=== PATIENT | male | born 1970 | race Caucasian/White ===

== ENCOUNTER 2021-07-15 11:17 | Observation (INO) | payer BC, SELFPAY ==
--- NOTE | ~2021-07-15 | XR_ITS ---
EXAMINATION: XR abdomen/kub 1V INDICATION: Bilateral flank pain TECHNIQUE: Supine views of the abdomen were obtained on 2 radiographs. COMPARISON: 05/10/[address] from yesterday FINDINGS: There is a 3 mm stone in the left kidney lower pole. The 4 mm stone of the right kidney upp er pole described on yesterday's CT examination is not identified. A moderate volume of colonic stool is present. There is mild osteoarthritis of the hips. Surgical clips are noted in the left pelvis. A chronic L3 compression fracture is noted. IMPRESSION: 1. Left nephrolithiasis. Reviewed, dictated and finalized at location A. IMPRESSION: 1. Left nephrolithiasis.
--- NOTE | ~2021-07-15 | CT_ITS ---
EXAMINATION: CT abdomen pelvis wo con DATE: 07/16/2021 08:41 INDICATION: Urinary frequency/burning, pyelonephritis, flank pain TECHNIQUE: Computed tomography (CT) of the abdomen and pelvis was performed without intravenous contr ast. The dose-length product (DLP) was 1141.84 mGy-cm. Automated exposure control and iterative recon struction technique were employed. COMPARISON: 05/08/2018 FINDINGS: There are patchy groundglass and nodular opacities of the visualized lung bases. Small pleu ral effusions are present. The heart size is normal. The liver, spleen, pancreas, and adrenal glands are normal. The gallbladder is mildly distended. There is a 3 mm nonobstructing stone in the lower po le of the left kidney. A 4 mm nonobstructing stone is present in the upper pole of the right kidney. There are no stones in the ureters or bladder. There is no hydronephrosis or hydroureter. The bladder is moderately distended. There is a 2.5 cm cyst of the left kidney. No pathologically enlarged abdom inal or pelvic lymph nodes are identified. There is no free intraperitoneal gas or evidence of bowel obstruction. The appendix is normal. There are bilateral inguinal hernias containing fat. There is a chronic L3 compression fracture. Changes of anterior fusion procedure are noted at L4-5. IMPRESSION: 1. Bilateral nephrolithiasis and moderate distention of the urinary bladder without obstructing stone identified. 2. Mild distention of the gallbladder which could be due to fasting state. Recommend correlation for right upper quadrant tenderness. Reviewed, dictated and finalized at location A. IMPRESSION: 1. Bilateral nephrolithiasis and moderate distention of the urinary bladder wit hout obstructing stone identified. 2. Mild distention of the gallbladder which could be due to fasting state. Blanye mmend correlation for right upper quadrant tenderness.
--- NOTE | ~2021-07-15 | CT_ITS ---
EXAMINATION: CTA chest PE protocol DATE: 07/17/2021 13:59 INDICATION: Tachycardia TECHNIQUE: Computed tomography angiography (CTA) of the chest was performed with 100 mL Omnipaque-350 intravenous contrast timed to evaluate the pulmonary arteries. Coronal maximum intensity projection 3D-reconstructions were created by the technologist. The dose-length product (DLP) was 849.10 mGy-cm. Automated exposure control and iterative reconstruction technique were employed. COMPARISON: None. FINDINGS: The pulmonary arteries are well-opacified. No pulmonary embolism is identified. There are d iffuse patchy airspace opacities. No pleural effusion or pneumothorax is identified. No pathologicall y enlarged thoracic lymph nodes are identified. The heart size is normal. Healed right-sided rib frac tures are noted. There is moderate thoracic spondylosis. IMPRESSION: 1. No pulmonary embolism. 2. COVID 19 pneumonia Reviewed, dictated and finalized at location A.
--- NOTE | ~2021-07-15 | XR_ITS ---
EXAMINATION: XR chest 2V DATE: 07/16/2021 11:06 INDICATION: Fever TECHNIQUE: PA and lateral views of the chest are obtained. COMPARISON: 10/10/2019 FINDINGS: There are patchy opacities of the mid and lower lung zones. Small pleural effusions are not ed. There is no pneumothorax. The cardiomediastinal silhouette is normal. IMPRESSION: 1. Patchy opacities of the mid and lower lung zones, likely pneumonia. Reviewed, dictated and finalized at location A.
[2021-07-15 11:20] VITALS: BP 124/78; PULSE 119; RESP 18; TEMP 36.7; O2SAT 99
[2021-07-15 12:18] LABS: Add Urine Microscopic? YES; Appearance Urine Clear (Clear); Bilirubin Urine Negative (Negative); Blood Urine Negative (Negative); Color Urine Yellow (Yellow); Glucose Urine UA Negative (Negative); Ketones Urine Negative (Negative); Leukocyte Esterase Ur 2+ LEU/UL (Negative); Nitrate Urine Negative (Negative); Protein Urine 1+ mg/dL (Negative); Specific Grav Ur 1.014 (1.001-1.035); WBC Urine >75 /hpf
[2021-07-15] MEDS: LACTATED RINGERS 1,000 ML 999 ML IV CONT ×2 (14:10→16:45)
--- NOTE | 2021-07-15 14:18 | ED.MALEGU ---
HPI - Male Genitourinary General Chief complaint: Urogenital-Male Stated complaint: sent from urgent care septic Time Seen by Provider: 07/15/21 13:32 Source: patient Mode of arrival: ambulatory Limitations: no limitations History of Present Illness HPI Narrative: 50-year-old male Complains of a 1 day history of dysuria frequent urination back pain and a subjective fever He presented to urgent care or apparently he was noted to be tachycardic and there was concern that he could be septic so he was sent to the ED for further evaluation He does not have any nausea or vomiting or diarrhea, no blood in his urine, no abdominal pain Complaint: dysuria Related Data Home Medications Medication Instructions Recorded Confirmed No Home Medications 07/15/21 07/15/21 Allergies Allergy/AdvReac Type Severity Reaction Status Date / Time No Known Allergies Allergy Unverified 07/15/21 15:27 Review of Systems Review of Systems: All systems reviewed & are unremarkable except as noted in HPI and below Constitutional: Constitutional: Reports no additional constitutional complaints, Denies chills, Reports fatigue, Reports fever(s), Denies headache(s) and Reports weakness ENT: Denies headache(s) Cardiovascular: Cardiovascular: Denies chest pain and Denies dyspnea Respiratory: Respiratory: Denies cough and Denies dyspnea Gastrointestinal: Gastrointestinal: Denies abdominal pain, Denies constipation, Denies diarrhea and Denies vomiting Genitourinary: Genitourinary: Denies hematuria, Reports dysuria and Reports urinary frequency Musculoskeletal: Musculoskeletal: Reports myalgias, Denies deformity, Denies arthralgias, Denies joint swelling and Denies numbness Integumentary/Breasts: Skin/Breast: Denies rash and Denies wounds Neurologic: Denies headache(s), Denies focal weakness and Denies numbness Psychiatric: Psychiatric: Reports no additional psychiatric complaints Endocrine: Endocrine: Reports no additional endocrine complaints Hematologic/Lymphatic: Hematologic/Lymphatic: Reports no additional hematologic/lymphatic complaints Allergic/Immunologic: Allergic/Immunologic: Reports no additional allergic/immunologic complaints [facility]LY [facility] Past Medical History Medical History (Updated 07/15/21 @ 18:57 by Shawn Lopez MD) Arm fracture Kidney stones Surgical History Surgical History (Updated 10/10/19 @ 17:53 by Monica Gregory) History of back surgery Social History Social History (Updated 12/11/19 @ 17:53 by Monica Goins Smoking status: Never smoker Alcohol intake: never Exam Const: General: cooperative, healthy appearing, no acute distress and alert Orientation/consciousness: patient oriented x3 (alert) HENMT: Head: normal to inspection, normocephalic and atraumatic Ears: external ears normal General nose exam: no epistaxis Eyes: Conjunctivae: conjunctivae normal EOM: EOMs intact bilaterally Neck: Neck: normal visual inspection, supple and no JVD Resp: Effort & Inspection: normal respiratory effort and not labored Auscultation: clear to auscultation bilaterally and other (BS =) Cardio: Rate: regular rate and tachycardic Rhythm: regular rhythm Heart sounds: no murmurs GI: GI Palp: Yes Soft to palpation, No Tenderness to palpation present (GI), No Guarding due to palpation present (GI) and No Rebound tenderness present : General: Yes no CVA tenderness Other: Prostate is maybe a little firm but not tender or enlarged Skin: General skin exam: normal color and no rashes or lesions noted Neuro: General: patient oriented x3 (alert) and moves all extremities Speech: normal speech Extrem: General: normal to inspection and no pedal edema Psych: Affect: normal affect Course Course Emergency Course: Exam not consistent with prostatitis so appears to be pyelonephritis He did develop a fever while in the ED Lactic was normal Vital Signs Vital signs: Vital Signs Temperature 36.7
[2021-07-15 15:19] LABS: Anion Gap 8 mmol/L (8-16); Blood Urea Nitrogen 14 mg/dL (9-20); Carbon Dioxide 26 mmol/L (22-30); Chloride 100 mmol/L (98-107); Potassium 4.1 mmol/L (3.4-5.0); Sodium 134 mmol/L (137-145)
[2021-07-15 15:20] LABS: Alanine Aminotransferase 41 U/L (4-50); Aspartate Amino Transferase 29 U/L (17-59); Bilirubin,Total 0.8 mg/dL (0.2-1.3); Calcium 8.4 mg/dL (8.4-10.2); Estimated CRCL calculation 90 ml/min; Estimated Glomerular Filt Rate > 60; Glucose 157 mg/dL (65-110); Hematocrit 42.8 % (42.0-52.0); Hemoglobin 13.7 g/dL (14.0-18.0); Mean Corpuscular Hemoglobin 29.8 pg (26-34); Mean Platelet Volume 9.8 fl (7.4-10.4); Platelet Count Result 180 k/mm3 (150-375); Red Cell Distribution Width 13.6 % (11.5-14.5); Total Protein 6.9 g/dL (6.3-8.2); White Blood Count 15.4 K/mm3 (4.5-10.0)
[2021-07-15 15:21] LABS: Albumin Level 3.6 g/dL (3.5-5.1); Alkaline Phosphatase 66 U/L (38-126)
[2021-07-15 15:23] LABS: Lactic Acid Reflex 1.3 mmol/L (0.7-2.1)
[2021-07-15 16:36] VITALS: BP 138/91; PULSE 121; RESP 16; TEMP 39.3; O2SAT 97
[2021-07-15 16:37] LABS: Band Neutrophils Percent 9 % (0-6); Lymphocytes Absolute Manual 0.46 K/mm3 (1.1-4.5); Monocytes Absolute Manual 0.92 K/mm3 (0.1-0.90); Monocytes Percent Manual 6 % (3-9); Neutrophils Absolute Manual 14.01 K/mm3 (1.3-6.7); Neutrophils Percent Manual 82 % (46-73); Total Cells Counted 100
[2021-07-15 16:38] LABS: Hypochromasia 1+ (NORMAL); Platelet Estimate Adequate (Adequate)
[2021-07-15] MEDS: ACETAMINOPHEN 500 MG TABLET 1000 MG PO (16:55)
[2021-07-15 17:25] VITALS: TEMP 38.1
[2021-07-15 18:41] VITALS: BP 97/52; PULSE 94; RESP 18; TEMP 38.1; O2SAT 96
[2021-07-15 19:24] VITALS: BP 116/83; PULSE 105; RESP 20; O2SAT 93
--- NOTE | 2021-07-15 19:29 | PC.NURSE ---
spoke with keri LEDBETTER, from the [facility] pain [facility] to give report. The room isnt clean and they will call when it is.
--- NOTE | 2021-07-15 20:38 | PC.NURSE ---
This patient, Dk Quinones, was admitted to [facility]. Patient/family oriented to hospital policies and general routines including ID bracelet, bed and alarms, visiting hours, pain management, procedures, bathroom and other care routines, personal items, smoking policy, room service/diet, and visiting hours. Information on how to activate the Rapid Response Team has been discussed. Patient/Family are encouraged to report perceived risks to care and to ask questions if they do not understand what they are told or what they should do.
[2021-07-15 20:44] VITALS: BMI 34.9
[2021-07-15] MEDS: LACTATED RINGERS 1,000 ML 150 ML IV CONT (20:58)
--- NOTE | 2021-07-15 21:19 | PM.IMHP ---
H&P: HPI History of Present Illness Date/Time: 07/15/21 21:19 Chief Complaint: Back pain Narrative: This is a 50-year-old male with a non significant past medical history. Patient presented to the emergency room due to back pain ,fevers, chills ,rigors ,urinary frequency, pain and burning with urination for the last 2 days or so, as well as a blood in the urine, states that he has had kidney stones in the past but nothing recent. Denies any nausea, vomiting or diarrhea, no cough, no sputum production ,no shortness of breath. Preliminary workup was significant for urine with significant wbc's. Review of Systems Review of Systems: Pain and burning with urination, urinary frequency, chills and fevers Constitutional: Constitutional: Reports chills, Denies fatigue, Reports fever(s), Denies lethargy, Denies malaise, Reports poor appetite and Denies weakness Eyes: Eyes: Denies change in vision ENT: Denies dysphagia, Denies nasal congestion, Denies nasal discharge, Denies nasal obstruction and Denies odynophagia Cardiovascular: Cardiovascular: Denies pedal edema, Denies irregular heart rhythm, Denies leg ulcers, Denies radiating jaw, neck or arm pain, Denies palpitations, Denies dyspnea on exertion and Denies orthopnea Respiratory: Respiratory: Denies cough and Denies dyspnea Gastrointestinal: Gastrointestinal: Denies nausea and Denies vomiting Genitourinary: Genitourinary: Reports hematuria and Reports urinary frequency Musculoskeletal: Musculoskeletal: Reports no additional musculoskeletal complaints Integumentary/Breasts: Skin/Breast: Reports system reviewed and no additional complaints, except as docu Neurologic: Reports system reviewed and no additional complaints, except as documented Psychiatric: Psychiatric: Reports no additional psychiatric complaints Endocrine: Endocrine: Reports no additional endocrine complaints Hematologic/Lymphatic: Hematologic/Lymphatic: Reports no additional hematologic/lymphatic complaints Allergic/Immunologic: Allergic/Immunologic: Reports no additional allergic/immunologic complaints [facility] Past Medical History Medical History (Updated 07/15/21 @ 18:57 by Shawn Lopez MD) Arm fracture Kidney stones Surgical History Surgical History (Updated 10/10/19 @ 17:53 by Monica Gregory) History of back surgery Family History Family History (Updated 07/15/21 @ 20:48 by Marleny Corbin RN) Mother Small cell lung cancer Father Congestive heart failure Social History Social History (Updated 10/10/19 @ 17:53 by Monica Gregory) Smoking status: Never smoker Alcohol intake: former Substance use: never Spiritual care concerns: No Meds Home Medications and Allergies Home Medications Medication Instructions Recorded Confirmed Type No Home Medications 07/15/21 07/15/21 History Allergies Allergy/AdvReac Type Severity Reaction Status Date / Time No Known Allergies Allergy Verified 07/15/21 20:43 Vital Signs Vital Signs - 24 hr 07/15/21 11:20 07/15/21 16:36 07/15/21 17:25 Temperature 98.0 F 102.7 F H 100.5 F H Pulse Rate 119 H 121 H Respiratory Rate 18 16 Blood Pressure 124/78 138/91 H Pulse Oximetry 99 97 07/15/21 18:41 07/15/21 19:24 Temperature 100.5 F H Pulse Rate 94 105 H Respiratory Rate 18 20 Blood Pressure 97/52 L 116/83 Pulse Oximetry 96 93 Exam Narrative: Laying in [facility] Const: General: cooperative, comfortable, no acute distress, well developed, alert, awake and ill appearing acutely Nutritional Appearance: average body habitus Orientation/consciousness: patient oriented x3 HENMT: Head: normal to inspection, normocephalic and atraumatic Ears: hearing grossly normal bilaterally General nose exam: Normal external nose present Face and sinus: normal facial exam Mouth: Yes Normal oral and palatal mucosa present Eyes: General: appearance normal, both eyes and all related structures Alignment and Position: alignmen
[2021-07-15] MEDS: ACETAMINOPHEN 325 MG TABLET 650 MG PO (21:44)
[2021-07-15 22:02] VITALS: BP 132/84; PULSE 104; RESP 16; TEMP 36.6; O2SAT 95
[2021-07-15] MEDS: HYDROmorphone HCL INJ (*CRX) 1 MG/ML SYR IV PUSH (22:14)
[2021-07-16] MEDS: HYDROmorphone HCL INJ (*CRX) 1 MG/ML SYR IV PUSH ×5 (01:20→18:23)
[2021-07-16] MEDS: LACTATED RINGERS 1,000 ML 150 ML IV CONT (03:45)
[2021-07-16] MEDS: HYDROmorphone HCL INJ (*CRX) 1 MG/ML SYR 2 MG IV PUSH (04:10)
[2021-07-16 06:00] VITALS: BP 149/91; PULSE 101; RESP 16; TEMP 36.1; O2SAT 94
[2021-07-16 06:08] LABS: Basophils Percent Auto 0.2 % (0.2-1.2); Eosinophils Percent Auto 0.3 % (0-4.4); Hematocrit 38.1 % (42.0-52.0); Hemoglobin 12.1 g/dL (14.0-18.0); Immature Granulocyte Absolute 0.08 K/mm3 (0.00-0.031); Immature Granulocyte Percent A 0.7 % (0-0.5); Lymphocytes Absolute Auto 0.79 K/mm3 (0.9-3.2); Lymphocytes Percent Auto 6.5 % (18.3-44.2); Mean Corpuscular HGB Conc 31.8 g/dl (32-36); Mean Corpuscular Hemoglobin 29.3 pg (26-34); Mean Corpuscular Volume 92.3 fl (80-100); Mean Platelet Volume 9.2 fl (7.4-10.4); Monocytes Percent Auto 8.3 % (2.6-8.5); Neutrophils Absolute Auto 10.2 K/mm3 (1.3-6.7); Platelet Count Result 163 k/mm3 (150-375); Red Blood Count 4.13 M/mm3 (4.6-6.20); Red Cell Distribution Width 13.3 % (11.5-14.5); White Blood Count 12.1 K/mm3 (4.5-10.0)
[2021-07-16 08:00] VITALS: BP 142/95; PULSE 94; RESP 20; TEMP 36.6; O2SAT 94
--- NOTE | 2021-07-16 08:25 | PC.NURSE ---
DOWN VIA WC FOR CT OF ABDOMEN.
--- NOTE | 2021-07-16 08:42 | PC.NURSE ---
RETURNS FROM CT ABDOMEN TO [facility] 2.
--- NOTE | 2021-07-16 09:55 | PC.NURSE ---
CALLED RESULTS OF CT ABDOMEN TO SIMONA GARNETT UPDATED ON PAIN CONTROL. ORDERS RECEIVED.
--- NOTE | 2021-07-16 10:50 | PC.NURSE ---
SIMOAN Powell PA HERE TO SEE PT AT BEDSIDE. DOWN VIA WC FOR CXR.
--- NOTE | 2021-07-16 10:57 | PM.IMPN ---
Progress Note: A&P Assessment and Plan (1) Complicated UTI (urinary tract infection): Code(s): N39.0 - Urinary tract infection, site not specified Status: Acute Assessment and Plan: UA suspicious for UTI -patient was started on ceftriaxone and for now we will continue with that. He has been recently hospitalized which raises the concern for hospital-acquired pneumonia with resistant bacteria. With that being said, his fever curve and leukocytosis has improved with ceftriaxone so we will continue with that -await blood cultures and urine cultures -will obtain bladder scan -CT of the abdomen pelvis showed bilateral nephrolithiasis but no obstructing stone. There is moderate distention of the urinary bladder -may need Curry catheter depending on the above results. If he is not retaining, consider oxybutynin for possible bladder spasm (2) Sepsis: Code(s): A41.9 - Sepsis, unspecified organism Status: Acute Assessment and Plan: Secondary to above -continue antibiotics and await cultures -fever has improved so far -will stop fluids (3) Sinus tachycardia: Code(s): R00.0 - Tachycardia, unspecified Status: Acute Assessment and Plan: Mildly tachycardic, improved -will obtain EKG. Patient has no chest pain. Suspect sinus tachycardia due to above (4) History of COVID-19: Code(s): Z86.16 - Personal history of COVID-19 Status: Acute Assessment and Plan: Patient was hospitalized recently due to COVID and required 2 L of oxygen and was on dexamethasone and remdesivir. He was tested positive on the 29 of June and started having symptoms 2-3 days prior. He is outside of his infectious quarantine so no isolation is needed at this time. CT shows evidence of viral pneumonia, likely resolving from his hospitalization. Will check chest x-ray for completeness sake. No concern for secondary bacterial pneumonia at this time. Cough is improving (5) Hyperglycemia: Code(s): R73.9 - Hyperglycemia, unspecified Status: Acute Assessment and Plan: Nonfasting glucose 157 -will check A1c in the morning Additional Plan CT scan with possible gallbladder distension. Likely due to fasting. Monitor Time Spent With Patient Time with patient: 25 - 35 minutes Subjective Date/time seen: 07/16/21 10:57 Interval history: Pt is a 50-year-old male here for UTI. Patient was seen today and states he is in excruciating abdominal pain. He says it mostly hurts in his bladder, down to his penis into his testicles. He does not feel like his testicles actually have pain or swelling but it just radiates down to that area. He continues to urinate and has pain with that. He states he does feel like his heart is racing a little bit and is a little sweaty. He said he was recently hospitalized for COVID but was never catheterized but did receive steroids. He says he has a history of kidney stones but this pain is worse. He denies chest pain, shortness of breath, residual cough, nausea or vomiting. He said he was tested positive for COVID on 06/29 and had symptoms starting 2-3 days prior to that. He is on unvaccinated. No concerns for STIs Review of Systems Review of Systems: All systems reviewed & are unremarkable except as noted in HPI and below Exam Narrative: General: Well developed well nourished patient in NAD HEENT: normocephalic Neck: supple Neuro: Alert and oriented x4 CV:RRR on exam Resp: Crackles bilaterally. No wheezing or rhonchi. No conversational dyspnea Abd: Soft, non distended. Pain to palpation to the lower abdomen. : Patient is uncircumcised without any erythema surrounding the penis or for skin. Both testicles were palpated which did not elicit any pain. No masses were noted Extremities: No swelling, erythema, or pain to palpation. Objective Data Vital Signs Vital Signs: Vital Signs - 24 hr 07/15/21 11:20
--- NOTE | 2021-07-16 11:00 | ECG_ITS ---
Measurements Intervals [place] Rate: 109 P: 40 RI: 160 QRS: 30 QRSD: 94 T: 60 QT: 316 QTc: 427 Interpretive Statements SINUS TACHYCARDIA EARLY PRECORDIAL R/S TRANSITION NONSPECIFIC ST & T-WAVE ABNORMALITY- DIFFUSE LEADS BASELINE ARTIFACT- I, III, AVR, AVL, V3-V6 ABNORMAL ECG Electronically Signed On 07-16-2021 12:53:40 CDT by Puma Sanchez D.O.
--- NOTE | 2021-07-16 11:55 | PC.NURSE ---
BLADDER SCAN COMPLETED. REVEALS VOLUMES 736ML TO 800ML AFTER SEVERAL SMALL VOIDS IN URINAL AND TOILET. HAS HAD LIMITED RELIEF FROM PAIN MEDS GIVEN SO FAR THIS SHIFT. HAS ABDOMINAL PAIN WHEN LOWER ABDOMEN SCANNED FOR URINE VOLUME. WILL REPORT TO SIMONA GARNETT
--- NOTE | 2021-07-16 13:10 | PC.NURSE ---
Addendum entered by Megan Kingston RN 07/16/21 20:37: ROBERTS INSERTION WAS AT 1350, NOT 1310. KE Original Note: 16FR. ROBERTS INSERTED URETHRALLY WITHOUT DIFFICULTY. TOTAL INITIAL URINE OUTPUT 1200ML IN ROBERTS BAG. REPORTS RELIEF OF ACUTE PAIN AND PRESSURE IN LOWER ABDOMEN AFTER DRAINING BLADDER. REPEAT BLADDER SCAN SHOWS 0ML RESIDUAL URINE.
[2021-07-16 16:00] VITALS: BP 116/76; PULSE 92; RESP 20; TEMP 35.9; O2SAT 94
--- NOTE | 2021-07-16 17:00 | PC.NURSE ---
HAS BEEN MUCH MORE AT EASE AND ANXIETY REDUCED AFTER ROBERTS CATHETER PLACED AND DRAINING URINE. STILL W/ C/O LOWER ABDOMINAL BURNING HOWEVER.
[2021-07-16 20:49] VITALS: BP 135/84; PULSE 67; RESP 16; TEMP 37.4; O2SAT 95
[2021-07-16] MEDS: HYDROcodone/acetaminophen (*CRX) 5-325 MG TABLET 1 TAB PO (21:03)
--- NOTE | 2021-07-17 | ECHO_ITS ---
Patient Info Name: Dk Quinones Age: 50 years : 1970 Gender: Male Ht: 71 in Wt: 250 lbs BSA: 2.42 m2 HR: 110 bpm BP: 146 / 86 mmHg Technical Quality: Good Exam Date: 07/17/2021 11:46 AM Exam Location: [facility] Patient Status: Inpatient Admit Date: 07/15/2021 Staff Ordering Physician: Nicolasa Anton PA-C Human Resources Hr Generalist: Shazia Quintero RDCS Attending Provider: Nicolasa Anton PA-C Referring Physician: Sloane FISHER; Exam Type: CA echo doppler color flow Study Info Indications R00.0 - Tachycardia, unspecified Complete two-dimensional, color flow and Doppler transthoracic echocardiogram is performed. Summary 1. Complete two-dimensional, color flow and Doppler transthoracic echocardiogram is performed. 2. Left ventricular chamber dimension is normal. 3. Left ventricular systolic function is normal, estimated at 55-60%. 4. The left ventricular diastolic function is grade II diastolic dysfunction. 5. E/e' 12 is mildly elevated. 6. Global longitudinal strain is abnormal at -15.5%. 7. No pulmonary hypertension, estimated pulmonary arterial systolic pressure is 15 mmHg. Left Ventricle E/e' 12 is mildly elevated. Global longitudinal strain is abnormal at -15.5%. Left ventricular chamber dimension is normal. Left ventricular systolic function is normal, estimated at 55-60%. The left ventricular diastolic function is grade II diastolic dysfunction. Right Ventricle Right ventricular chamber dimension is normal. Right ventricular systolic function is normal. Left Atria Left atrial chamber dimension is normal. Right Atria Right atrial chamber dimension is normal. Aortic Valve The aortic valve is trileaflet. There is no aortic valve stenosis. There is no aortic valve regurgitation. Pulmonic Valve There is no pulmonic regurgitation. Mitral Valve There is no mitral valve stenosis. There is no mitral valve regurgitation. Tricuspid Valve There is no tricuspid valve regurgitation. No pulmonary hypertension, estimated pulmonary arterial systolic pressure is 15 mmHg. Pericardium/Pleural There is no pericardial effusion. Inferior Vena Cava Normal inferior vena cava with >50% collapse upon inspiration consistent with normal right atrial pressure, 5 mmHg. Aorta The aortic root size at the sinus of Valsalva is normal. Left Ventricular Outflow Tract Name Value Normal LVOT 2D LVOT Diameter 2.0 cm LVOT Doppler LVOT Peak Gradient 5 mmHg LVOT Mean Gradient 3 mmHg LVOT VTI 22 cm LVOT VTI/AV VTI Ratio 1.1 LVOT Stroke Volume 69 ml LVOT CO 7.3 l/min LVOT CI 3.0 l/min/m2 Pulmonic Valve Name Value Normal RVOT Doppler
[2021-07-17 05:38] VITALS: BP 141/89; PULSE 110; RESP 16; TEMP 37.1; O2SAT 94
[2021-07-17 06:13] LABS: Basophils Percent Auto 0.3 % (0.2-1.2); Eosinophils Absolute Auto 0.2 K/mm3 (0-0.3); Eosinophils Percent Auto 2.1 % (0-4.4); Hematocrit 36.3 % (42.0-52.0); Hemoglobin 11.8 g/dL (14.0-18.0); Immature Granulocyte Absolute 0.03 K/mm3 (0.00-0.031); Immature Granulocyte Percent A 0.4 % (0-0.5); Lymphocytes Absolute Auto 0.96 K/mm3 (0.9-3.2); Lymphocytes Percent Auto 12.5 % (18.3-44.2); Mean Corpuscular HGB Conc 32.5 g/dl (32-36); Mean Corpuscular Hemoglobin 29.9 pg (26-34); Mean Corpuscular Volume 92.1 fl (80-100); Mean Platelet Volume 9.6 fl (7.4-10.4); Monocytes Absolute Auto 0.7 K/mm3 (0.1-0.6); Neutrophils Absolute Auto 5.8 K/mm3 (1.3-6.7); Neutrophils Percent Auto 75.7 % (45.5-73.1); Platelet Count Result 141 k/mm3 (150-375); Red Blood Count 3.94 M/mm3 (4.6-6.20); Red Cell Distribution Width 13.2 % (11.5-14.5); White Blood Count 7.7 K/mm3 (4.5-10.0)
[2021-07-17 06:38] LABS: Alanine Aminotransferase 28 U/L (4-50); Albumin Level 3.1 g/dL (3.5-5.1); Alkaline Phosphatase 55 U/L (38-126); Anion Gap 4 mmol/L (8-16); Aspartate Amino Transferase 23 U/L (17-59); Bilirubin,Total 0.9 mg/dL (0.2-1.3); Blood Urea Nitrogen 13 mg/dL (9-20); Calcium 8.1 mg/dL (8.4-10.2); Carbon Dioxide 25 mmol/L (22-30); Chloride 104 mmol/L (98-107); Estimated CRCL calculation 110 ml/min; Estimated Glomerular Filt Rate > 60; Glucose 114 mg/dL (65-110); Potassium 3.7 mmol/L (3.4-5.0); Sodium 133 mmol/L (137-145)
[2021-07-17 07:35] LABS: Hemoglobin A1C 6.1 % (<5.7)
[2021-07-17 08:00] VITALS: PULSE 104; RESP 14; O2SAT 93
[2021-07-17 08:19] VITALS: BP 146/86; PULSE 104; RESP 14; TEMP 37; O2SAT 93
--- NOTE | 2021-07-17 10:04 | PC.NURSE ---
Catheter removed without difficulty at 0945, no c/o.
[2021-07-17 10:29] LABS: D Dimer 0.67 ug/mL (<0.48)
--- NOTE | 2021-07-17 10:49 | PC.NURSE ---
1000- Pt instructed on plan after catheter removed and explained the process of bladder scanning. Pt verbalizes understanding.
--- NOTE | 2021-07-17 13:15 | PM.DS ---
DS: Admitting Diagnosis Discharge Date 07/17/2021 Admitting Diagnosis UTI sepsis DS: Discharge Diagnosis Discharge Diagnosis (1) Complicated UTI (urinary tract infection): Code(s): N39.0 - Urinary tract infection, site not specified Status: Acute Assessment and Plan: Urine culture growing Klebsiella pneumonia which was sensitive to ceftriaxone which he received during his stay. He was then transition to Augmentin at discharge -blood cultures have no growth today and will be monitored until finalized -CT of the abdomen pelvis showed bilateral nephrolithiasis but no obstructing stone. There is moderate distention of the urinary bladder -the patient required a Curry catheter during his stay due to urinary retention. A voiding trial was done and he was able to void at discharge. He had no further pain. However, he did have a slightly high urine retention but not enough to require a catheter at discharge. I did urge him to follow-up with a urologist for further workup. He is to come back to the ER if he starts having abdominal pain again which would likely indicate that he is having further retention. He has agreed to follow up outpatient (2) Sepsis: Code(s): A41.9 - Sepsis, unspecified organism Status: Acute Assessment and Plan: Secondary to above -improved (3) Sinus tachycardia: Code(s): R00.0 - Tachycardia, unspecified Status: Acute Assessment and Plan: Mildly tachycardic -patient states he always runs high end of normal -EKG shows sinus tachycardia. Since the patient just re covered from COVID, and echocardiogram was done which showed grade 3 diastolic dysfunction but normal systolic function with no pulmonary hypertension. CTA was also performed which showed evidence of COVID pneumonia but no PE (4) History of COVID-19: Code(s): Z86.16 - Personal history of COVID-19 Status: Acute Assessment and Plan: Patient was hospitalized recently due to COVID and required 2 L of oxygen and was on dexamethasone and remdesivir. He was tested positive on the 29 of June and started having symptoms 2-[address] shows evidence of viral pneumonia, likely resolving from his hospitalization. No concern for secondary bacterial pneumonia at this time. Cough is improving (5) Hyperglycemia: Code(s): R73.9 - Hyperglycemia, unspecified Status: Acute Assessment and Plan: Patient is prediabetic and I spoke with him about this. He is going to follow up with his primary care physician -A1c 6.1 (6) Urinary retention: Code(s): R33.9 - Retention of urine, unspecified Status: Acute Assessment and Plan: As above -needs to follow-up with a urologist DS: Summary Hospital Course Hospital Course: date of service 07/17/2021 Patient is a 50-year-old male who recently recovered from COVID pneumonia who presented emergency room for frequent urination, fever and abdominal pain. Vitals in the ER were temperature 36.7? C, pulse 118, respiratory rate 18, blood pressure 124/78, pulse ox 99 on room air. Initial white blood cell count 15.4, hemoglobin 13.7, hematocrit 42.8, platelets 180. BMP relatively normal with exception of random glucose 157. UA suspicious for UTI. Abdominal CT showed bilateral nephrolithiasis and moderate distention of the urinary bladder without obstructing stone. There is also mild distention of the gallbladder which could be due to fasting state. This was suspected due to no pain in the right upper quadrant or nausea/vomiting. Patient was admitted to the hospitalist service and started on ceftriaxone. A bladder scan showed greater than 500 cc of urine and a Curry catheter was placed. He improved with this and the day of discharge and a voiding trial. His symptoms were improved and he no longer had frequent urination or abdominal pain but did still have some urinary retention at discharge b
[2021-07-17 14:00] VITALS: BP 146/84; PULSE 108; RESP 16; TEMP 36.6; O2SAT 95
--- NOTE | 2021-07-23 12:27 | PC.NURSE ---
Blood cx is negative.
== END 2021-07-17 16:30 | disposition home or self-care (01) ==
LOC: ANHED 18:57 → ANHCPC 19:05
PROVIDERS: Emergency Medicine; Admitting Provider Internal Medicine; Emergency Provider Emergency Medicine; PCP Physician Assistant; Visit Provider Physician Assistant
DX: N39.0 Urinary tract infection, site not specified (principal); N10 Acute pyelonephritis; R00.0 Tachycardia, unspecified; Z86.16 Personal history of COVID-19; R73.9 Hyperglycemia, unspecified; B96.1 Klebsiella pneumoniae [K. pneumoniae] as the cause of diseases classified elsewhere; A41.9 Sepsis, unspecified organism; R33.9 Retention of urine, unspecified
CPT/HCPCS: 36415; 71046; 71275; 74018; 74176; 80048; 80053; 80076; 81001; 83036; 83605; 85025; 85380; 87040; 87077; 87086; 87088; 87186; 93005; 93306; 96361; 96365; 96366; 96374; 96375; 96376; 99285; A9270; G0378; J0131; J0696; J1170; J7120; Q9967

== ENCOUNTER 2023-10-23 15:51 | Emergency (ER) | payer BC, SELFPAY ==
--- NOTE | ~2023-10-23 | CT_ITS ---
EXAMINATION: CTA brain carotid DATE: 10/23/2023 19:08 [employer] INDICATION: Cranial nerve palsy. Diplopia. TECHNIQUE: Computed tomographic angiography (CTA) of the head was performed without and with 100 mL O mnipaque-350 intravenous contrast. CTA of the neck was performed with intravenous contrast. The dose- length product was 1223.69 mGy-cm. Maximum intensity projection and volume rendered 3D-reconstruction s were created by the technologist on a separate workstation. Automated exposure control and iterativ e reconstruction technique were employed. COMPARISON: CT brain dated 10/23/2023. FINDINGS: HEAD CTA: Vertebral arteries are codominant. No significant stenosis, occlusion or aneurysm. No vascu lar anomalies identified. NECK CTA: Visualized aspects of the aorta and great vessels are unremarkable. No significant atherosc lerotic plaque, stenosis, occlusion or dissection. Vertebral arteries are unremarkable. There are non enlarged cervical lymph nodes, likely of no clinical significance. There is 0% stenosis of the proximal right internal carotid artery relative to normal distal artery l umen diameter (NASCET criteria). There is severe% stenosis of the proximal left internal carotid rosi ry relative to normal distal artery lumen diameter. IMPRESSION: 1: No significant vascular abnormality of the head or neck. Reviewed, dictated and finalized at location A. [employer]
--- NOTE | ~2023-10-23 | CT_ITS ---
EXAMINATION: CT brain wo con DATE: 10/23/2023 17:53 INDICATION: Diplopia. Headache. TECHNIQUE: Computed tomography (CT) of the head was performed without intravenous contrast. The dose- length product was 681.00 mGy-cm. Automated exposure control and iterative reconstruction technique were employed. COMPARISON: None FINDINGS: There is ventriculomegaly. No midline shift. There are scattered mild periventricular and s ubcortical white matter changes, most likely related to small vessel ischemic disease (microangiopath y). No acute intracranial hemorrhage, infarction or mass. No mass effect. Paranasal sinuses and masto ids are pneumatized. No depressed skull fractures. Orbits are symmetric without disconjugate gaze. IMPRESSION: 1. Mild ventriculomegaly. Consider normal pressure hydrocephalus in the appropriate clinical setting. Reviewed, dictated and finalized at location A. [facility] AIDE IMPRESSION: 1. Mild ventriculomegaly. Consider normal pressure hydrocephalus in the appropr iate clinical setting.
[2023-10-23 15:56] VITALS: BP 174/101; PULSE 110; RESP 18; TEMP 36.4; O2SAT 98
[2023-10-23 17:07] VITALS: BP 138/95; PULSE 96; RESP 20; O2SAT 98
--- NOTE | 2023-10-23 17:38 | ED.EYEPROB ---
HPI - Eye Problem General Chief complaint: Eye Problems <Neela Aguilar PA-C - Last Filed: 10/24/23 02:48> Stated complaint: Eyes are crossing, can't see right <Neela Aguilar PA-C - Last Filed: 10/24/23 02:48> Time Seen by Provider: 10/23/23 17:04 <Neela Aguilar PA-C - Last Filed: 10/24/23 02:48> Source: patient <Neela Aguilar PA-C - Last Filed: 10/24/23 02:48> Mode of arrival: ambulatory <Neela Aguilar PA-C - Last Filed: 10/24/23 02:48> Limitations: no limitations <Nelea Aguilar PA-C - Last Filed: 10/24/23 02:48> History of Present Illness HPI Narrative: This is a 53 year old male that presents to the ER for double vision. Reports it has been ongoing since this morning. Reports an associated mild headache. Reports his vision is blurry at a distance. It resolves when he closes one eye. Denies fever, vomiting, or focal numbness or weakness. <Neela Aguilar PA-C - Last Filed: 10/24/23 02:48> Related Data Allergies/adverse reactions: Allergies Allergy/AdvReac Type Severity Reaction Status Date / Time No Known Allergies Allergy Verified 10/23/23 17:08 <Neela Aguilar PA-C - Last Filed: 10/24/23 02:48> Review of Systems Review of Systems: CONSTITUTIONAL: Denies fever EYES: Reports visual changes. Denies redness, or discharge. GASTROINTESTINAL: Denies vomiting NEUROLOGIC: Reports headache. Denies numbness, or weakness. <Neela Aguilar PA-C - Last Filed: 10/24/23 02:48> All systems reviewed & are unremarkable except as noted in HPI and below <Neela Aguilar PA-C - Last Filed: 10/24/23 02:48> [facility] Past Medical History Medical History: Medical History (Updated 10/24/23 @ 02:40 by Neela Aguilar PA-C) Arm fracture Kidney stones <Neela Aguilar PA-C - Last Filed: 10/24/23 02:48> Surgical History Surgical History: Surgical History (Updated 10/10/19 @ 17:53 by Monica Gregory) History of back surgery <Neela Aguilar PA-C - Last Filed: 10/24/23 02:48> Family History Family History: Family History (Updated 07/15/21 @ 20:48 by Marleny Valdovinos RN) Mother Small cell lung cancer Father Congestive heart failure <Neela Aguilar PA-C - Last Filed: 10/24/23 02:48> Social History Social History: Social History (Updated 10/10/19 @ 17:53 by Monica Gregory) Smoking status: Never smoker Alcohol intake: former Substance use: never Spiritual care concerns: No <Neela Aguilar PA-C - Last Filed: 10/24/23 02:48> Exam Narrative: GENERAL: Well-appearing, well-nourished, and in no acute distress. HEAD: Normocephalic, atraumatic. EYES: PERRLA and EOMI. ENT: Nares clear, no rhinorrhea or epistaxis. Mucous membranes moist. Oropharynx without tonsillar hypertrophy exudate or other lesions. Bilateral TMs pearly hudson non-bulging NECK: Supple. No adenopathy or masses. Normal ROM CHEST: Clear to auscultation. No respiratory distress. No wheezes rales or rhonchi HEART: Regular rate and rhythm. No murmur heard. Normal peripheral pulses. EXTREMITIES: Normal range of motion. No edema. Strength equal in bilateral upper and lower extremities (5/5) SKIN: Warm, dry, no rash. NEURO: No focal deficits. Alert and oriented x3. Cranial nerves 2-12 are grossly intact, except the 6th cranial nerve. Normal finger to nose PSYCH: Normal mood and affect <LACIE Lacy Last Filed: 10/24/23 02:48> Course Course Emergency Course: Patient updated on workup and agrees with plan of care <Neela Aguilar PA-C - Last Filed: 10/24/23 02:48> COMMUNITY RELATIONS SPECIALIST/PA Physician Supervision This visit was performed by both a physician and an APC. I performed all aspects of the MDM as documented. <William Fonseca MD - Last Filed: 10/24/23 19:39> Consultations Consultation #1: Dr. Madrigal, neurology at [facility] accepts transfer as direct admit <Neela Aguilar PA-C - Last Filed: 10/24/23 02:48> Date: 10/23/23
[2023-10-23] MEDS: ACETAMINOPHEN 500 MG TABLET 1000 MG PO (18:23)
[2023-10-23 18:32] LABS: Basophils Percent Auto 0.5 % (0.2-1.2); Eosinophils Absolute Auto 0.2 K/mm3 (0-0.3); Eosinophils Percent Auto 2.6 % (0-4.4); Hematocrit 44.3 % (42.0-52.0); Hemoglobin 13.9 g/dL (14.0-18.0); Immature Granulocyte Absolute 0.02 K/mm3 (0.00-0.031); Immature Granulocyte Percent A 0.3 % (0-0.5); Lymphocytes Absolute Auto 1.39 K/mm3 (0.9-3.2); Lymphocytes Percent Auto 24.1 % (18.3-44.2); Mean Corpuscular HGB Conc 31.4 g/dl (32-36); Mean Corpuscular Hemoglobin 28.7 pg (26-34); Mean Corpuscular Volume 91.3 fl (80-100); Mean Platelet Volume 9.7 fl (7.4-10.4); Monocytes Absolute Auto 0.5 K/mm3 (0.1-0.6); Monocytes Percent Auto 8.7 % (2.6-8.5); Neutrophils Absolute Auto 3.7 K/mm3 (1.3-6.7); Neutrophils Percent Auto 63.8 % (45.5-73.1); Platelet Count Result 194 k/mm3 (150-375); Red Blood Count 4.85 M/mm3 (4.6-6.20); Red Cell Distribution Width 13.3 % (11.5-14.5); White Blood Count 5.8 K/mm3 (4.5-10.0)
[2023-10-23 18:35] LABS: Prothrombin Time 13.9 Seconds (11.1-14.7)
[2023-10-23 18:36] LABS: Partial Thromboplastin Time 32.8 SECONDS (22.3-36.8)
[2023-10-23 18:42] VITALS: BP 151/96; PULSE 90; RESP 20; O2SAT 96
[2023-10-23 18:49] LABS: Alanine Aminotransferase 39 U/L (6-50); Alkaline Phosphatase 80 U/L (38-126); Anion Gap 5 mmol/L (8-16); Aspartate Amino Transferase 35 U/L (17-59); Bilirubin,Total 0.6 mg/dL (0.2-1.3); Blood Urea Nitrogen 20 mg/dL (9-20); CRP 0.7 mg/dL (<1.0); Calcium 8.8 mg/dL (8.4-10.2); Carbon Dioxide 27 mmol/L (22-30); Chloride 107 mmol/L (98-107); Estimated CRCL calculation 82 ml/min; Estimated Glomerular Filt Rate > 60; Glucose 101 mg/dL (65-110); Potassium 4.2 mmol/L (3.4-5.0); Sodium 139 mmol/L (137-145)
[2023-10-23 19:05] LABS: Erythrocyte Sedimentation Rate 15 mm/hr (0-20)
[2023-10-23 19:21] VITALS: BP 146/98; PULSE 97; RESP 22; O2SAT 98
[2023-10-23 22:09] VITALS: BP 138/93; PULSE 84; RESP 15; O2SAT 98
== END 2023-10-23 22:57 | disposition short-term general hospital (02) ==
PROVIDERS: Emergency Provider Physician Assistant; PCP Physician Assistant
DX: H53.2 Diplopia (principal); Z87.442 Personal history of urinary calculi; G93.89 Other specified disorders of brain
CPT/HCPCS: 36415; 70450; 70496; 70498; 80053; 84443; 85025; 85610; 85652; 85730; 86140; 99285; A9270; Q9967

== ENCOUNTER 2025-01-25 15:59 | Emergency (ER) | payer BC, SELFPAY ==
--- NOTE | ~2025-01-25 | CT_ITS ---
CT lumbar spine wo con Ordering provider: Nohemy Magana APRN History: 54 years Male with . back pain (different from previous pain) . Comparison: None. Technique: CT lumbar spine without contrast. Automated exposure control and iterative reconstruction technique were employed. The dose-length product was 1323.19 mGy-cm. FINDINGS: VERTEBRAE: Chronic loss of volume of L3 is noted. Normal height and alignment. No subluxation or visi ble acute fracture. Postoperative changes at the level of L4-L5. DISC SPACES: Degenerative disc disease at the level of L2-L3 otherwise, Well maintained. Cyst spacers seen at the level of L4-L5. T12-L1: No stenosis. L1-L2: No stenosis. L2-L3: No stenosis. Diffuse disc bulge. The L3-L4: No stenosis. Diffuse disc bulge with narrowing of the foramina. L4-L5: No stenosis. L5-S1: No stenosis. PARASPINOUS SOFT TISSUES: Tiny stone in the right kidney upper pole. Bilateral sacroiliacs. Mild athe romatous disease of the abdominal aorta. IMPRESSION: No acute osseous abnormality. Postoperative changes in the lower lumbar area. Multilevel degenerative disc bulge. Reviewed, dictated and finalized at location A.
--- NOTE | ~2025-01-25 | CT_ITS ---
EXAMINATION: CT abdomen pelvis wo con DATE: 01/25/2025 16:57 INDICATION: Left flank pain TECHNIQUE: Computed tomography (CT) of the abdomen and pelvis was performed without intravenous contr ast. The dose-length product was 502.21 mGy-cm. Automated exposure control and iterative reconstructi on technique were employed. COMPARISON: None. FINDINGS: The liver, spleen, pancreas, adrenal glands are unremarkable. There are nonobstructing bila teral renal stones. There is a 2.7 cm left renal cyst. Bilateral fat-containing inguinal hernias. Non obstructive bowel gas pattern. Colonic diverticulosis without evidence for diverticulitis. Fatty infi ltration of the liver. No hydronephrosis. No ureteral stones. Gallbladder is contracted. No free air or free fluid. No abnormal pelvic masses or fluid collections. Status post anterior and posterior fus ion at L4 S1. There is a chronic burst fracture of L3. There is moderate-severe lumbar spondylosis. IMPRESSION: 1. Nonobstructing bilateral nephrolithiasis. Reviewed, dictated and finalized at location A.
--- OUTSIDE RECORDS SUMMARY | 2025-01-25 16:02 | XMS_ITS | Referral Summary ---
Author Organization [facility] Address [address] [place] [phone] Care Team Providers Care Cream Beater Name Role Phone Rome Jacobson MD Primary Care Provider [phone] Filipe Briggs MD Unavailable Encounters Date Type Department Care Team Description 01/18/2025 Orders Only [facility] Pre Anesthesia Testing [address] [place] [phone] Farzad Anthony MD 01/17/2025 Telephone [facility] Pre Anesthesia Testing [address] [place] [phone] Tracey Fischer RN 01/16/2025 2:15 PM CDT - 01/16/2025 11:59 PM CDT Hospital Encounter [facility] - Imaging [address] [place] [phone] Fusion of spine of lumbar region; 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 Orthopaedic Surgery [address] [place] [address] Advanced Medicine 6th [place] [address] [place] [address] Forrest Regan MD injection 12/05/[address] [facility] Orthopaedic Surgery [address] [place] [address] 6th [place] [address] [place] [address] Forrest Regan MD injection follow up 11/28/2024 1:32 PM CLINICAL DATA ASSISTANT - 11/28/2024 11:59 PM CLINICAL DATA ASSISTANT Hospital Encounter [facility] Pain Center at the [facility] [place] [address] [facility] Advanced [facility] [address] [place] [address] Jojo Oviedo MD Radiculopathy of lumbar region (Primary Dx); Fusion of spine of lumbar region; Degenerative lumbar spinal stenosis; Lumbar radiculopathy Discharge Disposition: Discharge to home or self care 11/26/[address] [facility] at the [facility] [address] [place] [address] [address] [place] [address] Jojo Oviedo MD PMC Preprocedure 11/16/[address] [facility] Pain Center at the [facility] [address] [facility] [address] [place] [address] Jojo Oviedo MD Lumbar radiculopathy (Primary Dx) 11/15/[address] [facility] Pain Center at the [facility] [address] [facility] [address] [place] [address] Jojo Oviedo MD Scheduling Appointments from Last 3 Months Allergies No known active allergies Medications acetaminophen 500 mg capsuleIndicati ons:Pain,Pain Take 2 capsules (1,000 mg total) by mouth every 6 (six) hours 120 capsule 4 Active Entresto 24-26 mg tablet Take 1 tablet by mouth 2 (two) times a day Active spironolactone (ALDACTONE) 25 mg tablet Take 1 tablet (25 mg total) by mouth every morning Active carvediloL (COREG) 6.25 mg tablet Take 1 tablet (6.25 mg total) by mouth 2 (two) times a day with meals Active ascorbic acid (VITAMIN C ORAL) Take by mouth every morning 01/17/20 25 Discontinu ed(Error) carvediloL (COREG) 3.125 mg tablet Take 1 tablet (3.125 mg total) by mouth 4 01/17/20 Discontinu ed(Error) Active Problems Problem Noted Date Diagnosed Date Spinal stenosis, lumbar herb on, with neurogenic claudication 01/09/2025 Lumbar radiculopathy 01/09/2025 Cardiomyopathy 01/07/2025 AURELIO (obstructive sleep apnea) 01/07/2025 Snoring 01/07/2025 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 06/12/2024 Acne vulgaris 02/07/2024 Other rosacea 02/07/2024 Xerosis cutis 02/07/2024 Diplopia 10/24/2023 Assessment & Plan (01/06/2024 4:10 PM CLINICAL DATA ASSISTANT): -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 (+)borderline HTN -small ET flick today; asymptomatic -pt was having horizontal diplopia x 1-2 weeks; also resolved -ocular health otherwise unremarkable today OU -ok to continue care at outside [facility] for glasses/CTL fittings -RTC here prn Pseudarthrosis following spinal fusion 3 Pseudoarthrosis of lumbar spine 07/20/2023 Spondylosis of lumbar region without myelopathy or radiculopathy 07/20/2023 Chronic low back pain 01/12/2023 Folliculitis 01/12/2023 Hyperlipidemia 01/12/2023 Impaired glucose tolerance 01/12/2023 Intermittent dysphagia 01/12/2023 Pyelonephritis 12/17/2022 Sinus tachycardia 12/11/2021 Assessment & Plan (12/11/2021 6:43 PM CLINICAL DATA ASSISTANT): Patient reports history of baseline tachycardia. Suspect worsening tachycardia and hypotension were related to hypovolemia. Both improved with IVF. On telemetry, his HR are between 100-110. He has no other symptoms at this time. CT PE was negative. Hgb is stable, no c/f bleeding. Agree with infectious w/u as ordered by orthopedics--blood cultures pending, UA negative, CT without pneumonia. No c/f surgical site infection per orthopedic team. -Encourage PO hydration. Continue telemetry monitoring. If tachycardia worsens, would give another 1L bolus of IVF. Hypotension 12/11/2021 Assessment & Plan (12/11/2021 6:43 PM CLINICAL DATA ASSISTANT): Resolved with IVF, likely dehydration. Acute sciatica 12/05/2021 Degeneration of lumbar intervertebral disc 12/05 History of thrombocytopenia 12/02/2021 At risk for obstructive sleep apnea 12/02/2021 Herniation of intervertebral disc between L5 and S1 11/30/2021 Overview (11/30/2021): Added automatically from request for surgery [id number] Neuroforaminal stenosis of lumbosacral spine Overview (11/13/2021): Added automatically from request for surgery [id number] Cerebral ventriculomegaly 07/14/2021 Acute respiratory failure with hypoxia 1 Obesity 07/14/2021 NICOLE (acute kidney injury) 07/14/2021 Acute hyponatremia 07/14/2021 Assessment & Plan (12/11/2021 6:44 PM CLINICAL DATA ASSISTANT): Likely related to hypovolemia. Expect will improve after IVF that were given today. -Repeat BMP in AM Elevated liver enzymes 07/14/2021 Thrombocytopenia due to COVID-19 virus 1 Viral sepsis 07/14/2021 Hepatic steatosis 07/14/2021 Orthostatic dizziness 07/14/2021 Carotid stenosis, asymptomatic, bilateral 2020 Pneumonia due to COVID-19 virus 07/03/2021 COVID-19 07/03/2021 Vitamin D deficiency 03/04/2020 Spinal stenosis of lumbar re gion with neurogenic claudication 02/20/2020 Overview (02/20/2020): Added automatically from request for surgery [id number] Assessment & Plan (12/11/2021 6:40 PM CLINICAL DATA ASSISTANT): S/p L5-S1 decompression, L5-S1 TLIF, L4-S1 PSF by Dr. Drake on 12/09. Defer management to orthopedic primary team. Lumbar disc herniation with radiculopathy 2019 Overview (02/20/2020): Added automatically from request for surgery [id number] Near syncope Delayed emergence from general anesthesia Immunizations Immunization Administration Dates Next Due Influenza, Unspecified 10/31/2014 Tdap 06/02/2022 Social History Tobacco Use Types Packs/Day Years Used Date Smoking Tobacco: Never Smokeless Tobacco: Never Tobacco Cessation:Counseling Given: Not Answered Alcohol Use Standard Drinks/Week Comments Not Currently 0 (1 standard drink = 0.6 oz pur e alcohol) Social Connection and Isolat ion Panel [NHANES] Answer Date Recorded In a typical week, how many times do you talk on the phone with family, friends, or neighbors? More than three times a week 11/16/2023 How often do you get togethe r with friends or relatives? More than three times a week 11/16/2023 How often do you attend chur ch or mormonism services? More than 4 times per year 11/16/2023 Do you belong to any clubs o r organizations such as episcopalian groups, unions, fraternal or athletic groups, or school groups? No 11/16/2023 How often do you attend meet ings of the clubs or organizations you belong to? Never 11/16/2023 Are you , , di vorced, , never , or living with a partner? Never 11/16/2023 AUDIT-C Answer Date Recorded Q1: How often do you have a drink containing alcohol? Never 01/16/2025 Q2: How many drinks containi ng alcohol do you have on a typical day when you are drinking? Patient does not drink Q3: How often do you have si x or more drinks on one occasion? Never 01/16/2025 Overall Financial Resource Strain (CARDIA) Answe r Date Recorded How hard is it for you to pa y for the very basics like food, housing, medical care, and heating? Not hard at all 11/16/2023 PHQ-2 Answer Date Recorded PHQ-2 Total Score 0 11/16/2023 Hunger Vital Sign Answer Date Recorded Within the past 12 months, y ou worried that your food would run out before you got the money to buy more. Never true 01/09/20 24 Within the past 12 months, t he food you bought just didn't last and you didn't have money to get more. Never true 01/09/2024 PRAPARE - Transportation Answer Date Re corded In the past 12 months, has l ack of transportation kept you from medical appointments or from getting medications? No 10/31 In the past 12 months, has l ack of transportation kept you from meetings, work, or from getting things needed for daily living? No 11/16/2023 Housing Stability Vital Sign Answer Artur e Recorded In the last 12 months, was t here a time when you were not able to pay the mortgage or rent on time? No 11/16/2023 In the last 12 months, how many places have you lived? 1 11/16/2023 In the last 12 months, was t here a time when you did not have a steady place to sleep or slept in a skilled nursing (including now)? No 11/16/2023 Personal Safety Answer Date Recorded Have you ever been in or are you currently in a harmful physical or emotional relationship or is someone making you feel afraid or unsafe? Denies 11/16/2023 Sex and Gender Information Value Date Recorded Sex Assigned at Not on file Legal Sex Male 7:39 PM CLINICAL DATA ASSISTANT Gender Identity Not on file Sexual Orientation Not on file Last Filed Vital Signs Vital Sign Reading Time Taken Comments Blood Pressure 129/60 01/16/2025 2:36 PM CDT Pulse 84 01/16/2025 2:36 PM CDT Temperature 36.5 C (97.7 F) 11/28/2024 1:36 PM CLINICAL DATA ASSISTANT Respiratory Rate 16 11/28/2024 3:21 PM CLINICAL DATA ASSISTANT Oxygen Saturation 97% 01/16/2025 2:36 PM CDT Inhaled Oxygen Concentration - - Weight 115.7 kg (255 lb) 01/16/2025 2:36 PM CDT Height 180.3 cm (5' 11 ) 01/16/2025 2:36 PM CDT Body Mass Index 35.57 01/16/2025 2:36 PM CDT Plan of Treatment Upcoming Encounters Date Type Department Care Team (Latest Contact Info) Description 02/06/2025 11:45 AM CDT Hospital Encounter [facility] Operating Room [address] [place] [phone] Forrest Regan MD [address] [facility] 6A/6B[address]12A [place] [address] 02/06/2025 11:45 AM CDT Anesthesia Event [facility] Operating Room [address] [place] [phone] Princess Purvis NP [facility] [address] [place] [phone] 02/06/2025 11:45 AM CDT - 02/06/2025 6:45 PM CDT Surgery [facility] Operating Room [address] [place] [phone] Forrest Regan MD [address] [facility] [address] [place] [address] CELLSAVER! L4-S1 Hardware Removal; L2-4 Posterior Spinal Decompressive Laminectomy/Foraminot caio; L2-S1/Ilium Posterior Spinal Fusion Scheduled Procedures Name Priority Associated Diagnoses Date/Ti me FUSION LUMBAR - POSTERIOR - 4+ LEVELS Spinal stenosis, lumbar region, with neurogenic claudication Lumbar radiculopathy 02/06/2025 11:45 AM CDT Goals Goal Patient Goal Type Associated Problems Recent Progress Patient-Stated? Author CCM Chronic Pain Care Plan Chronic Care Management Worsening( 1:45 PM CLINICAL DATA ASSISTANT) Marjorie Blunt, RN Note: Problem: Chronic Pain Goals: 1. Minimize further functional decline 2. Maximize quality of life 3. Control pain Strategies: - Activity/exercise program recommendation - Conservative stepwise pain medicine strategy with multi-disciplinary approach - Recommend healthy lifestyle strategies and compensatory methods as needed Medical Devices Implanted Type Area Tiltrotor Crew Chief Device Identifier Shelf Expiration Date Model / Serial / Lot [employer] S-Icd A219-07/19/2024 Implanted: 024 (Quantity not on file) ICD Chest Wall [employer] C.R.M. A219 / [id number] / [employer] Rv Lead 3501-07/19/2024 Implanted: 024 by David Maki MD (Quantity not on file) Lead Chest Wall [employer] C.R.M. 3501 / [id number] / Integra Lifesciences Shelley [id number] Duragen Plus 2x2in Patch Resorbable Suturable Cranial Dura Graft - [id number] Implanted:Qty: 1 on 03/05/2020 by Yamilex Drake MD at [facility] Integra Lif[employer]iences Shelley [id number] 09/29/2022 [id number] / / [id number] [facility] 1067.4645 Creo Amp 6.5mm 45mm Cannulated Modular Spine Screw Bone - [id number] Implanted:Qty: 1 on 12/09/2021 by Yamilex Drake MD at [facility] N/A: Spine Lumbar [employer] 1067.4645 / / Creo Screw 6.5x35 Implanted:Qty: 1 on 12/09/2021 by Yamilex Drake MD at [facility] N/A: Spine Lumbar GLOBUS 1067.4635 / / Medtronic Sofamor Danek [id number] Infuse 14mm 23mm Absorbable Sponge Sterile Water Syringe Needle - [id number] Implanted:Qty: 1 on 12/09/2021 by Yamilex Drake MD at [facility] N/A: Spine Lumbar Medtronic Inc 07/01/2023 [id number] / / [id number] Ac[employer] Inc [id number] - [id number] - [id number] Implanted:Qty: 1 on 12/09/2021 by Yamilex Drake MD at [facility] N/A: Spine Lumbar [employer] Inc 03/18/2026-[id number] / [id number] / Sea Spine Inc Integra Accell Evo3 Putty Graft 2.5cc Bone Demineralized Bone - [id number] - [id number] Implanted:Qty: 1 on 12/09/2021 by Yamilex Drake MD at [facility] N/A: Spine Lumbar Sea Spine Inc 07/28/2022 / [id number] / [id number] Globus Implanted:Qty: 1 on 12/09/2021 by Yamilex Drake MD at [facility] N/A: Spine Lumbar GLOBUS 10/05/2031 [id number] / / [id number] [employer] 1134.001 Creo Spinal Cap Locking Nonsterile Mis - [id number] Implanted:Qty: 6 on 12/09/2021 by Yamilex Drake MD at [facility] N/A: Spine Lumbar [employer] 1134.0010 / / [employer] 7146.011 Creo Amp Polyaxial Thread Tulip Spine Transfacet Screw Bone Cocr - [id number] Implanted:Qty: 6 on 12/09/2021 by Yamilex Drake MD at [facility] N/A: Spine Lumbar [employer] 7146.0110 / / [employer] 1067.4660 Creo Amp 6.5mm 60mm Modular Cannulated Spine Screw Bone - [id number] Implanted:Qty: 2 on 12/09/2021 by Yamilex Drake MD at [facility] N/A: Spine Lumbar [employer] 1067.4660 / / [employer] 1067.4655 Creo Amp 6.5mm 55mm Cannulated Modular Spine Screw Bone - [id number] Implanted:Qty: 3 on 12/09/2021 by Yamilex Drake MD at [facility] N/A: Spine Lumbar [employer] 1067.4655 / / Lifenet Vivigen Allograft Graft 10 Cc Bone Cortical Cancellous Demineral Bl-1500-003 - [id number] - [id number] Implanted:Qty: 1 on 11/15/2023 by Forrest Regan MD at [facility] N/A: Spine Lumbar Lif[employer]et [id number] 01/07/2024 -1500-003 / [id number] / Musculoskeletal Transplant Od10+ Mm L30 Mm Allograft Frozen Graft Bone Femoral Shaft 255855 - [id number] - [id number] Implanted:Qty: 1 on 11/15/2023 by Forrest Regan MD at [facility] N/A: Spine Lumbar Musculoskeletal Transplant [id number] 11/18/2027 [id number] / [id number] / Medtronic Inc Screw Spinal Anterior Cervical Solid Pyramid 6.5x35mm Titanium [id number] - [id number] Implanted:Qty: 2 on 11/15/2023 by Forrest Regan MD at [facility] N/A: Spine Lumbar Medtronic Inc [id number] / / Medtronic Inc 17mm 17mm Washer Spinal Titanium Bone Graft [id number] - [id number] Implanted:Qty: 2 on 11/15/2023 by Forrest Regan MD at [facility] N/A: Spine Lumbar Medtronic Inc [id number] / / Medtronic Inc Solera Cd Horizon 7.5mm 60mm Multiaxial Spine Screw Bone Cocr [id number] - [id number] Implanted:Qty: 5 on 11/15/2023 by Forrest Regan MD at [facility] N/A: Spine Lumbar Medtronic Inc [id number] / / Medtronic Inc Solera Cd Horizon 7.5mm 55mm Multiaxial Spine Screw Bone Cocr [id number] - [id number] Implanted:Qty: 1 on 11/15/2023 by Forrest Regan MD at [facility] N/A: Spine Lumbar Medtronic Inc [id number] / / Medtronic Inc Cd Horizon Break Off Spinal Screw Set Titanium Nonsterile 5.5 Mm [id number] - [id number] Implanted:Qty: 6 on 11/15/2023 by Forrest Regan MD at [facility] N/A: Spine Lumbar Medtronic Inc [id number] / / Medtronic Inc 5.5mm 60mm Curve David Spinal Nonsterile [id number] - [id number] Implanted:Qty: 1 on 11/15/2023 by Forrest Regan MD at [facility] N/A: Spine Lumbar Medtronic Inc [id number] / / Medtronic Inc 5.5mm 55mm Curve David Spinal Nonsterile [id number] - [id number] Implanted:Qty: 1 on 11/15/2023 by Forrest Regan MD at [facility] N/A: Spine Lumbar Medtronic Inc [id number] / / Procedures Procedure Name Priority Date/Time Associated Diagnosis Comments CT LUMBAR SPINE WO CONTRAST Schedule Routine, Read Routine (OP Routine) 01/16/2025 3:57 PM CDT Fusion of spine of lumbar region 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, unspecified fracture morphology, subsequent encounter Spinal stenosis of lumbar region, unspecified whether neurogenic claudication present Lumbar radiculopathy DIFFERENTIAL AUTO Routine 01/16/2025 3:3 0 PM CDT Spinal stenosis, lumbar region, with neurogenic claudication Lumbar radiculopathy CBC WITH AUTO DIFFERENTIAL Routine 01/16/2025 3:30 PM CDT Spinal stenosis, lumbar region, with neurogenic claudication Lumbar radiculopathy HEMOGLOBIN A1C Routine 01/16/2025 3:30 PM CDT Spinal stenosis, lumbar region, with neurogenic claudication Lumbar radiculopathy ERYTHROCYTE SEDIMENTATION RATE Routine 01/16/2025 3:30 PM CDT Spinal stenosis, lumbar region, with neurogenic claudication Lumbar radiculopathy EGFR Routine 01/16/2025 3:29 PM CDT Spinal stenosis, lumbar region, with neurogenic claudication Lumbar radiculopathy COMPREHENSIVE METABOLIC PANEL Routine 01/16/2025 3:29 PM CDT Spinal stenosis, lumbar region, with neurogenic claudication Lumbar radiculopathy ALBUMIN Routine 01/16/2025 3:29 PM CDT Spinal stenosis, lumbar region, with neurogenic claudication Lumbar radiculopathy CRP (ACUTE PHASE) Routine 01/16/2025 3:2 9 PM CDT Spinal stenosis, lumbar region, with neurogenic claudication Lumbar radiculopathy VITAMIN D 25 HYDROXY Routine 01/16/2025 3:29 PM CDT Spinal stenosis, lumbar region, with neurogenic claudication Lumbar radiculopathy TYPE AND SCREEN Routine 01/16/2025 3:29 PM CDT Preop testing NICOTINE METABOLITE SCREEN, URINE Routine 01/16/2025 2:46 PM CDT URINALYSIS AND REFLEX TO MICROSCOPIC AND CULTURE Routine 01/16/2025 2:46 PM CDT Spinal stenosis, lumbar region, with neurogenic claudication Lumbar radiculopathy XR LUMBAR SPINE AP LAT FLEX EX Schedule Routine, Read Routine (OP Routine) 01/07/2025 2:39 PM CDT Fusion of spine of lumbar region PAIN MGMT IMAGING LUMBAR/SACRAL SELECTIVE NERVE ROOT INJ (TFE) RIGHT Schedule Routine, Read Routine (OP Routine) 11/28/2024 3:18 PM CLINICAL DATA ASSISTANT Lumbar radiculopathy TRANSTHORACIC ECHO (TTE) COMPLETE W DOPPLER/CF Routine 11/26/2024 11:05 AM CLINICAL DATA ASSISTANT CARDIOLOGY DOCUMENT SCAN Routine 11/13/2024 3:09 PM CLINICAL DATA ASSISTANT from Last 3 Months Results * CT Lumbar Spine WO Contrast (01/16/2025 3:57 PM CDT) Anatomical Region Laterality Modality Spine N/A Computed Tomogra phy 01/16/2025 4:13 PM CDT Impressions 01/16/2025 4:46 PM CDT Posterior and anterior lumbar interbody fusion with multilevel degenerative changes as detailed above. Dictated by: Queenie Uriarte D.O. The radiology attending physician has personally reviewed this study, and had reviewed and/or edited this written report and agrees with it. Electronically signed by: Lindsay Shea MD Narrative 01/16/2025 4:46 PM CDT EXAMINATION: CT of the lumbar spine without contrast HISTORY: Low back pain, symptoms persist with > 6 wks treatment Lumbar radiculopathy, symptoms persist with > 6 wks treatment evaluation of prior fusion, pre-op imaging TECHNIQUE: CT of the lumbar spine was performed according to the standard protocol without intravenous contrast. COMPARISON: Lumbar spine radiographs 01/07/2025 and MRI lumbar spine 10/05/2024 FINDINGS: Anterior and posterior fusion from L4 to S1. Intervertebral disc spacers at L4-L5 and L5-S1. There is straightening of the lumbar spine. Chronic wedge compression fracture of L3. Chronic fracture of L2-L3 osteophyte. Multilevel intervertebral disc degeneration without significant height loss There is no soft tissue abnormality. Partially visualized diverticulosis. Vascular calcification versus nephrolithiasis in the right kidney. Fatty atrophy of the posterior paraspinal musculature. L1-L2: The disc is normal in configuration. There is moderate bilateral facet arthropathy. There is no neuroforaminal stenosis. There is no spinal canal stenosis. L2-L3: Mild diffuse disc bulge There is moderate bilateral facet arthropathy. There is no neuroforaminal stenosis. There is no spinal canal stenosis. L3-L4: Moderate diffuse disc bulge There is mild bilateral facet arthropathy. There is mild neuroforaminal stenosis. There is no spinal canal stenosis. L4-L5: Fused level. There is moderate bilateral facet arthropathy. There is mild bilateral neuroforaminal stenosis. There is mild spinal canal stenosis. L5-S1: Fused level. Right partial facetectomy. Moderate bilateral facet arthropathy. Moderate right and mild left neural foraminal stenosis. No spinal canal stenosis. Procedure Note Lindsay Shea MD PhD - 01/16/2025 EXAMINATION: CT of the lumbar spine without contrast HISTORY: Low back pain, symptoms persist with > 6 wks treatment Lumbar radiculopathy, symptoms persist with > 6 wks treatment evaluation of prior fusion, pre-op imaging TECHNIQUE: CT of the lumbar spine was performed according to the standard protocol without intravenous contrast. COMPARISON: Lumbar spine radiographs 01/07/2025 and MRI lumbar spine 10/05/2024 FINDINGS: Anterior and posterior fusion from L4 to S1. Intervertebral disc spacers at L4-L5 and L5-S1. There is straightening of the lumbar spine. Chronic wedge compression fracture of L3. Chronic fracture of L2-L3 osteophyte. Multilevel intervertebral disc degeneration without significant height loss There is no soft tissue abnormality. Partially visualized diverticulosis. Vascular calcification versus nephrolithiasis in the right kidney. Fatty atrophy of the posterior paraspinal musculature. L1-L2: The disc is normal in configuration. There is moderate bilateral facet arthropathy. There is no neuroforaminal stenosis. There is no spinal canal stenosis. L2-L3: Mild diffuse disc bulge There is moderate bilateral facet arthropathy. There is no neuroforaminal stenosis. There is no spinal canal stenosis. L3-L4: Moderate diffuse disc bulge There is mild bilateral facet arthropathy. There is mild neuroforaminal stenosis. There is no spinal canal stenosis. L4-L5: Fused level. There is moderate bilateral facet arthropathy. There is mild bilateral neuroforaminal stenosis. There is mild spinal canal stenosis. L5-S1: Fused level. Right partial facetectomy. Moderate bilateral facet arthropathy. Moderate right and mild left neural foraminal stenosis. No spinal canal stenosis. IMPRESSION: Posterior and anterior lumbar interbody fusion with multilevel degenerative changes as detailed above. Dictated by: Queenie Alnazal, D.O. The radiology attending physician has personally reviewed this study, and had reviewed and/or edited this written report and agrees with it. Electronically signed by: Lindsay Shea MD us Forrest Regan MD IMG CT PROCEDURES Final Re sult * Differential, auto (01/16/2025 3:30 PM CDT) Neutrophil abs 4.2 1.5 - 6.5 K/cumm Imm gran abs 0.0 0.0 - 0.1 K/cumm [facility] Lymphocyte abs 1.5 0.8 - 3.3 K/cumm [facility] Monocyte abs 0.5 0.2 - 0.8 K/cumm [facility] Eosinophil abs 0.2 0.0 - 0.5 K/cumm [facility] Basophil abs 0.0 0.0 - 0.1 K/cumm [facility] Neutrophil pct 65.1 % [facility] Comment: Interpretive Data Percent cell count reference ranges are not reported, since discordance with absolute values may lead to misinterpretation of CBC data. Current Interpretive Data was last revised on 2018. Imm gran pct 0.5 % [facility] Comment: Interpretive Data Percent cell count reference ranges are not reported, since discordance with absolute values may lead to misinterpretation of CBC data. Current Interpretive Data was last revised on 2018. Lymphocyte pct 23.4 % [facility] Comment: Interpretive Data Percent cell count reference ranges are not reported, since discordance with absolute values may lead to misinterpretation of CBC data. Current Interpretive Data was last revised on 2018. Monocyte pct 8.2 % [facility] Comment: Interpretive Data Percent cell count reference ranges are not reported, since discordance with absolute values may lead to misinterpretation of CBC data. Current Interpretive Data was last revised on 2018. Eosinophil pct 2.3 % [facility] Comment: Interpretive Data Percent cell count reference ranges are not reported, since discordance with absolute values may lead to misinterpretation of CBC data. Current Interpretive Data was last revised on 2018. Basophil pct 0.5 % [facility] Comment: Interpretive Data Percent cell count reference ranges are not reported, since discordance with absolute values may lead to misinterpretation of CBC data. Current Interpretive Data was last revised on 2018. Blood 01/16/2025 3:30 PM CDT 01/16/2025 3:30 PM CDT Forrest Regan MD LAB BLOOD ORDERABLES Final Result Performing Organization Address City/[facility]/ZIP Co de Phone Number [facility] [address] [employer] [place], [place] [id number] * (ABNORMAL) CBC with auto differential (01/16/2025 3:30 PM CDT) [facility] WBC 6.5 3.8 - 9.9 K/cumm Hgb 14.2 13.0 - 17.5 g/dL [facility] Hct 45.2 38.9 - 50.3 % [facility] Plt 223 150 - 400 K/cumm [facility] MPV 9.8 9.1 - 12.3 fL [facility] RBC 4.95 4.30 - 5.80 M/cumm [facility] MCV 91.3 81.3 - 96.4 fL [facility] MCH 28.7 27.1 - 33.3 pg [facility] MCHC 31.4(L) 32.3 - 35.7 g/dL [facility] RDW CV 13.3 11.1 - 14.9 % [facility] RDW SD 44.4 35.7 - 48.1 fL [facility] NRBC abs 0.00 0.00 - 0.01 K/cumm [facility] Blood 01/16/2025 3:30 PM CDT 01/16/2025 3:30 PM CDT Forrest Regan MD LAB BLOOD ORDERABLES Final Result Performing Organization Address City/[facility]/ZIP Co de Phone Number [facility] [address] Department of [employer] [place], [place] [id number] * Erythrocyte sedimentation rate (01/16/2025 3:30 PM CDT) [facility] Erythrocyte sedimentation rate 8 1 - 20 mm/hr Blood 01/16/2025 3:30 PM CDT 01/16/2025 3:30 PM CDT Forrest Regan MD LAB BLOOD ORDERABLES Final Result Performing Organization Address [facility] de Phone Number [facility] [address] [facility] [place] [place] [address] * (ABNORMAL) Hemoglobin A1c (01/16/2025 3:30 PM CDT) [facility] Hgb A1C 5.7(H) 4.0 - 5.6 % Estimated Average Glucose 117 mg/dL [facility] Comment: The ADA recommends reporting an estimated Average Glucose (eAG) with all Hemoglobin A1c results using the equation derived from a study of 507 normal and diabetic adults. Minority populations were underrepresented and children were not included. (Diabetes Care 31:5479-6692, 2008). The eAG is not equivalent to a fasting glucose. Blood 01/16/2025 3:30 PM CDT 01/16/2025 3:30 PM CDT Forrest Regan MD LAB BLOOD ORDERABLES Final Result Performing Organization Address [facility] de Phone Number [facility] [address] [facility] [place] [place] [address] * eGFR (01/16/2025 3:29 PM CDT) [facility] eGFR 87 >=60 mL/min/1. 73 m2 Comment: Interpretive Data Reference Interval Normal >/= 90 mL/min/1.73m2 Mildly decreased* 60 - 89 mL/min/1.73m2 Mildly to moderately decreased 45 - 59 mL/min/1.73m2 Moderately to severely decreased 30 - 44 mL/min/1.73m2 Severely decreased 15 - 29 mL/min/1.73m2 Kidney Failure < 15 mL/min/1.73m2 *Relative to young adult level Estimated glomerular filtration rate is determined by the 2020 CKD-EPI equation recommended by the National Kidney Foundation (A Unifying Approach to GFR Estimation: Recommendations of the NKF-ASK Task Force on Reassessing the Inclusion of Race in Diagnosing Kidney Disease, JASN 2020). The CKD-EPI equation should not be used for patients with unstable renal function and has not been validated in children and those over 70. Current interpretive data was last reviewed 2021. Blood 01/16/2025 3:29 PM CDT 01/16/2025 3:29 PM CDT Forrest Regan MD LAB BLOOD ORDERABLES Final Result [facility] [address] Department [employer] [place], [place] [id number] * (ABNORMAL) Vitamin D 25 hydroxy (01/16/2025 3:29 PM CDT) Vitamin D 25-OH 20(L) 30 - 80 ng/mL Blood 01/16/2025 3:29 PM CDT 01/16/2025 3:29 PM CDT Forrest Regan MD LAB BLOOD ORDERABLES Final Result [facility] [address] [place] [place] [address] * Type and screen (01/16/2025 3:29 PM CDT) ABO Rh O Negative Lorenza, indirect Negative [facility] Blood 01/16/2025 3:29 PM CDT 01/16/2025 3:34 PM CDT Narrative [facility] - 01/16/2025 4:18 PM CDT Is this test being ordered in advance for a procedure?->Yes Expected date of procedure:->02/06/25 Has the patient been transfused in the past 3 months?->No Princess Purvis NP LAB BLOOD BANK TEST ORD ERABLES Final Result Performing Organization Address City/[facility] Co de Phone Number [facility] [address] [place] [place] [address] * CRP (acute phase) (01/16/2025 3:29 PM CDT) [facility] CRP 3.4 <=10.0 mg/L Blood 01/16/2025 3:29 PM CDT 01/16/2025 3:29 PM CDT Forrest Regan MD LAB BLOOD ORDERABLES Final Result Performing Organization Address [facility] Co de Phone Number [facility] [address] [place] [place] [address] * Albumin (01/16/2025 3:29 PM CDT) [facility] Albumin 4.0 3.5 - 5.0 g/dL Blood 01/16/2025 3:29 PM CDT 01/16/2025 3:29 PM CDT Forrest Regan MD LAB BLOOD ORDERABLES Final Result Performing Organization Address [facility] Co de Phone Number [facility] [address] [place] [address] * Comprehensive metabolic panel (01/16/2025 3:29 PM CDT) [facility] Sodium 135 135 - 145 mmol/L Potassium, pl 4.1 3.3 - 4.9 mmol/L [facility] Chloride 99 97 - 110 mmol/L [facility] CO2 24 22 - 32 mmol/L [facility] Anion gap 12 2 - 15 mmol/L [facility] BUN 17 6 - 25 mg/dL [facility] Creatinine 1.02 0.80 - 1.30 mg/dL [facility] Glucose 86 70 - 199 mg/dL [facility] Comment: Interpretive Data Fasting glucose >/= 126 mg/dl is diagnostic for diabetes. Fasting is defined as no caloric intake for at least 8 hours. Fasting glucose between 100 mg/dl to 125 mg/dl is diagnostic of prediabetes. In a patient with classic symptoms of hyperglycemia or hyperglycemic crisis, a random glucose >/= 200 mg/dl is diagnostic for diabetes. In the absence of unequivocal hyperglycemia, results should be confirmed by repeat testing. The classification and Diagnosis of Diabetes Diabetes Care 2021; 46: S19-S40. Current interpretive data was last revised 2022. Calcium 9.0 8.5 - 10.3 mg/dL [facility] Bilirubin, total 0.8 0.1 - 1.2 mg/dL [facility] Protein, pl 7.5 6.5 - 8.5 g/dL [facility] Albumin 4.0 3.5 - 5.0 g/dL [facility] Alk phos 60 40 - 130 Units/L [facility] ALT 30 7 - 55 Units/L [facility] AST 26 10 - 50 Units/L [facility] Blood 01/16/2025 3:29 PM CDT 01/16/2025 3:29 PM CDT us Forrest Regan MD LAB BLOOD ORDERABLES Final Result [facility] [address] [place] [address] * Urinalysis reflex to microscopic and culture Urine, clean voided (01/16/2025 2:46 PM CDT) Color, ur Yellow Yellow Clarity, ur Clear Clear [facility] Specific gravity, ur 1.024 1.003 - 1.030 [facility] pH, urine 6.5 [facility] Comment: Interpretive Data U rine pH is affected by diet, medications, systemic acid-base disturbances, and renal tubular function. pH may affect urinary stone formation. For example, urine pH below 6.0 may help reduce the tendency for calcium phosphate stones and pH greater than 6.0 may reduce the tendency for uric acid stone formation. Source: [facility] [employer] Current Interpretive Data was last revised on 2017 Protein, ur ql Negative Negative [facility] Glucose, ur ql Negative Negative [facility] Ketones, ur Negative Negative [facility] Bilirubin, ur Negative Negative [facility] Blood, ur Negative Negative [facility] Urobilinogen, ur <2.0 <2.0 mg/dL [facility] Nitrite, ur Negative Negative [facility] Leukocyte esterase, ur Negative Negative [facility] UA reflex comment Reflex conditions for microscopic UA and culture not met. [facility] Urine, clean voided 01/16/2025 2:46 PM CDT 01/16/2025 7:09 PM CDT Forrest Regan MD LAB MICROBIOLOGY - GENERAL ORDERABLES Final Result Performing Organization Address City/[facility] Co de Phone Number [facility] [address] [place] [address] * Nicotine metabolite screen, urine (01/16/2025 2:46 PM CDT) Nicotine, ur <5.0 <5.0 ng/mL [place] [facility] Cotinine, ur <5.0 <5.0 ng/mL [facility] Anabasine ur <2.0 <2.0 ng/mL [facility] Comment: ADDITIONAL INFORMATION This test was developed and its performance characteristics determined by [facility] in a manner consistent with CLIA requirements. This test has not been cleared or approved by the U.S. Food and Drug Administration. Test Performed by: [facility] - [address] [address] [employer]: Sybil Escobar Ph.D.; CLIA# [id number] Nornicotine, ur <2.0 <2.0 ng/mL [facility] Urine 01/16/2025 2:46 PM CDT 01/16/2025 9:57 PM CDT Forrest Regan MD LAB URINE ORDERABLES Final Result Performing Organization Address City/[facility] Co de Phone Number [facility] [address] [place] [address] [place] [facility] * XR Spine Lumbar Ap Lat Flex Ext min 4 Views (01/07/2025 2:39 PM CDT) Anatomical Region Laterality Modality L-spine N/A Computed Radiogr aphy 01/07/2025 4:10 PM CDT Impressions 01/07/2025 4:10 PM CDT 1. Unchanged combined posterior and anterior fusion from L4 to S1. 2. Unchanged chronic L3 vertebral body compression fracture. Electronically signed by: Arnie See D.O. Narrative 01/07/2025 4:10 PM CDT EXAMINATION: XR SPINE LUMBAR AP LAT FLEX EXT MIN 4 VIEWS HISTORY: pain COMPARISON: 05/07/2024 FINDINGS: Unchanged posterior decompression and instrumented fusion from L4 to S1 with combined anterior fusion at these levels. The hardware is intact and the lumbar spine alignment is unchanged. No abnormal motion on flexion or extension. Unchanged chronic L3 vertebral body compression fracture. No new compression fractures. Mild degenerative disc disease at the unfused segments. Partially visualized electronic device with a lead in the left upper abdomen. Procedure Note Arnie See, DO - 01/07/2025 EXAMINATION: XR SPINE LUMBAR AP LAT FLEX EXT MIN 4 VIEWS HISTORY: pain COMPARISON: 05/07/2024 FINDINGS: Unchanged posterior decompression and instrumented fusion from L4 to S1 with combined anterior fusion at these levels. The hardware is intact and the lumbar spine alignment is unchanged. No abnormal motion on flexion or extension. Unchanged chronic L3 vertebral body compression fracture. No new compression fractures. Mild degenerative disc disease at the unfused segments. Partially visualized electronic device with a lead in the left upper abdomen. IMPRESSION: 1. Unchanged combined posterior and anterior fusion from L4 to S1. 2. Unchanged chronic L3 vertebral body compression fracture. Electronically signed by: Arnie See D.O. us Forrest Regan MD IMG XR PROCEDURES Final Re sult * Imaging Lumbar/Sacral Selective Nerve Root INJ (TFE) Right ([id number]) (11/28/2024 3:18 PM CLINICAL DATA ASSISTANT) Narrative [facility] - 11/28/2024 3:18 PM CLINICAL DATA ASSISTANT The images from this study are not interpreted by Radiology. Please refer to the physician's procedure / OR operative note. us Jojo Oviedo MD IMG PAIN MGMT PROCEDURES F inal Result [facility] * Transthoracic Echo (TTE) Complete W Doppler/CF (11/26/2024 11:05 AM CLINICAL DATA ASSISTANT) Anatomical Region Laterality Modality Ultrasound us Farzad Anthony MD CV ECHO PROCEDURES Final R esult * Cardiology Document Scan (11/13/2024 3:09 PM CLINICAL DATA ASSISTANT) Anatomical Region Laterality Modality Other Farzad Anthony MD CV CARDIAC SERVICES PROCED URES Final Result from Last 3 Months Insurance [employer] [facility] [employer] [facility] [employer] [facility] Advance Directives For more information, please contact: [phone] * Full Code (Latest Code Status on File) Date Activated Date Inactivated Comments 11/15/2023 9:54 PM 11/18/2023 9:58 PM * Full Code Date Activated Date Inactivated Comments 11/15/2023 9:38 PM 11/15/2023 9:54 PM * Full Code Date Activated Date Inactivated Comments 10/24/2023 12:49 AM 10/25/2023 7:19 PM * Full Code Date Activated Date Inactivated Comments 12/09/2021 6:52 PM 12/12/2021 4:56 PM * Full Code Date Activated Date Inactivated Comments 07/03/2021 1:44 PM 07/10/2021 1:20 AM Care Teams [employer] Relationship Specialty Start Date End Date Rome Jacobson MD [address] [address] PCP - General Family Medicine 01/07/25 Filipe Briggs MD [address] [place] [address] [address] [facility] [address] Referring Physician Cardiovascular Disease 01/17/25
--- OUTSIDE RECORDS SUMMARY | 2025-01-25 16:02 | XMS_ITS | Data Portability ---
Author Organization [facility], Main Office Address [address] [place] [address] Assessment No assessment recorded. Plan of Treatment Reminders Order Date Submit Date Provider Last Modified By Organization Details Last Modified Time Details Appointments None recorded. Lab HbA1c (hemoglobin A1c), blood 2022 023 [email or web address] [facility], [address], [address], [place], [address], 4 08:47:44 CMP, serum or plasma 2022 023 [email or web address] [facility], [address], [address], [place], [address], 4 08:47:44 lipid panel, serum 2022 023 [email or web address] [facility], [address], [address], [place], [address], 4 08:47:43 Referral EGD referral 2022 023 [email or web address] Laith Gaviria MD, [address], [address], [place], [address], 3 11:04:31 Procedures lexiscan cardiolite stress test (PROC) - Approved [id number] 01/18/2023- 03/21/20232022 023 [facility], [address] [place] [address] [address], [place], [address], 3 17:35:03 colonoscopy screening (PROC) 2022 023 AMPARO Gaviria MD, [address] [facility], [address], [place], [address], 3 13:42:42 Surgeries None recorded. Imaging None recorded. Medication Orders doxycycline hyclate 100 mg capsule 2022 023 [email or web address] [id number], [address] [facility], [place], [address], 3 14:22:15 Patient TargetsNo targets recorded. Patient Instructions Encounter Date Encounter Id Patient Instructions Last Modified By Organization Details Last Modified Time 01/12/2023 [id number] INFLUENZA VACCIN E TD/TDAP PNEUMONIA VACCINE SHINGLES PSA COLORECTAL SCREENING DEPRESSION SCREENING BMI NUTRITION PHYSICAL ACTIVITY ALCOHOL USE TOBACCO USE LUNG CANCER SCREENING SEXUALLY ACTIVE HEPATITIS C SCREENING GLUCOSE SCREENING LIPID SCREENING [email or web address] Not available 01/12/2023 16:35:54 Reason for Referral EGD Referral for Intermitten t dysphagia Referring Physician: Gudelia Sousa, Internal Medicine, Encounter Date: 01/12/2023 Results Created Date Observation Date Name Description Value Unit Range Abnormal Flag Note LastModifiedBy Organization Detail LastModifiedTime 10/09/20 21 10/09/2021 AMBIG ABBRE V LP DEFAU LT ambig abbrev LP default commen t A hand- writt en panel /prof ile was recei darin from your offic e. In accor dance with the [facility] Ambjordin uous Test Code Polic y dated April 2003, we have compl eted your order by using the close st curre ntly or forme rly recog nized AMA panel . We have yasmin ureña Lipid Panel , Test Code #30[address]. If this is not the testi ng you wishe d to recei ve on this speci men, pleas e conta ct the [facility] Clien t Inqui ry/Te chnic al Servi vanessa Depar tment to [place] fy the test order . We appre ciate your busin ess. Not Available [facility] ([facility]) [address] [facility], [place], [address], 10/14/2021 16:11:14 10/09/20 21 10/09/2021 ASHELY VARGASRE V CMP14 DEFAU LT ashely vargasrev CMP14 default commen t A hand- writt en panel /prof edward was recei darin from your offic e. In accor dance with the [facility] Ashely uous Test Code Polic y dated April 2003, we have compl eted your order by using the close st curre ntly or forme rly recog nized AMA panel . We have assig niranjan Compr ehens dwayne Metab olic Panel (14), Test Code #[address]. If this is not the testi ng you wishe d to recei ve on this speci men, pleas e conta ct the [facility] Clien t Inqui ry/Te chnic al Servi vanessa Depar tment to [place] fy the test order . We appre ciate your busin ess. Not Available [facility] ([facility]) [address] [facility] [place], [place], [address], 10/14/2021 16:11:13 10/09/20 21 10/11/2021 PROST ATE-S PECIF IC AG prostate specific Ag 1.5 NG/mL 0.0-4. 0 Tristan ECLIA metho dolog y. Accor ding to the Ameri can [employer]o g[employer] iatio n, Serum PSA shoul d decre ase and remai n at undet ectab le level s after radic al prost atect caio. The AUA defin es bioch emica l recur rence as an initi al PSA value 0.2 ng/mL or great er follo wed by a subse quent confi rmato ry PSA value 0.2 ng/mL or great er. Value s obtai niranjan with diffe rent assay metho ds or kits canno t be used inter reis eably . Resul ts canno t be inter prete d as absol chuloonawick evide nce of the prese nce or absen ce of gloria goodwin disea se. Not Available [facility] ([facility]) [address] [place], [address], 10/14/2021 16:11:13 10/09/20 21 10/11/2021 TSH TSH 1.910 uIU/m L 0.450- 4.500 Not Available [facility] ([facility]) [address] [place], [address], 10/14/2021 16:11:12 10/09/20 21 10/11/2021 THYRO XINE (T4) FREE, DIREC T T4,free(dire ct) 0.88 NG/dL 0.82-1 .77 Not Available [facility] ([facility]) [address] [place], [address], 10/14/2021 16:11:12 10/09/20 21 10/10/2021 HEMOG LOBIN A1C hemoglobin A1C 5.5 % 4.8-5. 6 Predi abete s: 5.7 - 6.4 Diabe omar: >6.4 Glyce javier contr ol for adult s with diabe oamr: <7.0 Not Available [facility] ([facility]) [address] [place], [address], 10/14/2021 16:11:11 10/09/20 21 10/11/2021 LIPID PANEL cholesterol, total 202 mg/dL 100-19 9 above high normal Not Available [facility] ([facility]) [address] [place], [address], 10/14/2021 16:11:11 10/09/20 21 10/11/2021 LIPID PANEL triglyceride s 198 mg/dL 0-149 above high normal Not Available [facility] ([facility]) [address] [place], [address], 10/14/2021 16:11:11 10/09/20 21 10/11/2021 LIPID PANEL HDL cholesterol 33 mg/dL >39 below low normal Not Available [facility] ([facility]) [address] [facility] [place], [place], [address], 10/14/2021 16:11:11 10/09/20 21 10/11/2021 LIPID PANEL VLDL cholesterol leobardo 36 mg/dL 5-40 Not Available [facility]) [address] [facility] [place], [address], 10/14/2021 16:11:11 10/09/20 21 10/11/2021 LIPID PANEL LDL chol calc ([facility]) 133 mg/dL 0-99 above high normal Not Available [facility] ([facility]) [address] [facility] [place], [place], [address], 10/14/2021 16:11:11 10/09/20 21 10/11/2021 LIPID PANEL comment: nonprofit fundraiser Not Available [facility] ([facility]) [address] [place], [address], 10/14/2021 16:11:11 10/09/20 21 10/10/2021 UA/M W/RFL X CULTU RE, ROUTI NE urinalysis reflex commen t This speci men has refle xed to a Urine Cultu re. Not Available [facility] ([facility]) [address] [place], [address], 10/14/2021 16:11:10 10/09/20 21 10/10/2021 UA/M W/RFL X CULTU RE, ROUTI NE specific gravity 1.019 1.005- 1.030 Not Available [facility] ([facility]) [address] [place], [address], 10/14/2021 16:11:10 10/09/20 21 10/10/2021 UA/M W/RFL X CULTU RE, ROUTI NE pH 5.5 5.0-7. 5 Not Available [facility] ([facility]) [address] [place], [address], 10/14/2021 16:11:10 10/09/20 21 10/10/2021 UA/M W/RFL X CULTU RE, ROUTI NE urine-color yellow yellow Not Available [facility]) [address] [facility] [place], [place], [address], 10/14/2021 16:11:10 10/09/20 21 10/10/2021 UA/M W/RFL X CULTU RE, ROUTI NE appearance clear clear Not Available [facility] ([facility]) [address] [facility] [place], [place], [address], 10/14/2021 16:11:10 10/09/20 21 10/10/2021 UA/M W/RFL X CULTU RE, ROUTI NE WBC esterase 2+ negati ve abnormal Not Available [facility] ([facility]) [address] [place], [address], 10/14/2021 16:11:10 10/09/20 21 10/10/2021 UA/M W/RFL X CULTU RE, ROUTI NE protein negati ve negati ve/tra ce Not Available [facility] ([facility]) [address] [facility] [place], [place], [address], 10/14/2021 16:11:10 10/09/20 21 10/10/2021 UA/M W/RFL X CULTU RE, ROUTI NE glucose negati ve negati ve Not Available [facility] ([facility]) [address] [place], [address], 10/14/2021 16:11:10 10/09/20 21 10/10/2021 UA/M W/RFL X CULTU RE, ROUTI NE ketones negati ve negati ve Not Available [facility] ([facility]) [address] [place], [address], 10/14/2021 16:11:10 10/09/20 21 10/10/2021 UA/M W/RFL X CULTU RE, ROUTI NE occult blood negati ve negati ve Not Available [facility] ([facility]) [address] [facility] [place], [place], [address], 10/14/2021 16:11:10 10/09/20 21 10/10/2021 UA/M W/RFL X CULTU RE, ROUTI NE bilirubin negati ve negati ve Not Available [facility] ([facility]) [address] [facility] [place], [place], [address], 10/14/2021 16:11:10 10/09/20 21 10/10/2021 UA/M W/RFL X CULTU RE, ROUTI NE urobilinogen ,semi-qn 0.2 mg/dL 0.2-1. 0 Not Available [facility] ([facility]) [address] [place], [address], 10/14/2021 16:11:10 10/09/20 21 10/10/2021 UA/M W/RFL X CULTU RE, ROUTI NE nitrite, urine positi ve negati ve abnormal Not Available [facility] ([facility]) [address] [place], [address], 10/14/2021 16:11:10 10/09/20 21 10/10/2021 UA/M W/RFL X CULTU RE, ROUTI NE microscopic examination see below: Micro scopi c was indic ated and was perfo rmed. Not Available [facility] ([facility]) [address] [place], [address], 10/14/2021 16:11:10 10/09/20 21 10/10/2021 UA/M W/RFL X CULTU RE, ROUTI NE WBC >30 /hpf 0 - 5 abnormal Not Available [facility] ([facility]) [address] [place], [address], 10/14/2021 16:11:10 10/09/20 21 10/10/2021 UA/M W/RFL X CULTU RE, ROUTI NE RBC none seen /hpf 0 - 2 Not Available [facility] ([facility]) [address] [facility] [place] [facility], [place], [address], 10/14/2021 16:11:10 10/09/20 21 10/10/2021 UA/M W/RFL X CULTU RE, ROUTI NE epithelial cells (non renal) 0-10 /hpf 0 - 10 Not Available [facility] ([facility]) [address] [facility] [place], [place], [address], 10/14/2021 16:11:10 10/09/20 21 10/10/2021 UA/M W/RFL X CULTU RE, ROUTI NE epithelial cells (renal) nonprofit fundraiser Not Available [facility] ([facility]) [address] [facility] [place], [place], [address], 10/14/2021 16:11:10 10/09/20 21 10/10/2021 UA/M W/RFL X CULTU RE, ROUTI NE casts none seen /lpf none seen Not Available [facility] ([facility]) [address] [facility] [place], [place], [address], 10/14/2021 16:11:10 10/09/20 21 10/10/2021 UA/M W/RFL X CULTU RE, ROUTI NE cast type nonprofit fundraiser Not Available [facility] ([facility]) [address] [facility] [place], [place], [address], 10/14/2021 16:11:10 10/09/20 21 10/10/2021 UA/M W/RFL X CULTU RE, ROUTI NE crystals nonprofit fundraiser Not Available [facility] ([facility]) [address] [facility] [address] [place], [place], [address], 10/14/2021 16:11:10 10/09/20 21 10/10/2021 UA/M W/RFL X CULTU RE, ROUTI NE crystal type nonprofit fundraiser Not Available [facility]) [address] [facility] [address] [place], [place], [address], 10/14/2021 16:11:10 10/09/20 21 10/10/2021 UA/M W/RFL X CULTWILDER CHANG mucus threads nonprofit fundraiser Not Available [facility] ([facility]) [address] [facility] [place], [place], [address], 10/14/2021 16:11:10 10/09/20 21 10/10/2021 UA/M W/RFL X CULTU REWILDER bacteria many none seen/f ew abnormal Not Available [facility] ([facility]) [address] [facility] [place], [place], [address], 10/14/2021 16:11:10 10/09/20 21 10/10/2021 UA/M W/RFL X CULTSharlene REWILDER yeast nonprofit fundraiser Not Available [facility] ([facility]) [address] [facility] [place], [place], [address], 10/14/2021 16:11:10 10/09/20 21 10/10/2021 UA/M W/RFL X CULTSharlene REWILDER trichomonas nonprofit fundraiser Not Available [facility]) [address] [facility] [place], [place], [address], 10/14/2021 16:11:10 10/09/20 21 10/10/2021 UA/M W/RFL X CULTWILDER CHANG comment nonprofit fundraiser Not Available [facility] ([facility]) [address] [facility] [place], [place], [address], 10/14/2021 16:11:10 10/09/20 21 10/10/2021 UA/M W/RFL X CULTSharlene REWILDER microscopic examination nonprofit fundraiser Not Available [facility] [address] [facility] [place], [place], [address], 10/14/2021 16:11:10 12/10/20 21 10/14/2021 UA/M W/RFL X CULTU RE, ROUTI NE urine culture, routine final report abnormal Not Available [facility] ([facility]) [address] [facility] [place], [place], [address], 10/14/2021 16:11:10 10/09/20 21 10/14/2021 UA/M W/RFL X CULTU RE, ROUTI NE result 1 klebsi chris pneumo niae abnormal Cefaz teodoro <=4 ug/mL Cefaz teodoro with an JAVIER <=16 predi cts susce ptibi lity to the oral agent s cefac kirk, cefdi mari, cefpo doxim e, cefpr ozil, cefur oxime , cepha lexin , and lorac arbef when used for thera py of uncom plica oliverio urina ry tract infec tions due to E. coli, Klebs iella pneum oniae , and Prote us mirab ilis. Great er than 100,0 00 colon y formi ng units per mL Not Available [facility] ([facility]) [address] [facility] [address] [facility], [place], [address], 10/14/2021 16:11:10 10/09/20 21 10/14/2021 UA/M W/RFL X CULTU RE, ROUTI NE antimicrobia l susceptibili ty commen t S = Susce ptibl e; I = Inter media te; R = Resis tant P = Posit dwayne; N = Negat dwayne MICS are expre ssed in micro grams per mL Antib iotic RSLT# 1 RSLT# 2 RSLT# 3 RSLT# 4 Amoxi cilli n/Cla vulan ic Acid S Ampic illin R Cefep ivonne S Ceftr iaxon e S Cefur oxime S Cipro floxa christina S Ertap enem S Genta micin S Imipe nem S Levof loxac in S Merop enem S Nitro furan toin I Piper acill in/Ta zobac stevenson S Tetra cycli ne S Tobra mycin S Trime thopr im/Vogt lfa S Not Available [facility] ([facility]) [address] [place], [address], 10/14/2021 16:11:10 10/09/20 21 10/11/2021 COMP. METAB OLIC PANEL (14) glucose 105 mg/dL 65-99 above high normal Not Available [facility] ([facility]) [address] [place], [address], 10/14/2021 16:11:10 10/09/20 21 10/11/2021 COMP. METAB OLIC PANEL (14) BUN 10 mg/dL 6-24 Not Available [facility] ([facility]) [address] [place], [address], 10/14/2021 16:11:10 10/09/20 21 10/11/2021 COMP. METAB OLIC PANEL (14) creatinine 1.09 mg/dL 0.76-1 .27 Not Available [facility] ([facility]) [address] [place], [address], 10/14/2021 16:11:10 10/09/20 21 10/11/2021 COMP. METAB OLIC PANEL (14) eGFR if nonafricn AM 78 mL/mi n/1.7 3 >59 Not Available [facility] ([facility]) [address] [place], [address], 10/14/2021 16:11:10 10/09/20 21 10/11/2021 COMP. METAB OLIC PANEL (14) eGFR if africn AM 90 mL/mi n/1.7 3 >59 In accor dance with recom menda tions from the NKF-A SN Task force , Pia is in the proce ss of updat ing its eGFR calcu latio n to the 2020 CKD-E PI creat inine equat ion that estim ates kidne y funct ion witho ut a race varia ble. Not Available [facility] ([facility]) [address] [place], [address], 10/14/2021 16:11:10 10/09/20 21 10/11/2021 COMP. METAB OLIC PANEL (14) BUN/creatini ne ratio 9 9-20 Not Available [facility] ([facility]) [address] [facility], [place], [address], 10/14/2021 16:11:10 10/09/20 21 10/11/2021 COMP. METAB OLIC PANEL (14) sodium 140 mmol/ L 134-14 4 Not Available [facility] ([facility]) [address] [facility] [place], [place], [address], 10/14/2021 16:11:10 10/09/20 21 10/11/2021 COMP. METAB OLIC PANEL (14) potassium 4.6 mmol/ L 3.5-5. 2 Not Available [facility] ([facility]) [address] [facility] [address] [facility], [place], [address], 10/14/2021 16:11:10 10/09/20 21 10/11/2021 COMP. METAB OLIC PANEL (14) chloride 102 mmol/ L 96-106 Not Available [facility] ([facility]) [address] [facility], [place], [address], 10/14/2021 16:11:10 10/09/20 21 10/11/2021 COMP. METAB OLIC PANEL (14) carbon dioxide, total 25 mmol/ L 20-29 Not Available [facility] ([facility]) [address] [facility] [place], [place], [address], 10/14/2021 16:11:10 10/09/20 21 10/11/2021 COMP. METAB OLIC PANEL (14) calcium 9.8 mg/dL 8.7-10 .2 Not Available [facility] ([facility]) [address] [place], [address], 10/14/2021 16:11:10 10/09/20 21 10/11/2021 COMP. METAB OLIC PANEL (14) protein, total 7.4 g/dL 6.0-8. 5 Not Available [facility] ([facility]) [address] [facility], [place], [address], 10/14/2021 16:11:10 10/09/20 21 10/11/2021 COMP. METAB OLIC PANEL (14) albumin 4.3 g/dL 3.8-4. 9 Not Available [facility] ([facility]) [address] [facility], [place], [address], 10/14/2021 16:11:10 10/09/20 21 10/11/2021 COMP. METAB OLIC PANEL (14) globulin, total 3.1 g/dL 1.5-4. 5 Not Available [facility] ([facility]) [address] [facility], [place], [address], 10/14/2021 16:11:10 10/09/20 21 10/11/2021 COMP. METAB OLIC PANEL (14) A/G ratio 1.4 1.2-2. 2 Not Available [facility] ([facility]) [address] [facility], [place], [address], 10/14/2021 16:11:10 10/09/20 21 10/11/2021 COMP. METAB OLIC PANEL (14) bilirubin, total 0.4 mg/dL 0.0-1. 2 Not Available [facility] ([facility]) [address] [facility], [place], [address], 10/14/2021 16:11:10 10/09/20 21 10/11/2021 COMP. METAB OLIC PANEL (14) alkaline phosphatase 69 IU/L 44-121 Ple ase note refer ence inter jim reis e Not Available [facility] ([facility]) [address] [facility], [place], [address], 10/14/2021 16:11:10 10/09/20 21 10/11/2021 COMP. METAB OLIC PANEL (14) AST (SGOT) 18 IU/L 0-40 Not Available [facility] ([facility]) [address] [facility] [address] [facility], [place], [address], 10/14/2021 16:11:10 10/09/20 21 10/11/2021 COMP. METAB OLIC PANEL (14) ALT (SGPT) 28 IU/L 0-44 Not Available [facility] ([facility]) [address] [facility], [place], [address], 10/14/2021 16:11:10 03/24/20 22 03/25/2022 CULTU RE, URINE , ROUTI NE culture, urine, routine CULTU RE, URINE , ROUTI NE Micro Numbe r: [id number] Test Statu s: Final Speci men Sourc e: Urine , clean catch Speci men Quali ty: Adequ ate Resul t: No Growt h Not Available [address], [address], 03/25/2022 22:38:45 03/24/20 22 03/25/2022 URINA LYSIS , COMPL ETE color yellow yellow normal Not Available [address], [address], 03/25/2022 22:38:44 03/24/20 22 03/25/2022 URINA LYSIS , COMPL ETE appearance clear clear normal Not Available [facility] [address], [address], 03/25/2022 22:38:44 03/24/20 22 03/25/2022 URINA LYSIS , COMPL ETE specific gravity 1.014 1.001- 1.035 normal Not Available [facility] [address], [address], 03/25/2022 22:38:44 03/24/20 22 03/25/2022 URINA LYSIS , COMPL ETE pH 8.0 5.0-8. 0 normal Not Available [address], [address], 03/25/2022 22:38:44 03/24/20 22 03/25/2022 URINA LYSIS , COMPL ETE glucose negati ve negati ve normal Not Available [facility] [address], [address], 03/25/2022 22:38:44 03/24/20 22 03/25/2022 URINA LYSIS , COMPL ETE bilirubin negati ve negati ve normal Not Available [facility] [address], [address], 03/25/2022 22:38:44 03/24/20 22 03/25/2022 URINA LYSIS , COMPL ETE ketones negati ve negati ve normal Not Available [facility] [address], [address], 03/25/2022 22:38:44 03/24/20 22 03/25/2022 URINA LYSIS , COMPL ETE occult blood negati ve negati ve normal Not Available [address], [address], 03/25/2022 22:38:44 03/24/20 22 03/25/2022 URINA LYSIS , COMPL ETE protein negati ve negati ve normal Not Available [facility] [address], [address], 03/25/2022 22:38:44 03/24/20 22 03/25/2022 URINA LYSIS , COMPL ETE nitrite negati ve negati ve normal Not Available [address], [address], 03/25/2022 22:38:44 03/24/20 22 03/25/2022 URINA LYSIS , COMPL ETE leukocyte esterase negati ve negati ve normal Not Available [facility] [address] [place], [address], 03/25/2022 22:38:44 03/24/20 22 03/25/2022 URINA LYSIS , COMPL ETE WBC none seen /hpf < or = 5 normal Not Available [address], [address], 03/25/2022 22:38:44 03/24/20 22 03/25/2022 URINA LYSIS , COMPL ETE RBC none seen /hpf < or = 2 normal Not Available [address], [address], 03/25/2022 22:38:44 03/24/20 22 03/25/2022 URINA LYSIS , COMPL ETE squamous epithelial cells none seen /hpf < or = 5 normal Not Available [address], [address], 03/25/2022 22:38:44 03/24/20 22 03/25/2022 URINA LYSIS , COMPL ETE bacteria none seen /hpf none seen normal Not Available [address], [address], 03/25/2022 22:38:44 03/24/20 22 03/25/2022 URINA LYSIS , COMPL ETE hyaline cast none seen /lpf none seen normal Not Available [address], [address], 03/25/2022 22:38:44 04/08/20 22 04/09/2022 CBC (INCL UDES DIFF/ PLT) white blood cell count 5.1 thous and/u L 3.8-10 .8 normal Not Available [address], [address], 04/09/2022 07:22:46 04/08/20 22 04/09/2022 CBC (INCL UDES DIFF/ PLT) red blood cell count 5.36 kalpesh on/uL 4.20-5 .80 normal Not Available [address], [address], 04/09/2022 07:22:46 04/08/20 22 04/09/2022 CBC (INCL UDES DIFF/ PLT) hemoglobin 14.9 g/dL 13.2-1 7.1 normal Not Available [address], [address], 04/09/2022 07:22:46 04/08/20 22 04/09/2022 CBC (INCL UDES DIFF/ PLT) hematocrit 45.5 % 38.5-5 0.0 normal Not Available [address], [address], 04/09/2022 07:22:46 04/08/20 22 04/09/2022 CBC (INCL UDES DIFF/ PLT) MCV 84.9 fL 80.0-1 00.0 normal Not Available [address], [address], 04/09/2022 07:22:46 04/08/20 22 04/09/2022 CBC (INCL UDES DIFF/ PLT) MCH 27.8 pg 27.0-3 3.0 normal Not Available [address], [address], 04/09/2022 07:22:46 04/08/20 22 04/09/2022 CBC (INCL UDES DIFF/ PLT) MCHC 32.7 g/dL 32.0-3 6.0 normal Not Available [address], [address], 04/09/2022 07:22:46 04/08/20 22 04/09/2022 CBC (INCL UDES DIFF/ PLT) RDW 13.5 % 11.0-1 5.0 normal Not Available [address], [address], 04/09/2022 07:22:46 04/08/20 22 04/09/2022 CBC (INCL UDES DIFF/ PLT) platelet count 209 thous and/u L 140-40 0 normal Not Available [address], [address], 04/09/2022 07:22:46 04/08/20 22 04/09/2022 CBC (INCL UDES DIFF/ PLT) MPV 10.4 fL 7.5-12 .5 normal Not Available [address], [address], 04/09/2022 07:22:46 04/08/20 22 04/09/2022 CBC (INCL UDES DIFF/ PLT) absolute neutrophils 3249 cells /uL 1500-7 800 normal Not Available [address], [address], 04/09/2022 07:22:46 04/08/20 22 04/09/2022 CBC (INCL UDES DIFF/ PLT) absolute lymphocytes 1224 cells /uL 850-39 00 normal Not Available [address], [address], 04/09/2022 07:22:46 04/08/20 22 04/09/2022 CBC (INCL UDES DIFF/ PLT) absolute monocytes 479 cells /uL 200-95 0 normal Not Available [address], [address], 04/09/2022 07:22:46 04/08/20 22 04/09/2022 CBC (INCL UDES DIFF/ PLT) absolute eosinophils 128 cells /uL 15-500 normal Not Available [address], [address], 04/09/2022 07:22:46 04/08/20 22 04/09/2022 CBC (INCL UDES DIFF/ PLT) absolute basophils 20 cells /uL 0-200 normal Not Available [facility] [place] [id number] Administratio n, [place], [address], 04/09/2022 07:22:46 04/08/20 22 04/09/2022 CBC (INCL UDES DIFF/ PLT) neutrophils 63.7 % normal Not Available [address], [address], 04/09/2022 07:22:46 04/08/20 22 04/09/2022 CBC (INCL UDES DIFF/ PLT) lymphocytes 24.0 % normal Not Available [facility] [address], [address], 04/09/2022 07:22:46 04/08/20 22 04/09/2022 CBC (INCL UDES DIFF/ PLT) monocytes 9.4 % normal Not Available [address], [address], 04/09/2022 07:22:46 04/08/20 22 04/09/2022 CBC (INCL UDES DIFF/ PLT) eosinophils 2.5 % normal Not Available [address], [address], 04/09/2022 07:22:46 04/08/20 22 04/09/2022 CBC (INCL UDES DIFF/ PLT) basophils 0.4 % normal Not Available [address], [address], 04/09/2022 07:22:46 04/08/20 22 04/09/2022 LIPAS E lipase 32 U/L 7-60 normal Not Available [address], [address], 04/09/2022 07:22:45 04/08/20 22 04/09/2022 AMYLA SE amylase 34 U/L 21-101 normal Not Available [address], [address], 04/09/2022 07:22:45 04/08/20 22 04/09/2022 COMPR EHENS DWAYNE METAB OLIC PANEL glucose 105 mg/dL 65-99 high Fasti ng refer ence inter jim For someo ne witho ut known diabe omar, a gluco se value betwe en 100 and 125 mg/dL is consi stent with predi abete s and shoul d be confi rmed with a follo w-up test. Not Available [facility] [address] [address] [place], [address], 04/09/2022 07:22:44 04/08/20 22 04/09/2022 COMPR EHENS DWAYNE METAB OLIC PANEL urea nitrogen (BUN) 14 mg/dL 7-25 normal Not Available [facility] [address] [address] [place], [address], 04/09/2022 07:22:44 04/08/20 22 04/09/2022 COMPR EHENS DWAYNE METAB OLIC PANEL creatinine 1.02 mg/dL 0.70-1 .33 normal For patie nts >49 years of age, the refer ence limit for Creat inine is appro ximat ghanshyam 13% highe r for peopl e ident ified as Afric an-Am hussein n. Not Available [facility] [address] [address] [place], [address], 04/09/2022 07:22:44 04/08/20 22 04/09/2022 COMPR EHENS DWAYNE METAB OLIC PANEL eGFR non-afr. hungarian 85 mL/mi n/1.7 3m2 > or = 60 normal Not Available [facility] [address] [address] [place], [address], 04/09/2022 07:22:44 04/08/20 22 04/09/2022 COMPR EHENS DWAYNE METAB OLIC PANEL eGFR 98 mL/mi n/1.7 3m2 > or = 60 normal Not Available [facility] [address] [address] [place], [address], 04/09/2022 07:22:44 04/08/20 22 04/09/2022 COMPR EHENS DWAYNE METAB OLIC PANEL BUN/creatini ne ratio not applic able (calc ) 6-22 Not Available [address], [address], 04/09/2022 07:22:44 04/08/20 22 04/09/2022 COMPR EHENS DWAYNE METAB OLIC PANEL sodium 138 mmol/ L 135-14 6 normal Not Available [address], [address], 04/09/2022 07:22:44 04/08/20 22 04/09/2022 COMPR EHENS DWAYNE METAB OLIC PANEL potassium 4.4 mmol/ L 3.5-5. 3 normal Not Available [address], [address], 04/09/2022 07:22:44 04/08/20 22 04/09/2022 COMPR EHENS DWAYNE METAB OLIC PANEL chloride 102 mmol/ L 98-110 normal Not Available [address], [address], 04/09/2022 07:22:44 04/08/20 22 04/09/2022 COMPR EHENS DWAYNE METAB OLIC PANEL carbon dioxide 28 mmol/ L 20-32 normal Not Available [address], [address], 04/09/2022 07:22:44 04/08/20 22 04/09/2022 COMPR EHENS DWAYNE METAB OLIC PANEL calcium 9.4 mg/dL 8.6-10 .3 normal Not Available [address], [address], 04/09/2022 07:22:44 04/08/20 22 04/09/2022 COMPR EHENS DWAYNE METAB OLIC PANEL protein, total 7.7 g/dL 6.1-8. 1 normal Not Available [address], [address], 04/09/2022 07:22:44 04/08/20 22 04/09/2022 COMPR EHENS DWAYNE METAB OLIC PANEL albumin 4.5 g/dL 3.6-5. 1 normal Not Available [address], [address], 04/09/2022 07:22:44 04/08/20 22 04/09/2022 COMPR EHENS DWAYNE METAB OLIC PANEL globulin 3.2 g/dL_ (calc ) 1.9-3. 7 normal Not Available [address], [address], 04/09/2022 07:22:44 04/08/20 22 04/09/2022 COMPR EHENS DWAYNE METAB OLIC PANEL albumin/glob ulin ratio 1.4 (calc ) 1.0-2. 5 normal Not Available [address], [address], 04/09/2022 07:22:44 04/08/20 22 04/09/2022 COMPR EHENS DWAYNE METAB OLIC PANEL bilirubin, total 0.8 mg/dL 0.2-1. 2 normal Not Available [address], [address], 04/09/2022 07:22:44 04/08/20 22 04/09/2022 COMPR EHENS DWAYNE METAB OLIC PANEL alkaline phosphatase 71 U/L 35-144 normal Not Available [facility] [address], [address], 04/09/2022 07:22:44 04/08/20 22 04/09/2022 COMPR EHENS DWAYNE METAB OLIC PANEL AST 27 U/L 10-35 normal Not Available [address], [address], 04/09/2022 07:22:44 04/08/20 22 04/09/2022 COMPR EHENS DWAYNE METAB OLIC PANEL ALT 36 U/L 9-46 normal Not Available [facility] [address] [address] , [place], [address], 04/09/2022 07:22:44 08/04/20 21 07/16/2021 XR, abdom en No observ ation record ed. MIGRATION. [facility] (Imaging) [address], [place], [address], 12/29/2022 07:40:17 08/04/20 21 07/17/2021 US, echoc ardio gram, trans thora cic, compl ete, w/ color flow No observ ation record ed. MIGRATION. [facility] (Imaging) [address] [facility] [address] [facility] [address], [place], [address], 12/29/2022 07:40:17 04/16/20 22 04/16/2022 US, abdom en No observ ation record ed. MIGRATION. [facility] (Imaging) [address], [place], [address], 12/29/2022 07:40:17 01/27/20 23 01/26/2023 lata can cardi olite stres s test (PROC ) No observ ation record ed. [email or web address] [facility] [address] [facility] [address] [facility] [address], [place], [address], 01/28/2023 11:54:37 04/05/20 23 04/01/2023 colon oscop y scree shandra (PROC ) No observ ation record ed. [email or web address] Laith Gaviria MD [address], [place], [address], 07/19/2023 18:03:13 11/17/19 24 10/23/2023 CT, brain , w/o contr ast No observ ation record ed. [place] [address], [place], [address], 11/17/2023 15:13:23 Result Notes None recorded. Problems Name Problem SNOMED Code Status Onset Date Resolution Date Notes Provider Name and Address Organization Details Recorded Time Abdominal bloating 979455178 Active 2021 Not Available [facility] 3 07:31:45 Abnormal urinalysi s 523610362 Active 2021 Not Available [facility] 3 07:31:45 Degenerat ion of lumbar intervert ebral disc 78480615 Active Not Available [facility] 3 07:31:45 Periphera l neuropath ic pain 897114306 Active 2021 Not Available [facility] 3 07:31:45 Left lower quadrant pain 038142450 Active 2021 Not Available [facility] 3 07:31:45 Acute sciatica 919830099 Active Not Available [facility] 3 07:31:45 Pyeloneph ritis 65000480 Active 2022 Not Available [facility] 3 07:31:45 COVID-19 807722125 Completed 202007/31/2021 Not Available [facility] 3 07:31:45 Pneumonia caused by SARS-CoV- 2 15816068954 [id number] Completed 202007/31/2021 Not Available [facility] 3 07:31:45 Hyperlipi demia 51354879 Active 2022 ISABEL De Oliveira [address], [place], [address] , [facility] 3 17:13:35 Intermitt ent dysphagia 64024568 Active 2022 ISABEL De Oliveira [address], [address], [place], [address] , [facility] 3 17:13:52 Folliculi tis 21827336 Active 2022 ISABEL De Oliveira [address], [address], [place], [address] , [facility] 3 17:14:03 Impaired glucose tolerance 8882895 Active 2022 ISABEL De Oliveira [address] [facility] [address], [place], [address] , [facility] 3 17:14:07 Chronic low back pain 026330189 Active 2022 ISABEL De Oliveira [address] [facility] [facility] [address], [place], [address] , [facility] 3 17:15:46 Notes:covid + 06/29/21 Problem Notes None recorded. Procedures Surgical History Date Name Laterality Status Provider Name and Address Organization Details Recorded Time Back Surgery completed Gely Orat MA [facility] 01/12/2023 16:40:21 Back Surgery completed Not Available [facility] 12/29/2022 07:27:09 Imaging Results Imaging Date Name Status LastModified by Celestino bravo Details LastModified Time 07/16/2021 XR, abdomen completed [id number] [facility] (Imaging) [address] [place] [address], [address], 12/29/2022 07:40:17 07/17/2021 US, echocardiogram, transthoracic, complete, w/ color flow completed [id number] [facility] (Imaging) [address] [place] [address], [address], 12/29/2022 07:40:17 04/16/2022 US, abdomen completed [id number] [facility] (Imaging) [address] [place] [place], [address], 12/29/2022 07:40:17 01/26/2023 lexiscan cardiolite stress test (PROC) completed [email or web address] [facility] [address], [place], [address], 01/28/2023 11:54:37 04/01/2023 colonoscopy screening (PROC) completed [email or web address] Laith Gaviria MD [address], [place], [address], 07/19/2023 18:03:13 10/23/2023 CT, brain, w/o contrast completed [address] [facility] [address], [place], [address], 11/17/2023 15:13:23 Procedure Notes None recorded. Medical Equipment None Reported. Allergies No known drug allergies Medications Name Sig Start Date Stop Date Status Note LastModified by Organization Details LastModified Time methocarbam ol 500 mg tablet TAKE ONE TABLET BY MOUTH THREE TIMES DAILY NEEDED FOR BACK PAIN 07/24 completed Not Available Not Available Not Available doxycycline hyclate 100 mg capsule TAKE 1 CAPSULE BY MOUTH TWICE A DAY WITH MEALS 01/31 completed Not Available Not Available Not Available valacyclovi r 1 gram tablet TAKE 2 TABLETS BY MOUTH EVERY 12 HOURS FOR 1 DAY THIS DOSE IF FOR OUTBREAK, ENOUGH FOR 3 OUTBREAKS active Not Available Not Available No t Available hydrocodone 5 mg-acetamin ophen 325 mg tablet TAKE 1 TABLET BY MOUTH 4-6 HOURS NEEDED FOR PAIN 01/12 completed Not Available Not Available Not Available famotidine 40 mg tablet TAKE 1 TABLET EVERY DAY BY ORAL ROUTE IN THE MORNING. 01/12 completed Not Available Not Available Not Available dexamethaso ne 6 mg tablet TAKE 1 TABLET (6 MG TOTAL) BY MOUTH DAILY WITH BREAKFAST FOR 3 DAYS 07/24 completed Not Available Not Available Not Available penicillin V potassium 500 mg tablet TAKE 1 TABLET BY MOUTH 4 TIMES A DAY UNTIL GONE 01/11 completed Not Available Not Available Not Available metronidazo le 500 mg tablet 01/11 completed Not Available Not Available Not Available amlodipine 5 mg tablet TAKE 1 TABLET BY MOUTH ONCE DAILY 04/07 completed Not Available Not Available Not Available ciprofloxac in 500 mg tablet Take 1 tablet every 12 hours by oral route. 01/11 completed Not Available Not Available Not Available sulfamethox azole 800 mg-trimetho prim 160 mg tablet TAKE 1 TABLET BY MOUTH EVERY 12 HOURS active Not Available Not Available No t Available peg-electro lyte solution 420 gram oral solution active Not Available Not Available Not Available tramadol 50 mg tablet 07/24 completed Not Available Not Available Not Available acetaminoph en 500 mg tablet TAKE 2 TABLETS BY MOUTH EVERY 6 HOURS FOR 14 DAYS 04/07 completed Not Available Not Available Not Available acyclovir 800 mg tablet active Not Available Not Available Not Available tamsulosin 0.4 mg capsule 07/11 completed Not Available Not Available Not Available baclofen 10 mg tablet TAKE 1 TABLET (10 MG TOTAL) BY MOUTH EVERY 8 (EIGHT) HOURS NEEDED FOR MUSCLE SPASMS 01/12 completed Not Available Not Available Not Available gabapentin 300 mg capsule TAKE 1 CAPSULE BY MOUTH THREE TIMES A DAY 04/07 completed Not Available Not Available Not Available diclofenac sodium 75 mg tablet,nisa yed release TAKE ONE TABLET BY MOUTH TWICE DAILY WITH MEALS NEEDED FOR BACK PAIN active Not Available Not Available No t Available mupirocin 2 % topical ointment PLACE SMALL AMOUNT OF OINTMENT IN EACH NOSTRIL WITH A Q-TIP TWICE DAILY FOR 5 DAYS PRIOR TO SURGERY 04/07 completed Not Available Not Available Not Available ergocalcife rol (vitamin D2) 1,250 mcg (50,000 unit) capsule Take 1 capsule every week by oral route. active Not Available Not Available No t Available Tylenol-Cod eine #3 300 mg-30 mg tablet Take 1 tablet every 8 hours by oral route as needed. 07/24 completed Not Available Not Available Not Available methylpredn isolone 4 mg tablets in a dose pack take by oral route at the start of each day 07/11 completed Not Available Not Available Not Available albuterol sulfate HFA 90 mcg/actuati on aerosol inhaler INHALE 2 PUFFS EVERY 4 HOURS NEEDED FOR WHEEZE OR FOR SHORTNESS OF BREATH 04/07 completed Not Available Not Available Not Available ondansetron 4 mg disintegrat ing tablet 07/11 completed Not Available Not Available Not Available amoxicillin 500 mg-potassiu m clavulanate 125 mg tablet TAKE 1 TABLET BY MOUTH EVERY 12 HOURS FOR 7 DAYS 07/24 completed Not Available Not Available Not Available oxycodone 5 mg tablet TAKE 1 TABLET BY MOUTH EVERY 4 HOURS NEEDED FOR MODERATE TO SEVERE BREAKTHRO UGH PAIN 04/07 completed Not Available Not Available Not Available magnesium 2021 active Not Available Not Available Not Avai lable zinc 2021 active Not Available Not Available Not Avai lable Flector 1.3 % transdermal 12 hour patch Apply 1 patch twice a day by transderm al route as directed. 07/24 completed Not Available Not Available Not Available Senexon-S 8.6 mg-50 mg tablet TAKE 1 TABLET BY MOUTH 2 TIMES A DAY NEEDED FOR CONSTIPAT ION 04/07 completed Not Available Not Available Not Available Vicodin 5 mg-300 mg tablet Take 1 tablet every 6 hours by oral route. 2015 active Not Available Not Available Not Avai lable Multi Vitamin 2022 active Not Available Not Available Not Avai lable Vitals Date Recorded Body mass index (BMI) Body height Oxygen saturation Oxygen saturation in Arterial blood by Pulse oximetry Heart rate Body temperature Body weight Systolic blood pressure Diastolic blood pressure Provider Name and Address Organization Details Last Updated DateTime 1 33.2 kg/m2 180.34 cm 96 % 96 % 122 /min 97.1 [degF] 380171. 27 g 120 mm[Hg] 80 mm[Hg] Not Available [facility] 3 07:28:55 Date Recorded Body mass index (BMI) Body height Oxygen saturation Oxygen saturation in Arterial blood by Pulse oximetry Heart rate Respiratory rate Body temperature Body weight Systolic blood pressure Diastolic blood pressure Provider Name and Address Organization Details Last Updated DateTime 2 35.7 kg/m2 180.34 cm 96 % 96 % 106 /min 16 /min 98 [degF] 044837. 65 g 110 mm[Hg] 68 mm[Hg] Not Available [facility] 3 07:28:55 Date Recorded Body height Body mass index (BMI) Body weight Body temperature Heart rate Oxygen saturation Oxygen saturation in Arterial blood by Pulse oximetry Systolic blood pressure Diastolic blood pressure Provider Name and Address Organization Details Last Updated DateTime 3 180.34 cm 36.1 kg/m2 611876. 42 g 98.2 [degF] 93 /min 97 % 97 % 118 mm[Hg] 84 mm[Hg] Gely Orta MA [facility] [employer] [facility] 16:42:45 Social History Question Answer Notes LastModified by Organizat ion Details LastModified Time Tobacco Smoking Status Never Smoker NIRMAL Roberts, [facility] [employer] [facility] 01/12/2023 16:24:45 Do You Have An Advance Directive? No [id number] Information not available 12/29/2022 What Is Your Level Of Alcohol Consumption? None [id number] Information not available 12/29/2022 Do You Wear A Helmet When Biking? No [email or web address] Information not available 01/12/2023 Is Blood Transfusion Acceptable In An Emergency? No [email or web address] Information not available 01/12/2023 What Is Your Level Of Caffeine Consumption? Moderate Monster- Daily [id number] Information not available 12/29/2022 In The 14 Days Before Symptom Onset, Have You Had Close Contact With A Laboratory-confir med COVID-19 While That Case Was Ill? No [email or web address] Information not available 01/12/2023 In The 14 Days Before Symptom Onset, Have You Had Close Contact With A Person Who Is Under Investigation For COVID-19 While That Person Was Ill? No [email or web address] Information not available 01/12/2023 Are You Currently Employed? Yes [email or web address] Information not available 01/12/2023 What Type Of Diet Are You Following? REGULAR [id number] Information not available 12/29/2022 What Is The Highest Grade Or Level Of School You Have Completed Or The Highest Degree You Have Received? 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 No [email or web address] Information not available 01/12/2023 Have There Been Any Changes To Your Family Or Social Situation? No [email or web address] Information no t available 01/12/2023 Are There Any Guns Present In Your Home? Yes [email or web address] Information not available 01/12/2023 Do You Use Insect Repellent Routinely? Yes [email or web address] Information not available 01/12/2023 Do You Have A Medical Power Of Medical Technologist? No [email or web address] Information not available 01/12/2023 Do You Have Moisture Problems In Your Home? No [email or web address] Information not available 01/12/2023 What Is Your Relationship Status? [id number] Information not available 12/29/2022 Do You Use Your Seat Belt Or Car Seat Routinely? Yes [email or web address] Information not available 01/12/2023 Do You Have Smoke And Carbon Monoxide Detectors In Your Home? Yes [email or web address] Information not available 01/12/2023 Do You Participate In Social Hydrobolt? No [email or web address] Information not available 01/12/2023 Do You Feel Stressed (tense, Restless, Nervous, Or Anxious, Or Unable To Sleep At Night)? [id number] [email or web address] Information not available 01/12/2023 Do You Use Any Illicit Or Recreational Drugs? No [email or web address] Information not available 01/12/2023 Do You Use Sunscreen Routinely? Yes [email or web address] Information not available 01/12/2023 Has Tobacco Cessation Counseling Been Provided? No [email or web address] Information not available 01/12/2023 Have You Recently Traveled Abroad? No [email or web address] Information not available 01/12/2023 Are You Currently In School? No [email or web address] Information not available 01/12/2023 Do You Have Any Dietary Restrictions? No [email or web address] Information not available 01/12/2023 Do You Or Have You Ever Used Any Other Forms Of Tobacco Or Nicotine? No [email or web address] Information not available 01/12/2023 Sex: Unknown Functional Status Question Answer Note LastModified by Organizat ion Details LastModified Time What is your exercise level? None [id number] Information not available 12/29/2022 Mental Status None recorded. Family History Relationship Description Onset Age of this Age Resolved Age Notes LastModified by Organization Details LastModified Time Mother Malignant tumor of lung [id number] Not available 12/29/2022 07:27:12 Father Chronic obstructive pulmonary disease [id number] Not available 12/29/2022 07:27:12 Medical History Condition Response EYE PROBLEMS N URINARY/BLADDER/KIDNEY PROBLEMS Y KIDNEY STONES Y BACK / NECK PROBLEMS Y Immunizations Vaccine Type Date Status Note Provider Juwan schuler and Address Organization Details Recorded Time influenza, unspecified formulation 5 completed Not Available [facility] 12/29/2022 07:39:54 Tdap 2 completed Not Available [facility] 12/29/2022 07:39:54 Past Encounters Encounter ID Performer Location Encounter Start Date Encounter Closed Date Diagnosis/Indication Diagnosis SNOMED-CT Code Diagnosis ICD10 Code Diagnosis Note [id number] [facility] [address] [place] [address] 07/24/2021 00:00:00 07/26/2021 21:21:44 [id number] [facility] [address] [place] [address] 04/07/2022 00:00:00 04/29/2022 18:12:33 [id number] ISABEL De Oliveira [facility] [address] [place] [address] 01/12/2023 16:24:04 01/12/2023 17:19:24 Adult health examination 361846593 Z00.01 well exam completed Hyperlipidemia 83187386 E78.5 pt has declined statin therapy and continues to pick on diet management . recommenda tions given that medication is indicated. he will repeat labs in may. Impaired g lucose tolerance 7998485 R73.03 5.8% A1c following. Watch carbs and sugars. limited on his exercise due to chronic back issues. Family his tory of premature coronary heart disease 959781219 Z82.49 refer for screening lexiscan testing with fam hx of premature CAD. He is UNABLE to complete treadmill stress testing due to his low back fusion hx and current continued pain. Intermitte nt dysphagia 40936901 R13.19 refer for EGD with reported intermitte nt dysphagia Screening for malignant neoplasm of colon 393083330 Z12.11 refer for colonoscop y Folliculitis 88875093 L7 3.9 start course of doxy 100mg bid x 10 days History of lumbar fusion 4827359127 9106 Z98.1 Chronic low back pain 27 3187833 M54.50 seeing his neurosurge ry specialist for management . Long-term drug therapy 533846216 Z79.899 CMP repeat due in may. Health Concerns Section Related Observation LastModified by Organization Detai ls LastModified Time None Recorded Concern Status LastModified by Organization Details LastModified Time None Recorded Advance Directives Directive N: Payers Encounter Date Sequence Insurance Name Policy Number Policy Lynch Covered Member ID Lynch Member ID Guarantor Name 01/12/2023 1 [place] [id number] Dk Quinones [id number] Dk Quinones Notes Date Note Type Note Provider Name and Address Organization Details Recorded Time 07/24/2021 text/html Generic HPI TemplateReported bypatient.Notes:First hospital admission was for Covid and pneumonia at [facility]. He was in for 5 days in this admission. Pt is here today for a ER follow up, was sent to the ER from Urgent care for septic.Was seen for back pain, dysuria, frequent urination, and fever. ER ran labs. Was dx with pyelonephritis. Was given Amoxicillin that he finished today. Since d/c pt is- a lot better. still has quit a bit of back pain, has an appt with ortho on tuesday Not Available [facility] 07/26/2021 21:21:44 04/07/2022 text/html Foot Problem - DetailedReported bypatient.Location:bi lateral Quality:burning; constant; worsening Severity:no pain Timing:gradual Alleviating Factors:sitting; lying down; rest Aggravating Factors:standing; walking Associated Symptoms:no weakness; no swelling; no redness; no warmth; no ecchymosis; no catching/locking; no popping/clicking; no buckling; no grinding; no instability; no drainage; no fever; no chills; no weight loss; no change in bowel/bladder habits;numbness;tingl ing;radiation down leg Work Related:no Working:regular dutyNotes:Pt is also experiencing bloating when he eats, he doesn't know if these two things are related. Not Available [facility] 04/29/2022 18:12:33 01/12/2023 text/html having some acne but here just for routine check up ISABEL De Oliveira [address] [facility] [address], [place], [address], [facility] 01/16/2023 13:11:39
--- OUTSIDE RECORDS SUMMARY | 2025-01-25 16:02 | XMS_ITS | Clinical Summary ---
Author Organization [facility] [place] Address [address] [place] [address] Care Team Providers Care Batch Attendant Name Role Phone Buster Pearson MD Primary Care Provider [phone] Source Comments [facility] [place],non-owned Affiliates and Associated Physician Practices is amultiple site organization consisting of ambulatory clinics and hospital sitesin [place], [place] and [place]. This disclosure is being madepursuant to the Care Everywhere program and may not contain all information available regarding this patient. Last updated 18.[facility] [place] Allergies No known active allergies Medications * Be aware that medications may not be up to date on this document. Alwaysverify current medications with the patient. Medication Sig Dispensed Refills Start Date End Date Status Ivermectin (Soolantra) 1 %Indications:Other rosacea 1 Each by Apply externally route once daily 45 g 11 02/07/2024 Active metroNIDAZOLE (Metrogel) 0.75 % gel Apply to areas prone to redness, breakouts bid. 30 DS 45 g 11 06/12/2024 Active clindamycin (Cleocin) 1 % lotionIndications:Ac ne vulgaris Apply to affected area on chest daily. 30 day supply. 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 06/12/2024 Other rosacea 02/07/2024 Xerosis cutis 02/07/2024 Acne vulgaris 02/07/2024 Folliculitis 01/12/2023 02/07/2024 Peripheral neuropathic pain 04/07/2022 04/0 07/2024 Degeneration of lumbar intervertebral disc 12/0502/07/2024 Pneumonia due to COVID-19 virus 07/31/2021 02/07/2024 Cerebral ventriculomegaly 07/14/20212023 Hepatic steatosis 07/14/2021 02/07/2024 Viral sepsis 07/14/2021 02/07/2024 COVID-19 07/03/2021 02/07/2024 Vitamin D deficiency 03/04/2020 02/07/2024 Resolved Problems Problem Noted Date Diagnosed Date Resolved Date [place]'s disease 02/07/2024 02/07/2024 Social History Tobacco Use Types Packs/Day Years Used Date Smoking Tobacco: Never Smokeless Tobacco: Never Tobacco Cessation:Counseling Given: Not Answered Sex and Gender Information Value Date Recorded Sex Assigned at Not on file Gender Identity Not on file Sexual Orientation Not on file Plan of Treatment Upcoming Encounters Date Type Department Care Team (Late st Contact Info) Description 06/14/2025 3:00 PM CDT Office Visit [facility] - Dermatology [address] [place] [address], [facility] [place] [address] Max Yuan MD [address] [place] [address] [place] [address] Health Maintenance Due Date Last Done Comments COLOGUARD (AGES 45-75) - COL ON CA SCREENING 1970 COLON MONITORING 1970 COLONOSCOPY - COLON CA SCREENING 1970 CT COLONOGRAPHY - COLON CA SCREENING 1970 Colorectal Cancer Screening 1970 FIT - COLON CA SCREENING 1970 FLEX SIG - COLON CA SCREENING 1970 LIPID TESTING 1970 HIV SCREENING 1985 HEPATITIS C SCREENING 09/22/1988 DTAP/TDAP/TD VACCINES (1 - Tdap) 1989 HEPATITIS B VACCINE (1 of 3 - 19+ 3-dose series) 1989 PNEUMOCOCCAL VACCINE 50+ (1 of 1 - PCV) 2020 ZOSTER VACCINE (1 of 2) 2020 COVID-19 VACCINE (1 - 2023-2 5 season) 2024 INFLUENZA VACCINE (#1) 2024 10/31/2014 DEPRESSION SCREENING 10/31/2024 HIB VACCINE Aged Out No longer eligi ble based on patient's age to complete this topic HPV VACCINE Aged Out No longer eligi ble based on patient's age to complete this topic MENINGOCOCCAL (Group B) VACC INE SHARED DECISION-MAKING Aged Out No longer eligibl e based on patient's age to complete this topic MENINGOCOCCAL GROUPS A/C/Y/W VACCINE Aged Out No longer eligible b ased on patient's age to complete this topic Care Teams Batch Attendant Relationship Specialty Start Date End Date Buster Pearson MD [address] [place] [address] PCP - General 03/07/23
--- OUTSIDE RECORDS SUMMARY | 2025-01-25 16:02 | XMS_ITS | CONTINUITY OF CARE DOCUMENT ---
Author Name kamla cason Address Unknown Organization [facility] Address [address] [place] [address] Phone [phone] Care Team Providers Care Lifestyle Block Farmer Name Role Phone Epi TORRES, Unavailable [phone] MARK LOPEZ Unavailable [phone] INSURANCE PROVIDERS Payer name Policy type / Coverage type [employer] party ID [facility] [id number]
--- OUTSIDE RECORDS SUMMARY | 2025-01-25 16:02 | XMS_ITS | Clinical Summary ---
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 [...] fracture. Electronically signed by: Arnie See D.O. Forrest Regan MD IMG XR PROCEDURES Final Re sult * Imaging Lumbar/Sacral Selective Nerve Root INJ (TFE) Right (56564) (11/28/2024 3:18 PM HYDRAULIC PRESS SERVICER) Narrative [facility] - 11/28/2024 3:18 PM HYDRAULIC PRESS SERVICER The images from this study are not interpreted by Radiology. Please refer to the physician's procedure / OR operative note. Jojo Oviedo MD G PAIN MGMT PROCEDURES F inal Result [facility] * Transthoracic Echo (TTE) Complete W Doppler/CF (11/26/2024 11:05 AM HYDRAULIC PRESS SERVICER) Anatomical Region Laterality Modality Ultrasound us Farzad Anthony MD CV ECHO PROCEDURES Final R esult * Cardiology Document Scan (11/13/2024 3:09 PM HYDRAULIC PRESS SERVICER) Anatomical Region Laterality Modality Other us Farzad Anthony MD CV CARDIAC SERVICES PROCED URES Final Result from Last 3 Months Insurance [employer] [place] [facility] Advance Directives For more information, please contact: [phone] * Full Code (Latest Code Status on [...] 1:44 PM 07/10/2021 1:20 AM Care Teams [facility] Emergency Services Manager Relationship Specialty Start Date End Date Rome Jacobson MD [address] [address] PCP - General Family Medicine 01/07/25 Filipe Briggs MD [address] [place] [address] [place] [address] Referring Physician Cardiovascular Disease 01/17/25
--- OUTSIDE RECORDS SUMMARY | 2025-01-25 16:02 | XMS_ITS | Continuity of Care Document ---
Author Organization [facility] Address [address] [place] [address] [place] [address] Phone Care Team Providers Care Surgical Scrub Technologist Name Role Phone Gordon Young MD Unavailable Unavailable Advance Directives Directive Yes / No Effective Date File Name No Information Encounters Encounter Description Practice Location Reason(s) For Visit Diagnoses Date Provider Providers Copied on Encounter [facility], [address], [place], [place], [id number], [place] tel:[phone] [address] [facility] No Information [address] Leyva. [address] [facility], [address], [place], [place], [id number], [place]. tel:[phone] Family History Family Member Type Diagnosis Age At Onset No Information Payers Payer name Insurance type Covered constitution party ID Authoriza tion(s) No Information Social History Type Description Quantity Date Captured Comments Sex Male Smoking Status No Information Chief Complaint And Reason For Visit No Information Reason For Referral Reason For Referral No Information History Of Present Illness Encounter Date Complaint History Of Prese nt Illness No Information Functional Status Date Functional Assessmen t No Information Instructions Date Instruction Additional Infor mation No Information Assessments Type Assessment Date No Information Patient Care Teams Name Effective Dates (start - stop) Status Members No Information
--- OUTSIDE RECORDS SUMMARY | 2025-01-25 16:02 | XMS_ITS | Data Portability ---
Author Organization [facility] Address [address] [facility] [place] [address] Care Team Providers Care Oil Well Fishing Tool Technician Name Role Phone MARK BULLOCK Primary Care Provider Unavailab le Assessment No assessment recorded. Plan of Treatment Reminders Order Date Submit Date Provider Last Modified By Organization Details Last Modified Time Details Appointments None recorded. Lab lipid panel, serum [facility], [address], [address], [place], [address], 4 03:37:30 CBC w/ auto diff [facility], [address], [address], [place], [address], 4 03:37:36 CMP, serum or plasma [facility], [address], [address], [place], [address], 4 03:37:31 TSH + free T4, serum [facility], [address], [address], [place], [address], 4 03:37:28 vitamin B12 + folate, serum or blood [facility], [address], [address], [place], [address], 4 03:37:32 PSA, total, serum or plasma [facility], [address], [address], [place], [address], 03:37:37 testoster one, free + total, serum [facility], [address], [address], [place], [address], 03:37:27 HbA1c (hemoglob in A1c), blood [facility], [address], [address], [place], [address], 03:37:34 insulin, serum [facility], [address], [address], [place], [address], 03:37:35 Referral None recorded. Procedures None recorded. Surgeries None recorded. Imaging None recorded. Medication Orders None recorded. Patient TargetsNo targets recorded. Patient Instructions Encounter Date Encounter Id Patient Instructions Last Modified By Organization Details Last Modified Time 07/31/2024 [id number] A healthy lifestyle: care instructions [email or web address] Not available 07/31/2024 17:03:06 Reason for Referral None Reported. Results Created Date Observation Date Name Description Value Unit Range Abnormal Flag Note LastModifiedBy Organization Detail LastModifiedTime 08/03/2008/04/2024 TESTO STERO NE,FR EE AND TOTAL testosterone 462 NG/dL 264-91 6 Adult male refer ence inter jim is based on a popul ation of healt hy nonob beatrice males (BMI <30) betwe en 19 and 39 years old. Adolfo macedo et.al . JCEM 2017, 102;1 161-1 173. PMID: 48655 103. Not Available [facility] ([facility]) [address], [place], [address], 08/09/2024 03:37:27 08/03/2008/09/2024 TESTO STERO NE,FR EE AND TOTAL free testosterone (direct) 10.0 pg/mL 7.2-24 .0 Not Available [facility] ([facility]) [address] [place], [address], 08/09/2024 03:37:27 08/03/20 24 08/04/2024 TSH+F REE T4 TSH 1.700 uIU/m L 0.450- 4.500 Not Available [facility] ([facility]) [address] [place], [address], 08/09/2024 03:37:28 08/03/2008/04/2024 TSH+F REE T4 T4,free(dire ct) 0.90 NG/dL 0.82-1 .77 Not Available [facility] ([facility]) [address] [place], [address], 08/09/2024 03:37:28 08/03/20 24 08/04/2024 LIPID PANEL WITH LDL/H DL RATIO cholesterol, total 215 mg/dL 100-19 9 above high normal Not Available [facility] ([facility]) [address] [place], [address], 08/09/2024 03:37:30 08/03/20 24 08/04/2024 LIPID PANEL WITH LDL/H DL RATIO triglyceride s 183 mg/dL 0-149 above high normal Not Available [facility] ([facility]) [address] [place], [address], 08/09/2024 03:37:30 08/03/20 24 08/04/2024 LIPID PANEL WITH LDL/H DL RATIO HDL cholesterol 33 mg/dL >39 below low normal Not Available [facility] ([facility]) [address] [place], [address], 08/09/2024 03:37:30 08/03/20 24 08/04/2024 LIPID PANEL WITH LDL/H DL RATIO VLDL cholesterol leobardo 33 mg/dL 5-40 Not Available [facility] ([facility]) [address] [facility], [place], [address], 08/09/2024 03:37:30 08/03/20 24 08/04/2024 LIPID PANEL WITH LDL/H DL RATIO LDL chol calc ([facility]) 149 mg/dL 0-99 above high normal Not Available [facility] ([facility]) [address] [facility], [place], [address], 08/09/2024 03:37:30 08/03/20 24 08/04/2024 LIPID PANEL WITH LDL/H DL RATIO LDL/HDL ratio 4.5 ratio 0.0-3. 6 above high normal LDL/H DL Ratio Men Women 1/2 Avg.R isk 1.0 1.5 Avg.R isk 3.6 3.2 2X Avg.R isk 6.2 5.0 3X Avg.R isk 8.0 6.1 Not Available [facility] ([facility]) [address] [place], [address], 08/09/2024 03:37:30 08/03/20 24 08/04/2024 COMP. METAB OLIC PANEL (14) glucose 106 mg/dL 70-99 above high normal Not Available [facility] ([facility]) [address] [place], [address], 08/09/2024 03:37:31 08/03/20 24 08/04/2024 COMP. METAB OLIC PANEL (14) BUN 13 mg/dL 6-24 Not Available [facility] ([facility]) [address] [place], [address], 08/09/2024 03:37:31 08/03/20 24 08/04/2024 COMP. METAB OLIC PANEL (14) creatinine 1.05 mg/dL 0.76-1 .27 Not Available [facility] ([facility]) [address] [place], [address], 08/09/2024 03:37:31 08/03/20 24 08/04/2024 COMP. METAB OLIC PANEL (14) eGFR 85 mL/mi n/1.7 3 >59 Not Available [facility] ([facility]) [address] [facility], [place], [address], 08/09/2024 03:37:31 08/03/20 24 08/04/2024 COMP. METAB OLIC PANEL (14) BUN/creatini ne ratio 12 9-20 Not Available [facility] ([facility]) [address] [facility], [place], [address], 08/09/2024 03:37:31 08/03/20 24 08/04/2024 COMP. METAB OLIC PANEL (14) sodium 138 mmol/ L 134-14 4 Not Available [facility] ([facility]) [address] [facility], [place], [address], 08/09/2024 03:37:31 08/03/20 24 08/04/2024 COMP. METAB OLIC PANEL (14) potassium 4.7 mmol/ L 3.5-5. 2 Not Available [facility] ([facility]) [address] [facility], [place], [address], 08/09/2024 03:37:31 08/03/20 24 08/04/2024 COMP. METAB OLIC PANEL (14) chloride 102 mmol/ L 96-106 Not Available [facility] ([facility]) [address] [facility], [place], [address], 08/09/2024 03:37:31 08/03/20 24 08/04/2024 COMP. METAB OLIC PANEL (14) carbon dioxide, total 26 mmol/ L 20-29 Not Available [facility] ([facility]) [address] [facility], [place], [address], 08/09/2024 03:37:31 08/03/20 24 08/04/2024 COMP. METAB OLIC PANEL (14) calcium 9.2 mg/dL 8.7-10 .2 Not Available [facility] ([facility]) [address] [place], [address], 08/09/2024 03:37:31 08/03/20 24 08/04/2024 COMP. METAB OLIC PANEL (14) protein, total 7.0 g/dL 6.0-8. 5 Not Available [facility] ([facility]) [address] [facility], [place], [address], 08/09/2024 03:37:31 08/03/20 24 08/04/2024 COMP. METAB OLIC PANEL (14) albumin 4.3 g/dL 3.8-4. 9 Not Available [facility] ([facility]) [address], [place], [address], 08/09/2024 03:37:31 08/03/20 24 08/04/2024 COMP. METAB OLIC PANEL (14) globulin, total 2.7 g/dL 1.5-4. 5 Not Available [facility] ([facility]) [address] [facility] [place], [address], 08/09/2024 03:37:31 08/03/20 24 08/04/2024 COMP. METAB OLIC PANEL (14) bilirubin, total 0.7 mg/dL 0.0-1. 2 Not Available [facility] ([facility]) [address] [facility] [place], [address], 08/09/2024 03:37:31 08/03/20 24 08/04/2024 COMP. METAB OLIC PANEL (14) alkaline phosphatase 72 IU/L 44-121 Not Available [facility] ([facility]) [address] [facility], [place], [address], 08/09/2024 03:37:31 08/03/20 24 08/04/2024 COMP. METAB OLIC PANEL (14) AST (SGOT) 25 IU/L 0-40 Not Available [facility] ([facility]) [address] [place], [address], 08/09/2024 03:37:31 08/03/2008/04/2024 COMP. METAB OLIC PANEL (14) ALT (SGPT) 26 IU/L 0-44 Not Available [facility] ([facility]) [address] [place], [address], 08/09/2024 03:37:31 08/03/20 24 08/04/2024 VITAM IN B12 AND FOLAT E vitamin B12 465 pg/mL 232-12 45 Not Available [facility] ([facility]) [address] [facility] [place], [address], 08/09/2024 03:37:32 08/03/2008/04/2024 VITAM IN B12 AND FOLAT E folate (folic acid), serum 5.0 NG/mL >3.0 A serum folat e lashonda ntrat ion of less than 3.1 ng/mL is consi dered to repre sent clini leobardo defic iency . Not Available [facility] ([facility]) [address] [facility] [place], [address], 08/09/2024 03:37:32 08/03/20 24 08/04/2024 HEMOG LOBIN A1C hemoglobin A1C 5.9 % 4.8-5. 6 above high normal Predi abete s: 5.7 - 6.4 Diabe omar: >6.4 Glyce hardy contr ol for adult s with diabe omar: <7.0 Not Available [facility] ([facility]) [address] [facility] [place], [address], 08/09/2024 03:37:34 08/03/20 24 08/04/2024 INSUL IN insulin 23.5 uIU/m L 2.6-24 .9 Not Available [facility] ([facility]) [address] [facility] [place], [address], 08/09/2024 03:37:35 08/03/20 24 08/04/2024 CBC WITH DIFFE RENTI AL/PL ATELE T WBC 5.1 x10e3 /uL 3.4-10 .8 Not Available [facility] ([facility]) [address] [facility], [place], [address], 08/09/2024 03:37:36 08/03/2008/04/2024 CBC WITH DIFFE RENTI AL/PL ATELE T RBC 4.76 x10e6 /uL 4.14-5 .80 Not Available [facility] ([facility]) [address] [facility], [place], [address], 08/09/2024 03:37:36 08/03/2008/04/2024 CBC WITH DIFFE RENTI AL/PL ATELE T hemoglobin 14.0 g/dL 13.0-1 7.7 Not Available [facility] ([facility]) [address] [facility], [place], [address], 08/09/2024 03:37:36 08/03/20 24 08/04/2024 CBC WITH DIFFE RENTI AL/PL ATELE T hematocrit 43.3 % 37.5-5 1.0 Not Available [facility] ([facility]) [address] [facility], [place], [address], 08/09/2024 03:37:36 08/03/20 24 08/04/2024 CBC WITH DIFFE RENTI AL/PL ATELE T MCV 91 fL 79-97 Not Available [facility] ([facility]) [address] [place], [address], 08/09/2024 03:37:36 08/03/20 24 08/04/2024 CBC WITH DIFFE RENTI AL/PL ATELE T MCH 29.4 pg 26.6-3 3.0 Not Available [facility] ([facility]) [address] [facility], [place], [address], 08/09/2024 03:37:36 08/03/20 24 08/04/2024 CBC WITH DIFFE RENTI AL/PL ATELE T MCHC 32.3 g/dL 31.5-3 5.7 Not Available [facility] ([facility]) [address] [facility], [place], [address], 08/09/2024 03:37:36 08/03/2008/04/2024 CBC WITH DIFFE RENTI AL/PL ATELE T RDW 12.6 % 11.6-1 5.4 Not Available [facility] ([facility]) [address] [facility], [place], [address], 08/09/2024 03:37:36 08/03/2008/04/2024 CBC WITH DIFFE RENTI AL/PL ATELE T platelets 221 x10e3 /uL 150-45 0 Not Available [facility] ([facility]) [address] [facility], [place], [address], 08/09/2024 03:37:36 08/03/20 24 08/04/2024 CBC WITH DIFFE RENTI AL/PL ATELE T neutrophils 70 % notest ab. Not Available [facility] ([facility]) [address] [facility], [place], [address], 08/09/2024 03:37:36 08/03/20 24 08/04/2024 CBC WITH DIFFE RENTI AL/PL ATELE T lymphs 21 % notest ab. Not Available [facility] ([facility]) [address] [facility], [place], [address], 08/09/2024 03:37:36 08/03/20 24 08/04/2024 CBC WITH DIFFE RENTI AL/PL ATELE T monocytes 6 % notest ab. Not Available [facility] ([facility]) [address] [facility], [place], [address], 08/09/2024 03:37:36 08/03/20 24 08/04/2024 CBC WITH DIFFE RENTI AL/PL ATELE T eos 3 % notest ab. Not Available [facility] ([facility]) [address] [facility], [place], [address], 08/09/2024 03:37:36 08/03/20 24 08/04/2024 CBC WITH DIFFE RENTI AL/PL ATELE T basos 0 % notest ab. Not Available [facility] ([facility]) [address] [facility], [place], [address], 08/09/2024 03:37:36 08/03/2008/04/2024 CBC WITH DIFFE RENTI AL/PL ATELE T neutrophils (absolute) 3.5 x10e3 /uL 1.4-7. 0 Not Available [facility] ([facility]) [address] [facility], [place], [address], 08/09/2024 03:37:36 08/03/20 24 08/04/2024 CBC WITH DIFFE RENTI AL/PL ATELE T lymphs (absolute) 1.1 x10e3 /uL 0.7-3. 1 Not Available [facility] ([facility]) [address] [facility], [place], [address], 08/09/2024 03:37:36 08/03/20 24 08/04/2024 CBC WITH DIFFE RENTI AL/PL ATELE T monocytes(ab solute) 0.3 x10e3 /uL 0.1-0. 9 Not Available [facility] ([facility]) [address] [facility], [place], [address], 08/09/2024 03:37:36 08/03/20 24 08/04/2024 CBC WITH DIFFE RENTI AL/PL ATELE T eos (absolute) 0.2 x10e3 /uL 0.0-0. 4 Not Available [facility] ([facility]) [address] [place], [address], 08/09/2024 03:37:36 08/03/20 24 08/04/2024 CBC WITH DIFFE RENTI AL/PL ATELE T baso (absolute) 0.0 x10e3 /uL 0.0-0. 2 Not Available [facility] ([facility]) [address] [facility], [place], [address], 08/09/2024 03:37:36 08/03/20 24 08/04/2024 CBC WITH DIFFE RENTI AL/PL ATELE T immature granulocytes 0 % notest ab. Not Available [facility] ([facility]) [address] [facility], [place], [address], 08/09/2024 03:37:36 08/03/20 24 08/04/2024 CBC WITH DIFFE RENTI AL/PL ATELE T immature grans (abs) 0.0 x10e3 /uL 0.0-0. 1 Not Available [facility] ([facility]) [address] [facility], [place], [address], 08/09/2024 03:37:36 08/03/2008/04/2024 PROST ATE-S PECIF IC AG prostate specific Ag 0.4 NG/mL 0.0-4. 0 Tristan ECLIA metho dolog [...] t be inter prete d as absol ct evide nce of the prese nce or absen ce of gloria goodwin disea se. Not Available [facility] ([facility]) [address] [facility], [place], [address], 08/09/2024 03:37:37 Result Notes None recorded. Problems Name Problem SNOMED Code Status Onset Date Resolution Date Notes Provider Name and Address Organization Details Recorded Time Body mass index 30+ - obesity 012136132 Active 2023 Adalberto Saini MA null, [place] [facility] 4 16:25:36 Cardiac defibrillator in situ 889080172 Active 2023 ISABEL De Oliveira Attn: Sobeida alexander,[address], [place], [address], [facility] - [facility] 4 16:47:29 Obesity 656514576 Active 2023 ISABEL De Oliveira Attn: Sobeida alexander,[address] [place], [address], [facility] - [facility] 4 16:47:30 Family history of Cardiomyopathy 634542952 Active 2023 ISABEL De Oliveira Attn: Sobeida g,[address], [place], [address], [facility] - [facility] 4 16:50:43 Benign essential hypertension 9620946 Active 2023 ISABEL De Oliveira Attn: Sobeida g,[address] [place], [address], [facility] - [facility] 4 17:03:34 Long-term drug therapy Active 2023 ISABEL De Oliveira Attn: Sobeida alexander,[address] [place], [address], [facility] - [facility] 4 09:14:26 Problem Notes None recorded. Procedures Surgical History Date Name Laterality Status Provider Name and Address Organization Details Recorded Time Back Surgery completed Adalberto Saini MA [facility] 07/31/2024 16:25:24 Defibrillator completed Adalberto Saini MA [facility] 07/31/2024 16:25:27 Imaging Results None recorded. Procedure Notes None recorded. Medical Equipment None Reported. Allergies No known drug allergies Medications Name Sig Start Date Stop Date Status Note LastModified by Organization Details LastModified Time hydrocodone 5 mg-acetamin ophen 325 mg tablet TAKE 1 TABLET BY MOUTH EVERY 4 HOURS FOR 3 DAYS NEEDED FOR PAIN 07/31 completed Not Available Not Available Not Available spironolact one 25 mg tablet active Not Available Not Available Not Available carvedilol 3.125 mg tablet TAKE 1 TABLET BY MOUTH EVERY 12 HOURS -TAKE WITH A SNACK/DELONTE D active Not Available Not Available No t Available metronidazo le 0.75 % topical gel APPLY TO AREAS PRONE TO REDNESS, BREAKOUTS TWICE A DAY active Not Available Not Available No t Available clindamycin 1 % lotion APPLY TO AFFECTED AREA ON CHEST ONCE DAILY 07/31 completed Not Available Not Available Not Available Entresto 24 mg-26 mg tablet TAKE 1 TABLET BY MOUTH TWICE A DAY active Not Available Not Available No t Available Vitals Date Recorded Respiratory rate Body weight Body mass index (BMI) Body height Oxygen saturation Oxygen saturation in Arterial blood by Pulse oximetry Heart rate Systolic blood pressure Diastolic blood pressure Provider Name and Address Organization Details Last Updated DateTime 4 18 /min 889846. 62 g 35.5 kg/m2 180.34 cm 96 % 96 % 98 /min 130 mm[Hg] 78 mm[Hg] Adalberto Saini MA [facility] 16:27:32 Social History Question Answer Notes LastModified by Organizat ion Details LastModified Time Tobacco Smoking Status Never Smoker Adalberto Saini MA null, [facility] 07/31/2024 16:24:58 Do You Have An Advance Directive? No Information n ot available 07/31/2024 What Is Your Level Of Alcohol Consumption? None Information not available 07/31/2024 Are You Blind Or Do You Have Difficulty Seeing? Yes Information n ot available 07/31/2024 What Is Your Level Of Caffeine Consumption? Moderate Information not available 07/31/2024 In The 14 Days Before Symptom Onset, Have You Had Close Contact With A Laboratory-confirm ed COVID-19 While That Case Was Ill? No Information n ot available 07/31/2024 In The 14 Days Before Symptom Onset, Have You Had Close Contact With A Person Who Is Under Investigation For COVID-19 While That Person Was Ill? No Information not available 07/31/2024 Have You Been To An Area Known To Be High Risk For COVID-19? No Information not available 07/31/2024 Are You Deaf Or Do You Have Serious Difficulty Hearing? No Information not available 07/31/2024 What Type Of Diet Are You Following? REGULAR Information n ot available 07/31/2024 Are There Any Guns Present In Your Home? No Information not available 07/31/2024 What Was The Date Of Your Most Recent Tobacco Screening? 07/31/2024 Information not available 07/31/2024 Do You Use Your Seat Belt Or Car Seat Routinely? Yes Information not available 07/31/2024 Do You Have Smoke And Carbon Monoxide Detectors In Your Home? Yes Information not available 07/31/2024 Do You Feel Stressed (tense, Restless, Nervous, Or Anxious, Or Unable To Sleep At Night)? [id number] Information not available 07/31/2024 Do You Use Any Illicit Or Recreational Drugs? No Information not available 07/31/2024 Do You Use Sunscreen Routinely? No Information not available 07/31/2024 Has Tobacco Cessation Counseling Been Provided? No Information not available 07/31/2024 Do You Or Have You Ever Used Any Other Forms Of Tobacco Or Nicotine? No Information not available 07/31/2024 Sex: Male Functional Status Question Answer Note LastModified by Organization D etails LastModified Time Are you able to care for yourself? Yes Information n ot available 07/31/2024 What is your exercise level? None Information not available 07/31/2024 Mental Status None recorded. Family History Relationship Description Onset Age of this Age Resolved Age Notes LastModified by Organization Details LastModified Time Father Heart disease [email or web address] Not available 2023 16:31:29 Father Hypertensive disorder [email or web address] Not available 2023 16:31:37 Sister Heart disease [email or web address] Not available 2023 16:31:29 Sister Hypertensive disorder [email or web address] Not available 2023 16:31:37 Brother Heart disease [email or web address] Not available 2023 16:31:29 Brother Hypertensive disorder [email or web address] Not available 2023 16:31:37 Medical History Condition Response Coronary Artery Disease N Other N Atrial Fibrillation N High Blood Pressure N Thyroid Problems N Kidney or Bladder Problems N Depression N COPD N Blood Clots N GI Problems N Have you had a mammogram in the last yea r? N Skin Problems N Anemia N Heart Attack ([place]) N Diabetes N Anxiety Disorder N Muscle, Joint, or Bone Problems N Seizures/Epilepsy N Have you had a colonoscopy in the last 1 0 years? N Acid Reflux (GERD) N Cancer N Stroke N Allergies N Asthma N Have you had a PSA blood test in the las t year? N High Cholesterol N Hepatitis N Liver Disease N Headaches N Osteoporosis N Heart Failure N Past Encounters Encounter ID Performer Location Encounter Start Date Encounter Closed Date Diagnosis/Indication Diagnosis SNOMED-CT Code Diagnosis ICD10 Code Diagnosis Note [id number] ISABEL De Oliveira [facility] [place] [address] [place] [address] 07/31/2024 15:30:45 08/09/2024 11:54:11 Body mass index 30+ - obesity 350941080 Z68.35 BMI is 35.5. Screening insulin level fasting ordered Obesity 815912834 E66.9 discussed healthy diet, exercise, controllin g carbohydra omar and added sugars in the diet Cardiac de fibrillator in situ 317881339 Z95.810 Patient recently has cardiac defibrilla tor in place with incision site clean dry and intact Family his tory of Cardiomyopathy 620229581 Z82.49 Family history is strong for cardiomyop athy with a few cases of sudden and a younger sister that went into cardiac arrest and patient testing positive for gene at risk Benign ess ential hypertension 2260392 I10 Patient's blood pressure is well-maint ained on regimen by Cardiology Screening for malignant neoplasm of prostate 854706222 Z12.5 Annual PSA is due Cholesterol screening 27 5628375 Z13.220 Fasting lipid panel due Diabetes m ellitus screening 970678444 Z13.1 Diabetes screening due Long-term drug therapy 369916768 Z79.891 Routine CBC, CMP, TSH T4 and vitamins ordered Endocrine/ metabolic screening 568180446 Z13.228 Screening testostero ne ordered Adult heal th examination 245155672 Z00.01 Wellness exam completed Health Concerns Section Related Observation LastModified by Organization Detai ls LastModified Time None Recorded Concern Status LastModified by Organization Details LastModified Time None Recorded Advance Directives Directive N: Payers Encounter Date Sequence Insurance Name Policy Number Policy Lynch Covered Member ID Lynch Member ID Guarantor Name 07/31/2024 1 [place] [id number] Dk Quinones [id number] Dk Quinones Notes Date Note Type Note Provider Name and Address Organization Details Recorded Time 4 text/html HypertensionReported bypatient.Notes:Patient is currently taking Entresto 24 mg/26 mg twice daily and carvedilol 3.125 mg twice daily that is managed by Cardiology. They have also added spironolactone 25 mg daily. Defibrillator placed just over a week ago . 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 strong fam hx of such. ISABEL De Oliveira Attn: Accounting,[address] [place], [address], [facility] 08/20/2024 09:15:02
[2025-01-25 16:04] VITALS: BP 133/89; PULSE 93; RESP 18; TEMP 36.6; O2SAT 100
--- NOTE | 2025-01-25 16:04 | ED_ITS ---
HPI - Back Pain/Injury General Chief Complaint: Back Pain/Injury <Nicolasa Ingram PA-C - Last Filed: 01/25/25 18:49> Stated Complaint: lower back/left flank <LACIE Herrera Last Filed: 01/25/25 18:49> Time Seen by Provider: 01/25/25 16:04 <LACIE Herrera Last Filed: 01/25/25 18:49> Focused HPI: Patient is a 54 y/o male who presents to the ED with c/o L lower back pain. Patient reports he began having pain in his left lower back/flank region today. Is scheduled to have back surgery 02/06, but typically chronic pain is more on R side. Hx of previous kidney stones, states current pain does feel similar. Patient has not taken anything for pain today. Reports nausea. Denies abdominal pain, vomiting, fevers, hematuria, dysuria. Denies any recent heavy lifting or strenuous activity. GENERAL: Well-appearing, obese with BMI of 35.4, and in no acute distress. HEAD: Normocephalic, atraumatic. CHEST: Clear to auscultation. ?No respiratory distress. HEART: Regular rate and rhythm.? NEURO: ?Alert and oriented x3. Patient screened in triage and initial orders placed.? ?Additional care and disposition to be based upon?diagnostic testing and treatment. <Nicolasa Ingram PA-C - Last Filed: 01/25/25 18:49> Source: patient <LACIE Herrera Last Filed: 01/25/25 18:49> Mode of arrival: ambulatory <LACIE Herrera Last Filed: 01/25/25 18:49> Limitations: no limitations <LACIE Herrera Last Filed: 01/25/25 18:49> History of Present Illness HPI Narrative: I agree with the assessment and documentation of Nicolasa Ingram PA-C. <Nohemy Magana APRN - Last Filed: 01/25/25 20:05> Related Data Home Medications: Home Medications ?Medication ?Instructions ?Recorded ?Confirmed ?Last Taken ?Type carvedilol 6.25 mg tablet 6.25 mg PO Q12H 12/06/24 12/06/24 Unknown History sacubitril 24 mg-valsartan 26 mg 1 tablet PO BID 12/06/24 12/06/24 Unknown History tablet (Entresto) <Nicolasa Ingram PA-C - Last Filed: 01/25/25 18:49> Allergies/Adverse Reactions: Allergies Allergy/AdvReac Type Severity Reaction Status Date / Time No Known Allergies Allergy Verified 01/25/25 16:00 <Nicolasa Ingram PA-C - Last Filed: 01/25/25 18:49> Review of Systems 2 Review of Systems: All systems reviewed & are unremarkable except as noted in HPI and below <Nohemy Magana APRN - Last Filed: 01/25/25 20:05> [facility] Past Medical History Medical History: Medical History Essential hypertension 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 Chronic low back pain with right-sided sciatica BMI 36.0-36.9,adult Obesity (BMI 30-39.9) Obstructive sleep apnea Encounter for wellness examination in adult Encounter for prostate cancer screening Cardiac defibrillator in place (~2023) Arm fracture Kidney stones <LACIE Herrera Last Filed: 01/25/25 18:49> Surgical History Surgical History: Surgical History History of back surgery <Nicolasa Ingram PA-C - Last Filed: 01/25/25 18:49> Family History Family History: Family History Mother Small cell lung cancer Father Congestive heart failure Alcoholism Heart disease Hypertension <Nicolasa Ingram PA-C - Last Filed: 01/25/25 18:49> Social History Social History: Social History Smoking status: Never smoker Alcohol intake: former Substance use: never Substance use type: does not use Spiritual care concerns: No <LACIE Herrera Last Filed: 01/25/25 18:49> Exam 2 Narrative: GENERAL: Well appearing, well-nourished, non-toxic, in no acute distress. HEAD: Normocephalic, atraumatic. NECK: Supple. No adenopathy, no masses. RESPIRATORY: Airway patent, respirations nonlabored. Clear to auscultation bilaterally, no rales, rhonchi, wheezing. CARDIOVASCULAR: Regular rate and rhythm without murmurs, rubs, or gallops. Peripheral pulses 2+ and equal bilaterally. ABDOMINAL: Soft, nontender, nondistended, no hepatosplenomegaly. Normoactive BS. MUSCULOSKELETAL: Moves all extremities. Strength/ROM intact without gross deformities. SKIN: Warm, dry, normal color. No rashes. NEURO: A&O X3. Speech clear. Cranial nerves II-XII intact. No ataxic movements. PSYCHIATRIC: Appropriate mood and affect. Normal interaction. <Nohemy Magana APRN - Last Filed: 01/25/25 20:05> Course Vital Signs Vital signs: Vital Signs Temperature 36.6 C 01/25/25 16:04 Pulse Rate 93 01/25/25 16:04 Respiratory Rate 18 01/25/25 16:04 Blood Pressure 133/89 01/25/25 16:04 Pulse Oximetry 100 01/25/25 16:04 Oxygen Delivery Room Air 01/25/25 16:04 Temperature 36.6 C 01/25/25 16:04 Pulse Rate 93 01/25/25 16:04 Respiratory Rate 18 01/25/25 16:04 Blood Pressure 133/89 01/25/25 16:04 Pulse Oximetry 100 01/25/25 16:04 Oxygen Delivery Room Air 01/25/25 16:04 <Nicolasa Ingram PA-C - Last Filed: 01/25/25 18:49> Vital Signs Temperature 36.6 C 01/25/25 16:04 Pulse Rate 93 01/25/25 16:04 Respiratory Rate 18 01/25/25 16:04 Blood Pressure 133/89 01/25/25 16:04 Pulse Oximetry 100 01/25/25 16:04 Oxygen Delivery Room Air 01/25/25 16:04 Temperature 36.6 C 01/25/25 16:04 Pulse Rate 93 01/25/25 16:04 Respiratory Rate 18 01/25/25 16:04 Blood Pressure 133/89 01/25/25 16:04 Pulse Oximetry 100 01/25/25 16:04 Oxygen Delivery Room Air 01/25/25 16:04 <Nohemy Magana APRN - Last Filed: 01/25/25 20:05> MDM - Back Pain/Injury MDM Narrative Medical decision making narrative: MSE by ALEKSANDRA in triage. <Nicolasa Ingram PA-C - Last Filed: 01/25/25 18:49> MSE by ALEKSANDRA in triage. Patient is a 54 y/o male who presents to the ED with c/o L lower back pain. Patient reports he began having pain in his left lower back/flank region today. Is scheduled to have back surgery 02/06, but typically chronic pain is more on R side. Hx of previous kidney stones, states current pain does feel similar. Patient has not taken anything for pain today. Reports nausea. Denies abdominal pain, vomiting, fevers, hematuria, dysuria. Denies any recent heavy lifting or strenuous activity. Labs Ordered: CBC, BMP, UA Imaging Ordered: CT lumbar spine, CT abdomen pelvis Medications Ordered: Toradol 60 mg IM, prednisone 40 mg p.o. Results: Patient's CT scan indicates No acute osseous abnormality. Postoperative changes in the lower lumbar area. Multilevel degenerative disc bulge. Nonobstructing bilateral nephrolithiasis. Diagnosis: Acute on chronic back pain Consults: Orthopedics (patient is already established outpatient) Patient Education/Shared MDM: Results shared with patient. He endorses improvement following medication administration. Patient strongly advised to maintain hydration status upon discharge and follow-up with his orthopedic surgeon as soon as possible. He will be discharged home with a prescription for Toradol and Prednisone. Strict return precautions provided. Patient verbalized understanding is in agreement with plan. Vital signs stable at time of discharge. All questions answered. <Nohemy Magana APRN - Last Filed: 01/25/25 20:05> Differential Diagnosis Differential diagnosis: Likely lumbar radiculopathy, strain of lumbar region, pyelonephritis, thoracic back pain and other (kidney stone) <Nohemy Magana APRN - Last Filed: 01/25/25 20:05> Lab Data Attestation: I reviewed the patient's lab results. <Nohemy Magana APRN - Last Filed: 01/25/25 20:05> Result diagrams: 01/25/25 17:44 01/25/25 17:44 <Nicolasa Ingram PA-C - Last Filed: 01/25/25 18:49> Labs: Lab Results 01/25/25 01/25/25 Range/Units 17:44 18:12 WBC 5.0 (4.5-10.0) K/mm3 RBC 4.62 (4.6-6.20) M/mm3 Hgb 13.9 L (14.0-18.0) g/dL Hct 41.5 L (42.0-52.0) % MCV 89.8 (80-100) fl MCH 30.1 (26-34) pg MCHC 33.5 (32-36) g/dl RDW 13.4 (11.5-14.5) % Plt Count 175 (150-375) k/mm3 MPV 9.7 (7.4-10.4) fl Immature Gran % (Auto) 0.2 (0-0.5) % Neut % (Auto) 56.5 (45.5-73.1) % Lymph % (Auto) 27.8 (18.3-44.2) % Peach % (Auto) 10.5 H (2.6-8.5) % Eos % (Auto) 4.4 (0-4.4) % Baso % (Auto) 0.6 (0.2-1.2) % Lymph # (Auto) 1.38 (0.9-3.2) K/mm3 Peach # (Auto) 0.5 (0.1-0.6) K/mm3 Eos # (Auto) 0.2 (0-0.3) K/mm3 Baso # (Auto) 0.0 (0.0-0.1) K/mm3 Abs Immat Gran (auto) 0.01 (0.00-0.031) K/mm3 Absolute Neuts (auto) 2.8 (1.3-6.7) K/mm3 Absolute Nucleated RBC 0.000 (0.0-0.012) K/mm3 Nucleated RBC % 0.0 (0.0-0.2) % Sodium 137 (137-145) mmol/L Potassium 4.1 (3.4-5.0) mmol/L Chloride 102 (98-107) mmol/L Carbon Dioxide 25 (22-30) mmol/L Anion Gap 10 (4-12) mmol/L BUN 16 (9-20) mg/dL Creatinine 0.89 (0.7-1.3) mg/dL Estim Creat Clear Calc 107 ml/min Estimated GFR > 60 (59 - ) Glucose 109 (65-110) mg/dL Calcium 9.1 (8.4-10.2) mg/dL Urine Color Yellow (Yellow) Urine Appearance Clear (Clear) Urine pH 5.5 (5.0-9.0) Ur Specific Delton 1.022 (1.001-1.035) Urine Protein Negative (Negative) mg/dL Urine Glucose (UA) Negative (Negative) mg/dL Urine Ketones Negative (Negative) mg/dL Ur Blood (Man) Negative (Negative) Urine Nitrate Negative (Negative) Urine Bilirubin Negative (Negative) Urine Urobilinogen 1.0 (<2.0) mg/dL Leukocyte Esterase Rfl Negative (Negative) AIMEE/UL <Nicolasa Ingram PA-C - Last Filed: 01/25/25 18:49> Lab Results 01/25/25 01/25/25 Range/Units 17:44 18:12 WBC 5.0 (4.5-10.0) K/mm3 RBC 4.62 (4.6-6.20) M/mm3 Hgb 13.9 L (14.0-18.0) g/dL Hct 41.5 L (42.0-52.0) % MCV 89.8 (80-100) fl MCH 30.1 (26-34) pg MCHC 33.5 (32-36) g/dl RDW 13.4 (11.5-14.5) % Plt Count 175 (150-375) k/mm3 MPV 9.7 (7.4-10.4) fl Immature Gran % (Auto) 0.2 (0-0.5) % Neut % (Auto) 56.5 (45.5-73.1) % Lymph % (Auto) 27.8 (18.3-44.2) % Peach % (Auto) 10.5 H (2.6-8.5) % Eos % (Auto) 4.4 (0-4.4) % Baso % (Auto) 0.6 (0.2-1.2) % Lymph # (Auto) 1.38 (0.9-3.2) K/mm3 Peach # (Auto) 0.5 (0.1-0.6) K/mm3 Eos # (Auto) 0.2 (0-0.3) K/mm3 Baso # (Auto) 0.0 (0.0-0.1) K/mm3 Abs Immat Gran (auto) 0.01 (0.00-0.031) K/mm3 Absolute Neuts (auto) 2.8 (1.3-6.7) K/mm3 Absolute Nucleated RBC 0.000 (0.0-0.012) K/mm3 Nucleated RBC % 0.0 (0.0-0.2) % Sodium 137 (137-145) mmol/L Potassium 4.1 (3.4-5.0) mmol/L Chloride 102 (98-107) mmol/L Carbon Dioxide 25 (22-30) mmol/L Anion Gap 10 (4-12) mmol/L BUN 16 (9-20) mg/dL Creatinine 0.89 (0.7-1.3) mg/dL Estim Creat Clear Calc 107 ml/min Estimated GFR > 60 (59 - ) Glucose 109 (65-110) mg/dL Calcium 9.1 (8.4-10.2) mg/dL Urine Color Yellow (Yellow) Urine Appearance Clear (Clear) Urine pH 5.5 (5.0-9.0) Ur Specific Delton 1.022 (1.001-1.035) Urine Protein Negative (Negative) mg/dL Urine Glucose (UA) Negative (Negative) mg/dL Urine Ketones Negative (Negative) mg/dL Ur Blood (Man) Negative (Negative) Urine Nitrate Negative (Negative) Urine Bilirubin Negative (Negative) Urine Urobilinogen 1.0 (<2.0) mg/dL Leukocyte Esterase Rfl Negative (Negative) AIMEE/UL <Nohemy Magana, ALMA - Last Filed: 01/25/25 20:05> Imaging Data Attestation: I personally reviewed and interpreted this imaging study as follows: < Nohemy Magana APRN - Last Filed: 01/25/25 20:05> Radiologist's impression: Impressions Abdomen/Pelvis CT 01/25/25 16:58 IMPRESSION: 1. Nonobstructing bilateral nephrolithiasis. Lumbar Spine CT 01/25/25 19:32 IMPRESSION: No acute osseous abnormality. Postoperative changes in the lower lumbar area. Multilevel degenerative disc bulge. <Nohemy Magana APRN - Last Filed: 01/25/25 20:05> Discharge Plan Discharge Clinical Impression: Lumbar radiculopathy, Acute exacerbation of chronic low back pain <LACIE Herrera Last Filed: 01/25/25 18:49> Patient Disposition: Home, Self-Care <LACIE Herrera Last Filed: 01/25/25 18:49> Condition: Stable <LACIE Herrera Last Filed: 01/25/25 18:49> Instructions: Antibiotic Form, Acute Low Back Pain (ED), Lumbar Radiculopathy (ED) <LACIE Herrera Last Filed: 01/25/25 18:49> Additional Instructions: Please return to the ER with any worsening symptoms. Follow-up with your orthopedic surgeon as soon as possible. Take all medications as prescribed, including regularly scheduled medications. <LACIE Herrera Last Filed: 01/25/25 18:49> Patient Language: Persian <LACIE Herrera Last Filed: 01/25/25 18:49> Prescriptions: New ketorolac 10 mg tablet 10 mg PO Q8H PRN (Reason: pain) Qty: 30 0RF Rx Instructions: maximum total duration of 5 days from all oral, intranasal, or parenteral formulations prednisone 50 mg tablet 50 mg PO DAILY Qty: 4 0RF No Action carvedilol 6.25 mg tablet 6.25 mg PO Q12H Patient Comments: prescribed by montessori paraprofessional Rx Instructions: must administer with a meal/food sacubitril-valsartan [Entresto] 24-26 mg tablet 1 tablet PO BID Patient Comments: prescribed by montessori paraprofessional <Nicolasa Ingram PA-C - Last Filed: 01/25/25 18:49> Follow-up/Referrals: PHYSICIAN NOT ON STAFF,NONSTAFF [Primary Care Provider] - <Nicolasa Ingram PA-C - Last Filed: 01/25/25 18:49> Stand Alone Forms: Work/School Release IP <Nicolasa Ingram PA-C - Last Filed: 01/25/25 18:49> Time of Disposition: 20:05 <Nicolasa Ingram PA-C - Last Filed: 01/25/25 18:49> 20:05 <Nohemy Magana APRN - Last Filed: 01/25/25 20:05>
[2025-01-25] MEDS: HYDROcodone/acetaminophen (*CRX) 5-325 MG TABLET 1 TAB PO (17:17)
[2025-01-25] MEDS: ONDANSETRON HCL ODT 4 MG TABLET PO (17:17)
[2025-01-25 17:48] LABS: Basophils Percent Auto 0.6 % (0.2-1.2); Eosinophils Absolute Auto 0.2 K/mm3 (0-0.3); Eosinophils Percent Auto 4.4 % (0-4.4); Hematocrit 41.5 % (42.0-52.0); Hemoglobin 13.9 g/dL (14.0-18.0); Immature Granulocyte Absolute 0.01 K/mm3 (0.00-0.031); Immature Granulocyte Percent A 0.2 % (0-0.5); Lymphocytes Absolute Auto 1.38 K/mm3 (0.9-3.2); Lymphocytes Percent Auto 27.8 % (18.3-44.2); Mean Corpuscular HGB Conc 33.5 g/dl (32-36); Mean Corpuscular Hemoglobin 30.1 pg (26-34); Mean Corpuscular Volume 89.8 fl (80-100); Mean Platelet Volume 9.7 fl (7.4-10.4); Monocytes Absolute Auto 0.5 K/mm3 (0.1-0.6); Monocytes Percent Auto 10.5 % (2.6-8.5); Neutrophils Absolute Auto 2.8 K/mm3 (1.3-6.7); Neutrophils Percent Auto 56.5 % (45.5-73.1); Platelet Count Result 175 k/mm3 (150-375); Red Blood Count 4.62 M/mm3 (4.6-6.20); Red Cell Distribution Width 13.4 % (11.5-14.5)
--- OUTSIDE RECORDS SUMMARY | 2025-01-25 17:48 | XMS_ITS | Clinical Summary ---
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 Suspect [...] 12/11/2021 Assessment & Plan (12/11/2021 6:43 PM RN TRANSITIONAL): Resolved with IVF, likely dehydration. Acute sciatica 12/05/2021 Degeneration of lumbar intervertebral disc 12/05 History of thrombocytopenia 12/02/2021 At risk for obstructive sleep apnea 12/02/2021 Herniation of intervertebral disc between L5 and S1 11/30/2021 Overview (11/30/2021): Added automatically from request for surgery [id number] Neuroforaminal stenosis of lumbosacral spine Overview (11/13/2021): Added automatically from request for surgery [id number] Cerebral ventriculomegaly 07/14/2021 Acute respiratory failure with hypoxia 1 Obesity 07/14/2021 NICOLE (acute kidney injury) 07/14/2021 Acute hyponatremia 07/14/2021 Assessment & Plan (12/11/2021 6:44 PM RN TRANSITIONAL): Likely related to hypovolemia. Expect will improve [...] (02/20/2020): Added automatically from request for surgery [id number] Assessment & Plan (12/11/2021 6:40 PM RN TRANSITIONAL): S/p L5-S1 decompression, L5-S1 TLIF, L4-S1 PSF by Dr. Drake on 12/09. Defer management to orthopedic primary team. Lumbar disc herniation with radiculopathy 2019 Overview (02/20/2020): Added automatically from request for surgery [id number] Near syncope Delayed emergence from general anesthesia Encounters Date Type Department Care Team Description 01/18/2025 Orders Only [facility] Pre Anesthesia Testing [address] [place] [address] Farzad Anthony MD 01/17/2025 Telephone [facility] Pre Anesthesia Testing [address] [place] [address] Tracey Fischer RN 01/16/2025 2:30 PM CDT Pre-Admission Testing [facility] Pre Anesthesia Testing [address] [place] [phone] Preop testing (Primary Dx); Spinal stenosis, lumbar region, with neurogenic claudication; Lumbar radiculopathy 01/16/2025 2:15 PM CDT - 01/16/2025 11:59 PM CDT Hospital Encounter [facility] - Imaging [address] [place] [phone] Fusion of spine of lumbar region; 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, unspecified fracture morphology, subsequent encounter; Spinal stenosis of lumbar region, unspecified whether neurogenic claudication present; Lumbar radiculopathy Discharge Disposition: Discharge to home or self care 01/09/2025 Orders Only [facility] Orthopaedic Surgery [address] [place] [address] Office [facility] [address] [place] [address] Forrest Regan MD Fusion of spine of lumbar region (Primary Dx); 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, unspecified fracture morphology, subsequent encounter; Spinal stenosis of lumbar region, unspecified whether neurogenic claudication present; Lumbar radiculopathy 01/07/2025 3:00 PM CDT Office Visit [facility] Surgery [address] [place] [address] [address] [place] [phone] Forrest Regan MD 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, unspecified fracture morphology, subsequent encounter (Primary Dx); Fusion of spine of lumbar region; Spinal stenosis of lumbar region, unspecified whether neurogenic claudication present; Lumbar radiculopathy 01/07/2025 2:29 PM CDT - 01/07/2025 11:59 PM CDT Hospital Encounter [facility] [address] [place] [address] [address] [place] [address] Fusion of spine of lumbar region Discharge Disposition: Discharge to home or self care 12/19/2024 Telephone [facility] Orthopa[facility] Surgery [address] [place] [address] 6th [place] [address] [place] [address] Forrest Regan MD injection 12/05/2024 Telephone [facility] Orthopaedic Surgery [facility] 6th [place] [address] [place] [address] Forrest Regan MD injection follow up 11/28/2024 1:32 PM RN TRANSITIONAL - 11/28/2024 11:59 PM RN TRANSITIONAL Hospital Encounter [facility] [address] [place] [address] [facility] [address] [place] [address] Jojo Oviedo MD Radiculopathy of lumbar region (Primary Dx); Fusion of spine of lumbar region; Degenerative lumbar spinal stenosis; Lumbar radiculopathy Discharge Disposition: Discharge to home or self care 11/26/2024 Telephone [facility] [address] [place] [address] [facility] [address] [place] [address] Jojo Oviedo MD PMC Preprocedure 11/16/2024 Orders Only [facility] [address] [place] [address] [facility] [address] [place] [address] Jojo Oviedo MD Lumbar radiculopathy (Primary Dx) 11/15/2024 Telephone [facility] [address] [place] [address] [facility] [address] [place] [address] Jojo Oviedo MD Scheduling Appointments from Last [...] often do you attend chur ch or gnosticism services? More than 4 times per year 11/16/2023 Do you belong to any clubs o r organizations such as amish groups, unions, fraternal or athletic groups, or [...] place to sleep or slept in a [place] [facility] care facility (including now)? No 11/16/2023 Personal Safety Answer Date Recorded Have you ever been in or are you currently in a harmful physical or emotional relationship or is someone making you feel afraid or unsafe? Denies 11/16/2023 Sex and Gender Information Value Date Recorded Sex Assigned at Not on file Legal Sex Male 7:39 PM RN TRANSITIONAL Gender Identity Not on file Sexual Orientation Not on file Obstetrics History Last Filed Vital Signs Vital Sign Reading Time Taken Comments Blood Pressure 129/60 01/16/2025 2:36 PM CDT Pulse 84 01/16/2025 2:36 PM CDT Temperature 36.5 C (97.7 F) 11/28/2024 1:36 PM RN TRANSITIONAL Respiratory Rate 16 11/28/2024 3:21 PM RN TRANSITIONAL Oxygen Saturation 97% 01/16/2025 2:36 PM CDT Inhaled Oxygen Concentration - - Weight 115.7 kg (255 lb) 01/16/2025 2:36 PM CDT Height 180.3 cm (5' 11 ) 01/16/2025 2:36 PM CDT Body Mass Index 35.57 01/16/2025 2:36 PM CDT Plan of Treatment Upcoming Encounters Date Type Department Care Team (Latest Contact Info) Description 02/06/2025 11:45 AM CDT Hospital Encounter [facility] Operating Room [address] [place] [phone] Forrest Regan MD [address] [place] [address] 02/06/2025 11:45 AM CDT Anesthesia Event [facility] Operating Room [address] [place] [phone] Princess Purvis NP [facility] [address] [place] [id number] 02/06/2025 11:45 AM CDT - 02/06/2025 6:45 PM CDT Surgery [facility] Operating Room [address] [place] [phone] Forrest Regan MD [address] [place] [address] CELLSAVER! L4-S1 Hardware Removal; L2-4 Posterior Spinal [...] Plan Chronic Care Management Worsening( 1:45 PM RN TRANSITIONAL) Marjorie Blunt RN Note: Problem: Chronic Pain Goals: 1. Minimize further functional decline 2. Maximize quality of life 3. Control pain Strategies: - Activity/exercise program recommendation - Conservative stepwise pain medicine strategy with multi-disciplinary approach - Recommend healthy lifestyle strategies and compensatory methods as needed Medical Devices Implanted Type Area Card Grinder Device Identifier Shelf Expiration Date Model / Serial / Lot [employer] S-Icd A219-07/19/2024 Implanted: 024 (Quantity not on file) ICD Chest Wall [employer] C.R.M. A219 / [id number] / [employer] Rv Lead 3501-07/19/2024 Implanted: 024 by David Maki MD (Quantity not on file) Lead Chest Wall [employer] C.R.M. 3501 / [id number] / Integra Lifesciences Shelley [id number] Duragen Plus 2x2in Patch Resorbable Suturable Cranial Dura Graft - [id number] Implanted:Qty: 1 on 03/05/2020 by Yamilex Drake MD at [facility] Integra Lif[employer]iences Shelley [id number] 09/29/2022 [id number] / / [id number] Globus [employer] 1067.4645 Creo Amp 6.5mm 45mm Cannulated Modular Spine Screw Bone - [id number] Implanted:Qty: 1 on 12/09/2021 by Yamilex Drake MD at [facility] N/A: Spine Lumbar [employer] 1067.4645 / / Creo Screw 6.5x35 Implanted:Qty: 1 on 12/09/2021 by Yamilex Drake MD at [facility] N/A: Spine Lumbar GLOBUS 1067.4635 / / Medtronic Sofamor Danek [id number] Infuse 14mm 23mm Absorbable Sponge Sterile Water Syringe Needle - [id number] Implanted:Qty: 1 on 12/09/2021 by Yamilex Drake MD at [facility] N/A: Spine Lumbar Medtronic Inc 07/01/2023 [id number] / / [id number] Acuity [employer] Inc [id number] - [id number] - [id number] Implanted:Qty: 1 on 12/09/2021 by Yamilex Drkae MD at [facility] N/A: Spine Lumbar [employer] Inc 03/18/2026 [id number] / [id number] / Sea Spine Inc Integra Accell Evo3 Putty Graft 2.5cc Bone Demineralized Bone - [id number] - [id number] Implanted:Qty: 1 on 12/09/2021 by Yamilex Drake MD at [facility] N/A: Spine Lumbar Sea Spine Inc 07/28/2022 / [id number] / [id number] Globus Implanted:Qty: 1 on 12/09/2021 by Yamilex Drake MD at [facility] N/A: Spine Lumbar GLOBUS 10/05/2031 [id number] / / [id number] [employer] 1134.001 Creo Spinal Cap Locking Nonsterile Mis - [id number] Implanted:Qty: 6 on 12/09/2021 by Yamilex Drake MD at [facility] N/A: Spine Lumbar [employer] 1134.0010 / / [employer] 7146.011 Creo Amp Polyaxial Thread Tulip Spine Transfacet Screw Bone Cocr - [id number] Implanted:Qty: 6 on 12/09/2021 by Yamilex Drake MD at [facility] N/A: Spine Lumbar [employer] 7146.0110 / / [employer] 1067.4660 Creo Amp 6.5mm 60mm Modular Cannulated Spine Screw Bone - [id number] Implanted:Qty: 2 on 12/09/2021 by Yamilex Drake MD at [facility] N/A: Spine Lumbar [employer] 1067.4660 / / [employer] 1067.4655 Creo Amp 6.5mm 55mm Cannulated Modular Spine Screw Bone - [id number] Implanted:Qty: 3 on 12/09/2021 by Yamilex Drake MD at [facility] N/A: Spine Lumbar [employer] 1067.4655 / / Lifenet Vivigen Allograft Graft 10 Cc Bone Cortical Cancellous Demineral [facility]1500-003 - [id number] - [id number] Implanted:Qty: 1 on 11/15/2023 by Forrest Regan MD at [facility] N/A: Spine Lumbar Lifenet [id number] 01/07/2024 [facility]1500-003 / [id number] / Musculoskeletal Transplant Od10+ Mm L30 Mm Allograft Frozen Graft Bone Femoral Shaft 100872 - [id number] - [id number] Implanted:Qty: 1 on 11/15/2023 by Forrest Regan MD at [facility] N/A: Spine Lumbar Musculoskeletal Transplant [id number] 11/18/2027 [id number] / [id number] / Medtronic Inc Screw Spinal Anterior Cervical Solid Pyramid 6.5x35mm Titanium [id number] - [id number] Implanted:Qty: 2 on 11/15/2023 by Forrest Regan MD at [facility] N/A: Spine Lumbar Medtronic Inc [id number] / / Medtronic Inc 17mm 17mm Washer Spinal Titanium Bone Graft [id number] - [id number] Implanted:Qty: 2 on 11/15/2023 by Forrest Regan MD at [facility] N/A: Spine Lumbar Medtronic Inc [id number] / / Medtronic Inc Solera Cd Horizon 7.5mm 60mm Multiaxial Spine Screw Bone Cocr [id number] - [id number] Implanted:Qty: 5 on 11/15/2023 by Forrest Regan MD at [facility] N/A: Spine Lumbar Medtronic Inc [id number] / / Medtronic Inc Solera Cd Horizon 7.5mm 55mm Multiaxial Spine Screw Bone Cocr [id number] - [id number] Implanted:Qty: 1 on 11/15/2023 by Forrest Regan MD at [facility] N/A: Spine Lumbar Medtronic Inc [id number] / / Medtronic Inc Cd Horizon Break Off Spinal Screw Set Titanium Nonsterile 5.5 Mm [id number] - [id number] Implanted:Qty: 6 on 11/15/2023 by Forrest Regan MD at [facility] N/A: Spine Lumbar Medtronic Inc [id number] / / Medtronic Inc 5.5mm 60mm Curve David Spinal Nonsterile [id number] - [id number] Implanted:Qty: 1 on 11/15/2023 by Forrest Regan MD at [facility] N/A: Spine Lumbar Medtronic Inc [id number] / / Medtronic Inc 5.5mm 55mm Curve David Spinal Nonsterile [id number] - [id number] Implanted:Qty: 1 on 11/15/2023 by Forrest Regan MD at [facility] N/A: Spine Lumbar Medtronic Inc [id number] / / Procedures Procedure Name Priority Date/Time [...] Read Routine (OP Routine) 11/28/2024 3:18 PM RN TRANSITIONAL Lumbar radiculopathy TRANSTHORACIC ECHO (TTE) COMPLETE W DOPPLER/CF Routine 11/26/2024 11:05 AM RN TRANSITIONAL CARDIOLOGY DOCUMENT SCAN Routine 11/13/2024 3:09 PM RN TRANSITIONAL from Last 3 Months Results * CT [...] gran abs 0.0 0.0 - 0.1 K/cumm [facility] Lymphocyte abs 1.5 0.8 - 3.3 K/cumm [facility] Monocyte abs 0.5 0.2 - 0.8 K/cumm [facility] Eosinophil abs 0.2 0.0 - 0.5 K/cumm [facility] Basophil abs 0.0 0.0 - 0.1 K/cumm [facility] Neutrophil pct 65.1 % [facility] Comment: Interpretive Data Percent cell count reference ranges are not reported, since discordance with absolute values may lead to misinterpretation of CBC data. Current Interpretive Data was last revised on 2018. Imm gran pct 0.5 % [facility] Comment: Interpretive Data Percent cell count reference ranges are not reported, since discordance with absolute values may lead to misinterpretation of CBC data. Current Interpretive Data was last revised on 2018. Lymphocyte pct 23.4 % [facility] Comment: Interpretive Data Percent cell count reference ranges are not reported, since discordance with absolute values may lead to misinterpretation of CBC data. Current Interpretive Data was last revised on 2018. Monocyte pct 8.2 % [facility] Comment: Interpretive Data Percent cell count reference ranges are not reported, since discordance with absolute values may lead to misinterpretation of CBC data. Current Interpretive Data was last revised on 2018. Eosinophil pct 2.3 % [facility] Comment: Interpretive Data Percent cell count reference ranges are not reported, since discordance with absolute values may lead to misinterpretation of CBC data. Current Interpretive Data was last revised on 2018. Basophil pct 0.5 % [facility] Comment: Interpretive Data Percent cell count reference ranges are not reported, since discordance with absolute values may lead to misinterpretation of CBC data. Current Interpretive Data was last revised on 2018. Blood 01/16/2025 3:30 PM CDT 01/16/2025 3:30 PM CDT Forrest Regan MD LAB BLOOD ORDERABLES Final Result Performing Organization Address [facility] Co de Phone Number [facility] [address] [facility] [place] [address] * (ABNORMAL) CBC with auto differential (01/16/2025 3:30 PM CDT) Pathologist [facility] WBC 6.5 3.8 - 9.9 K/cumm Hgb 14.2 13.0 - 17.5 g/dL [facility] Hct 45.2 38.9 - 50.3 % [facility] Plt 223 150 - 400 K/cumm [facility] MPV 9.8 9.1 - 12.3 fL [facility] RBC 4.95 4.30 - 5.80 M/cumm [facility] MCV 91.3 81.3 - 96.4 fL [facility] MCH 28.7 27.1 - 33.3 pg [facility] MCHC 31.4(L) 32.3 - 35.7 g/dL [facility] RDW CV 13.3 11.1 - 14.9 % [facility] RDW SD 44.4 35.7 - 48.1 fL [facility] NRBC abs 0.00 0.00 - 0.01 K/cumm [facility] Blood 01/16/2025 3:30 PM CDT 01/16/2025 3:30 PM CDT Forrest Regan MD LAB BLOOD ORDERABLES Final Result Performing Organization Address [facility] Co de Phone Number [facility] [address] [place] [address] * Erythrocyte sedimentation rate (01/16/2025 3:30 PM CDT) Pathologist [facility] Erythrocyte sedimentation rate 8 1 - 20 mm/hr Blood 01/16/2025 3:30 PM CDT 01/16/2025 3:30 PM CDT Forrest Regan MD LAB BLOOD ORDERABLES Final Result Performing Organization Address [facility]/ZIP Co de Phone Number [facility] [address] [place] [address] * (ABNORMAL) Hemoglobin A1c (01/16/2025 3:30 PM CDT) Pathologist [facility] Hgb A1C 5.7(H) 4.0 - 5.6 % Estimated Average Glucose 117 mg/dL [facility] Comment: The ADA recommends reporting an estimated Average Glucose (eAG) with all Hemoglobin A1c results using the equation derived from a study of 507 normal and diabetic adults. Minority populations were underrepresented and children were not included. (Diabetes Care 31:3411-2831, 2008). The eAG is not equivalent to a fasting glucose. Blood 01/16/2025 3:30 PM CDT 01/16/2025 3:30 PM CDT Forrest Regan MD LAB BLOOD ORDERABLES Final Result [facility] [address] [place] [address] * eGFR (01/16/2025 3:29 PM CDT) [facility] eGFR 87 >=60 mL/min/1. 73 m2 Comment: [...] BLOOD ORDERABLES Final Result Performing Organization Address [facility]/ZIP Co de Phone Number [facility] [address] Department [place], [place] [phone] * (ABNORMAL) Vitamin D 25 hydroxy (01/16/2025 3:29 PM CDT) Pathologist [facility] Vitamin D 25-OH 20(L) 30 - 80 ng/mL Blood 01/16/2025 3:29 PM CDT 01/16/2025 3:29 PM CDT Forrest Regan MD LAB BLOOD ORDERABLES Final Result Performing Organization Address [facility] Co de Phone Number [facility] [address] Department [place], [place] [id number] * Type and screen (01/16/2025 3:29 PM CDT) Pathologist [facility] ABO Rh O Negative Lorenza, indirect Negative [facility] Blood 01/16/2025 3:29 PM CDT 01/16/2025 3:34 PM CDT Narrative [facility] - 01/16/2025 4:18 PM CDT Is this test being ordered in advance for a procedure?->Yes Expected date of procedure:->02/06/25 Has the patient been transfused in the past 3 months?->No Princess Purvis NP LAB BLOOD BANK TEST ORD ERABLES Final Result Performing Organization Address [facility] Co de Phone Number [facility] [address] Department [place], [place] [phone] * CRP (acute phase) (01/16/2025 3:29 PM CDT) Pathologist [facility] CRP 3.4 <=10.0 mg/L Blood 01/16/2025 3:29 PM CDT 01/16/2025 3:29 PM CDT Forrest Regan MD LAB BLOOD ORDERABLES Final Result [facility] [address] [facility] [place] [address] * Albumin (01/16/2025 3:29 PM CDT) Pathologist [facility] Albumin 4.0 3.5 - 5.0 g/dL Blood 01/16/2025 3:29 PM CDT 01/16/2025 3:29 PM CDT Forrest Regan MD LAB BLOOD ORDERABLES Final Result Performing Organization Address [facility] Co de Phone Number [facility] [address] [facility] [place] [address] * Comprehensive metabolic panel (01/16/2025 3:29 PM CDT) Pathologist [facility] Sodium 135 135 - 145 mmol/L Potassium, pl 4.1 3.3 - 4.9 mmol/L [facility] Chloride 99 97 - 110 mmol/L [facility] CO2 24 22 - 32 mmol/L [facility] Anion gap 12 2 - 15 mmol/L [facility] BUN 17 6 - 25 mg/dL [facility] Creatinine 1.02 0.80 - 1.30 mg/dL [facility] Glucose 86 70 - 199 mg/dL [facility] Comment: Interpretive Data Fasting glucose >/= [...] 2022. Calcium 9.0 8.5 - 10.3 mg/dL [facility] Bilirubin, total 0.8 0.1 - 1.2 mg/dL [facility] Protein, pl 7.5 6.5 - 8.5 g/dL [facility] Albumin 4.0 3.5 - 5.0 g/dL [facility] Alk phos 60 40 - 130 Units/L [facility] ALT 30 7 - 55 Units/L [facility] AST 26 10 - 50 Units/L [facility] Blood 01/16/2025 3:29 PM CDT 01/16/2025 3:29 PM CDT us Forrest Regan MD LAB BLOOD ORDERABLES Final Result [facility] [address] Department [place] [address] * Urinalysis reflex to microscopic and culture Urine, clean voided (01/16/2025 2:46 PM CDT) Color, ur Yellow Yellow Clarity, ur Clear Clear [facility] Specific gravity, ur 1.024 1.003 - 1.030 [facility] pH, urine 6.5 [facility] Comment: Interpretive Data U rine pH is affected by diet, medications, systemic acid-base disturbances, and renal tubular function. pH may affect urinary stone formation. For example, urine pH below 6.0 may help reduce the tendency for calcium phosphate stones and pH greater than 6.0 may reduce the tendency for uric acid stone formation. Source: [facility] Current Interpretive Data was last revised on 2017 Protein, ur ql Negative Negative [facility] Glucose, ur ql Negative Negative [facility] Ketones, ur Negative Negative [facility] Bilirubin, ur Negative Negative [facility] Blood, ur Negative Negative [facility] Urobilinogen, ur <2.0 <2.0 mg/dL [facility] Nitrite, ur Negative Negative [facility] Leukocyte esterase, ur Negative Negative [facility] UA reflex comment Reflex conditions for microscopic UA and culture not met. [facility] Urine, clean voided 01/16/2025 2:46 PM CDT 01/16/2025 7:09 PM CDT Forrest Regan MD LAB MICROBIOLOGY - GENERAL ORDERABLES Final Result Performing Organization Address [facility] Co de Phone Number [facility] [address] [place] [address] * Nicotine metabolite screen, urine (01/16/2025 2:46 PM CDT) Pathologist [facility] Nicotine, ur <5.0 <5.0 ng/mL [facility] Cotinine, ur <5.0 <5.0 ng/mL [facility] Anabasine ur <2.0 <2.0 ng/mL [facility] Comment: ADDITIONAL INFORMATION This test was developed and its performance characteristics determined by [facility] Hospital in a manner consistent with CLIA requirements. This test has not been cleared or approved by the U.S. Food and Drug Administration. Test Performed by: [facility] [place] [address] Patient Safety Attendant: Sybil Escobar Ph.D.; CLIA# [id number] Nornicotine, ur <2.0 <2.0 ng/mL [facility] Urine 01/16/2025 2:46 PM CDT 01/16/2025 9:57 PM CDT Forrest Regan MD LAB URINE ORDERABLES Final Result Performing Organization Address [facility] Co de Phone Number [facility] [address] Department [facility] [place], [place] [id number] [place] ref Lab * XR Spine Lumbar Ap [...] Lumbar/Sacral Selective Nerve Root INJ (TFE) Right (19975) (11/28/2024 3:18 PM RN TRANSITIONAL) Narrative [facility] - 11/28/2024 3:18 PM RN TRANSITIONAL The images from this study are not interpreted by Radiology. Please refer to the physician's procedure / OR operative note. Jojo Oviedo MD G PAIN MGMT PROCEDURES F inal Result [facility] * Transthoracic Echo (TTE) Complete W Doppler/CF (11/26/2024 11:05 AM RN TRANSITIONAL) Anatomical Region Laterality Modality Ultrasound us Farzad Anthony MD CV ECHO PROCEDURES Final R esult * Cardiology Document Scan (11/13/2024 3:09 PM RN TRANSITIONAL) Anatomical Region Laterality Modality Other us Farzad Anthony MD CV CARDIAC SERVICES PROCED URES Final Result from Last 3 Months Insurance [employer] [place] [facility] Advance Directives For more information, please contact: [phone] * Full Code (Latest Code Status on [...] 1:44 PM 07/10/2021 1:20 AM Care Teams Professor Of Geology Relationship Specialty Start Date End Date Rome Jacobson MD [address] [address] PCP - General Family Medicine 01/07/25 Filipe Briggs MD [address] [place] [address] [place] [address] Referring Physician Cardiovascular Disease 01/17/25
--- OUTSIDE RECORDS SUMMARY | 2025-01-25 17:48 | XMS_ITS | Clinical Summary ---
Author Organization [facility] Address [address] [place] [address] Care Team Providers Care Editor Dictionary Name Role Phone Buster Pearson MD Primary Care Provider [phone] Source Comments [facility],non-owned Affiliates and Associated Physician Practices is amultiple site organization consisting of ambulatory clinics and hospital sitesin [place], [place], [place] and [place]. This disclosure is being madepursuant to the Care Everywhere program and may not contain all information available regarding this patient. Last updated 18.[facility] Allergies No known active allergies Medications * [...] Problem Noted Date Diagnosed Date Resolved Date [place]'s disease 02/07/2024 02/07/2024 Social History Tobacco Use [...] Office Visit [facility] Dermatology [address] [place] [address], [facility] [place] [address] Max Yuan MD [address] [place] [address] [place] [address] Health Maintenance Due Date Last Done Comments [...] age to complete this topic Care Teams Editor Dictionary Relationship Specialty Start Date End Date Buster Pearson MD [address] [place] [address] PCP - General 03/07/23
--- OUTSIDE RECORDS SUMMARY | 2025-01-25 17:48 | XMS_ITS | CONTINUITY OF CARE DOCUMENT ---
Author Name kamla cason Address Unknown Organization [facility] Address [address] [place] [address] Phone [phone] Care Team Providers Care Fish Cake Maker Name Role Phone Epi TORRES, Unavailable [phone] MARK LOPEZ Unavailable INSURANCE PROVIDERS Payer name Policy type / Coverage type Saira red constitution party ID [facility] [id number]
--- OUTSIDE RECORDS SUMMARY | 2025-01-25 17:48 | XMS_ITS | Continuity of Care Document ---
Author Organization [facility] Address [address] [place] [address] [place] [address] Phone Care Team Providers Care Combination Operator Name Role Phone Gordon Young MD Unavailable Unavailable Advance Directives Directive Yes / No Effective Date File Name No Information Encounters Encounter Description Practice Location Reason(s) For Visit Diagnoses Date Provider Providers Copied on Encounter [facility], [address], [place], [place], [id number], [place] tel:[phone] [facility] No Information [address] Leyva. [address], [place], [place], [id number], [place]. tel:[phone] Family History Family Member Type Diagnosis Age At Onset No Information Payers Payer name Insurance type Covered democrat ID Authoriza tion(s) No Information Social History [...]
--- OUTSIDE RECORDS SUMMARY | 2025-01-25 17:49 | XMS_ITS | Referral Summary ---
Author Organization [facility] Address [address] [place] [phone] Care Team Providers Care Emergency Department Manager Name Role Phone Rome Jacobson MD Primary Care Provider [phone] Filipe Briggs MD Unavailable [phone] Encounters Date Type Department Care Team Description 01/18/2025 Orders Only [facility] Pre Anesthesia Testing [address] [place] [phone] Farzad Anthony MD 01/17/2025 Telephone [facility] Pre Anesthesia Testing [address] [place] [phone] Tracey Fischer RN 01/16/2025 2:15 PM CDT - 01/16/2025 11:59 PM CDT Hospital Encounter [facility] - Imaging [address] [place] [phone] Fusion of spine of lumbar region; 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, unspecified fracture morphology, subsequent encounter; Spinal stenosis of lumbar region, unspecified whether neurogenic claudication present; Lumbar radiculopathy Discharge Disposition: Discharge to home or self care 01/16/2025 2:30 PM CDT Pre-Admission Testing [facility] Pre Anesthesia Testing [address] [place] [phone] Preop testing (Primary Dx); Spinal stenosis, lumbar region, with neurogenic claudication; Lumbar radiculopathy 01/09/2025 Orders Only [facility] Orthopaedic Surgery [address] [facility] [address] [place] [address] Forrest Regan MD Fusion of spine of lumbar region (Primary Dx); 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, unspecified fracture morphology, subsequent encounter; Spinal stenosis of lumbar region, unspecified whether neurogenic claudication present; Lumbar radiculopathy 01/07/2025 2:29 PM CDT - 01/07/2025 11:59 PM CDT Hospital Encounter [facility] [address] [address] [place] [address] Fusion of spine of lumbar region Discharge Disposition: Discharge to home or self care 01/07/2025 3:00 PM CDT Office Visit [facility] Orth[facility] [facility] [address] [place] [address] Forrest Regan MD 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, unspecified fracture morphology, subsequent encounter (Primary Dx); Fusion of spine of lumbar region; Spinal stenosis of lumbar region, unspecified whether neurogenic claudication present; Lumbar radiculopathy 12/19/2024 Telephone [facility] Orthopa[facility] Surgery [address] [place] [address] Advanced Medicine 6th [place] [address] [place] [address] Forrest Regan MD injection 12/05/2024 Telephone [facility] Surgery [address] [place] [address] 6th [place] [address] [place] [address] Forrest Regan MD injection follow up 11/28/2024 1:32 PM VP SECURITY - 11/28/2024 11:59 PM VP SECURITY Hospital Encounter [facility] at the [facility] [place] [address] [facility] [address] [place] [address] Jojo Oviedo MD Radiculopathy of lumbar region (Primary Dx); Fusion of spine of lumbar region; Degenerative lumbar spinal stenosis; Lumbar radiculopathy Discharge Disposition: Discharge to home or self care 11/26/2024 Telephone [facility] at the [facility] [address] [place] [address] [address] [place] [address] Jojo Oviedo MD PMC Preprocedure 11/16/2024 Orders Only [facility] at the [facility] [address] [facility] [address] [place] [address] Jojo Oviedo MD Lumbar radiculopathy (Primary Dx) 11/15/2024 Telephone [facility] at the [facility] [address] 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 Suspect [...] 12/11/2021 Assessment & Plan (12/11/2021 6:43 PM VP SECURITY): Resolved with IVF, likely dehydration. Acute sciatica 12/05/2021 Degeneration of lumbar intervertebral disc 12/05 History of thrombocytopenia 12/02/2021 At risk for obstructive sleep apnea 12/02/2021 Herniation of intervertebral disc between L5 and S1 11/30/2021 Overview (11/30/2021): Added automatically from request for surgery [id number] Neuroforaminal stenosis of lumbosacral spine Overview (11/13/2021): Added automatically from request for surgery [id number] Cerebral ventriculomegaly 07/14/2021 Acute respiratory failure with hypoxia 1 Obesity 07/14/2021 NICOLE (acute kidney injury) 07/14/2021 Acute hyponatremia 07/14/2021 Assessment & Plan (12/11/2021 6:44 PM VP SECURITY): Likely related to hypovolemia. Expect will improve [...] (02/20/2020): Added automatically from request for surgery [id number] Assessment & Plan (12/11/2021 6:40 PM VP SECURITY): S/p L5-S1 decompression, L5-S1 TLIF, L4-S1 PSF by Dr. Drake on 12/09. Defer management to orthopedic primary team. Lumbar disc herniation with radiculopathy 2019 Overview (02/20/2020): Added automatically from request for surgery [id number] Near syncope Delayed emergence from general anesthesia [...] often do you attend chur ch or confucianism services? More than 4 times per year 11/16/2023 Do you belong to any clubs o r organizations such as mosque groups, unions, fraternal or athletic groups, or [...] place to sleep or slept in a halfway (including now)? No 11/16/2023 Personal Safety Answer Date Recorded Have you ever been in or are you currently in a harmful physical or emotional relationship or is someone making you feel afraid or unsafe? Denies 11/16/2023 Sex and Gender Information Value Date Recorded Sex Assigned at Not on file Legal Sex Male 7:39 PM VP SECURITY Gender Identity Not on file Sexual Orientation Not on file Last Filed Vital Signs Vital Sign Reading Time Taken Comments Blood Pressure 129/60 01/16/2025 2:36 PM CDT Pulse 84 01/16/2025 2:36 PM CDT Temperature 36.5 C (97.7 F) 11/28/2024 1:36 PM VP SECURITY Respiratory Rate 16 11/28/2024 3:21 PM VP SECURITY Oxygen Saturation 97% 01/16/2025 2:36 PM CDT Inhaled Oxygen Concentration - - Weight 115.7 kg (255 lb) 01/16/2025 2:36 PM CDT Height 180.3 cm (5' 11 ) 01/16/2025 2:36 PM CDT Body Mass Index 35.57 01/16/2025 2:36 PM CDT Plan of Treatment Upcoming Encounters Date Type Department Care Team (Latest Contact Info) Description 02/06/2025 11:45 AM CDT Hospital Encounter [facility] Operating Room [address] [place] [phone] Forrest Regan MD [address] [facility] [address]6B[address]12A [place] [address] 02/06/2025 11:45 AM CDT Anesthesia Event [facility] Operating Room [address] [place] [phone] Princess Purvis NP [facility] [address] [place] [phone] 02/06/2025 11:45 AM CDT - 02/06/2025 6:45 PM CDT Surgery [facility] Operating Room [address] [place] [phone] Forrest Regan MD [address] [facility] [address] [place] [address] CELLSAVER! L4-S1 Hardware Removal; L2-4 Posterior Spinal [...] Plan Chronic Care Management Worsening( 1:45 PM VP SECURITY) Marjorie Blunt, RN Note: Problem: Chronic Pain Goals: 1. Minimize further functional decline 2. Maximize quality of life 3. Control pain Strategies: - Activity/exercise program recommendation - Conservative stepwise pain medicine strategy with multi-disciplinary approach - Recommend healthy lifestyle strategies and compensatory methods as needed Medical Devices Implanted Type Area Director Motion Picture Device Identifier Shelf Expiration Date Model / Serial / Lot [employer] S-Icd A219-07/19/2024 Implanted: 024 (Quantity not on file) ICD Chest Wall [employer] C.R.M. A219 / [id number] / [employer] Rv Lead 3501-07/19/2024 Implanted: 024 by David Maki MD (Quantity not on file) Lead Chest Wall [employer] C.R.M. 3501 / [id number] / Integra Lifesciences Shelley [id number] Duragen Plus 2x2in Patch Resorbable Suturable Cranial Dura Graft - [id number] Implanted:Qty: 1 on 03/05/2020 by Yamilex Drake MD at [facility] Integra [employer] Shelley [id number] 09/29/2022 [id number] / / [id number] [facility] 1067.4645 Creo Amp 6.5mm 45mm Cannulated Modular Spine Screw Bone - [id number] Implanted:Qty: 1 on 12/09/2021 by Yamilex Drake MD at [facility] N/A: Spine Lumbar [employer] 1067.4645 / / Creo Screw 6.5x35 Implanted:Qty: 1 on 12/09/2021 by Yamilex Drake MD at [facility] N/A: Spine Lumbar GLOBUS 1067.4635 / / Medtronic Sofamor D[place] [id number] Infuse 14mm 23mm Absorbable Sponge Sterile Water Syringe Needle - [id number] Implanted:Qty: 1 on 12/09/2021 by Yamilex Drake MD at [facility] N/A: Spine Lumbar Medtronic Inc 07/01/2023 [id number] / / [id number] Acuity [employer] Inc [id number] - [id number] - [id number] Implanted:Qty: 1 on 12/09/2021 by Yamilex Drake MD at [facility] N/A: Spine Lumbar [employer] Inc 03/18/2026-[id number] / [id number] / Sea Spine Inc Integra Accell Evo3 Putty Graft 2.5cc Bone Demineralized Bone - [id number] - [id number] Implanted:Qty: 1 on 12/09/2021 by Yamilex Drake MD at [facility] N/A: Spine Lumbar Sea Spine Inc 07/28/2022 / [id number] / [id number] Globus Implanted:Qty: 1 on 12/09/2021 by Yamilex Drake MD at [facility] N/A: Spine Lumbar GLOBUS 10/05/2031 [id number] / / [id number] [employer] 1134.001 Creo Spinal Cap Locking Nonsterile Mis - [id number] Implanted:Qty: 6 on 12/09/2021 by Yamilex Drake MD at [facility] N/A: Spine Lumbar [employer] 1134.0010 / / [employer] 7146.011 Creo Amp Polyaxial Thread Tulip Spine Transfacet Screw Bone Cocr - [id number] Implanted:Qty: 6 on 12/09/2021 by Yamilex Drake MD at [facility] N/A: Spine Lumbar [employer] 7146.0110 / / [employer] 1067.4660 Creo Amp 6.5mm 60mm Modular Cannulated Spine Screw Bone - [id number] Implanted:Qty: 2 on 12/09/2021 by Yamilex Drake MD at [facility] N/A: Spine Lumbar [employer] 1067.4660 / / [employer] 1067.4655 Creo Amp 6.5mm 55mm Cannulated Modular Spine Screw Bone - [id number] Implanted:Qty: 3 on 12/09/2021 by Yamilex Drake MD at [facility] N/A: Spine Lumbar [employer] 1067.4655 / / Lifenet Vivigen Allograft Graft 10 Cc Bone Cortical Cancellous Demineral Bl-1500-003 - [id number] - [id number] Implanted:Qty: 1 on 11/15/2023 by Forrest Regan MD at [facility] N/A: Spine Lumbar Lifenet [id number] 01/07/2024 -1500-003 / [id number] / Musculoskeletal Transplant Od10+ Mm L30 Mm Allograft Frozen Graft Bone Femoral Shaft 649403 - [id number] - [id number] Implanted:Qty: 1 on 11/15/2023 by Forrest Regan MD at [facility] N/A: Spine Lumbar Musculoskeletal Transplant [id number] 11/18/2027 [id number] / [id number] / Medtronic Inc Screw Spinal Anterior Cervical Solid Pyramid 6.5x35mm Titanium [id number] - [id number] Implanted:Qty: 2 on 11/15/2023 by Forrest Regan MD at [facility] N/A: Spine Lumbar Medtronic Inc [id number] / / Medtronic Inc 17mm 17mm Washer Spinal Titanium Bone Graft [id number] - [id number] Implanted:Qty: 2 on 11/15/2023 by Forrest Regan MD at [facility] N/A: Spine Lumbar Medtronic Inc [id number] / / Medtronic Inc Solera Cd Horizon 7.5mm 60mm Multiaxial Spine Screw Bone Cocr [id number] - [id number] Implanted:Qty: 5 on 11/15/2023 by Forrest Regan MD at [facility] N/A: Spine Lumbar Medtronic Inc [id number] / / Medtronic Inc Solera Cd Horizon 7.5mm 55mm Multiaxial Spine Screw Bone Cocr [id number] - [id number] Implanted:Qty: 1 on 11/15/2023 by Forrest Regan MD at [facility] N/A: Spine Lumbar Medtronic Inc [id number] / / Medtronic Inc Cd Horizon Break Off Spinal Screw Set Titanium Nonsterile 5.5 Mm [id number] - [id number] Implanted:Qty: 6 on 11/15/2023 by Forrest Regan MD at [facility] N/A: Spine Lumbar Medtronic Inc [id number] / / Medtronic Inc 5.5mm 60mm Curve David Spinal Nonsterile [id number] - [id number] Implanted:Qty: 1 on 11/15/2023 by Forrest Regan MD at [facility] N/A: Spine Lumbar Medtronic Inc [id number] / / Medtronic Inc 5.5mm 55mm Curve David Spinal Nonsterile [id number] - [id number] Implanted:Qty: 1 on 11/15/2023 by Forrest Regan MD at [facility] N/A: Spine Lumbar Medtronic Inc [id number] / / Procedures Procedure Name Priority Date/Time [...] Read Routine (OP Routine) 11/28/2024 3:18 PM VP SECURITY Lumbar radiculopathy TRANSTHORACIC ECHO (TTE) COMPLETE W DOPPLER/CF Routine 11/26/2024 11:05 AM VP SECURITY CARDIOLOGY DOCUMENT SCAN Routine 11/13/2024 3:09 PM VP SECURITY from Last 3 Months Results * CT [...] gran abs 0.0 0.0 - 0.1 K/cumm [facility] Lymphocyte abs 1.5 0.8 - 3.3 K/cumm [facility] Monocyte abs 0.5 0.2 - 0.8 K/cumm [facility] Eosinophil abs 0.2 0.0 - 0.5 K/cumm [facility] Basophil abs 0.0 0.0 - 0.1 K/cumm [facility] Neutrophil pct 65.1 % [facility] Comment: Interpretive Data Percent cell count reference ranges are not reported, since discordance with absolute values may lead to misinterpretation of CBC data. Current Interpretive Data was last revised on 2018. Imm gran pct 0.5 % [facility] Comment: Interpretive Data Percent cell count reference ranges are not reported, since discordance with absolute values may lead to misinterpretation of CBC data. Current Interpretive Data was last revised on 2018. Lymphocyte pct 23.4 % [facility] Comment: Interpretive Data Percent cell count reference ranges are not reported, since discordance with absolute values may lead to misinterpretation of CBC data. Current Interpretive Data was last revised on 2018. Monocyte pct 8.2 % [facility] Comment: Interpretive Data Percent cell count reference ranges are not reported, since discordance with absolute values may lead to misinterpretation of CBC data. Current Interpretive Data was last revised on 2018. Eosinophil pct 2.3 % [facility] Comment: Interpretive Data Percent cell count reference ranges are not reported, since discordance with absolute values may lead to misinterpretation of CBC data. Current Interpretive Data was last revised on 2018. Basophil pct 0.5 % [facility] Comment: Interpretive Data Percent cell count reference ranges are not reported, since discordance with absolute values may lead to misinterpretation of CBC data. Current Interpretive Data was last revised on 2018. Blood 01/16/2025 3:30 PM CDT 01/16/2025 3:30 PM CDT Forrest Regan MD LAB BLOOD ORDERABLES Final Result Performing Organization Address City/[facility]/ZIP Co de Phone Number [facility] [address] [employer] [place], [place] [phone] * (ABNORMAL) CBC with auto differential (01/16/2025 3:30 PM CDT) [facility] WBC 6.5 3.8 - 9.9 K/cumm Hgb 14.2 13.0 - 17.5 g/dL [facility] Hct 45.2 38.9 - 50.3 % [facility] Plt 223 150 - 400 K/cumm [facility] MPV 9.8 9.1 - 12.3 fL [facility] RBC 4.95 4.30 - 5.80 M/cumm [facility] MCV 91.3 81.3 - 96.4 fL [facility] MCH 28.7 27.1 - 33.3 pg [facility] MCHC 31.4(L) 32.3 - 35.7 g/dL [facility] RDW CV 13.3 11.1 - 14.9 % [facility] RDW SD 44.4 35.7 - 48.1 fL [facility] NRBC abs 0.00 0.00 - 0.01 K/cumm [facility] Blood 01/16/2025 3:30 PM CDT 01/16/2025 3:30 PM CDT Forrest Regan MD LAB BLOOD ORDERABLES Final Result Performing Organization Address City/[facility]/ZIP Co de Phone Number [facility] [address] Department of [employer] [place], [place] [phone] * Erythrocyte sedimentation rate (01/16/2025 3:30 PM CDT) [facility] Erythrocyte sedimentation rate 8 1 - 20 mm/hr Blood 01/16/2025 3:30 PM CDT 01/16/2025 3:30 PM CDT Forrest Regan MD LAB BLOOD ORDERABLES Final Result Performing Organization Address [facility] de Phone Number [facility] [address] [facility] [place] [address] * (ABNORMAL) Hemoglobin A1c (01/16/2025 3:30 PM CDT) [facility] Hgb A1C 5.7(H) 4.0 - 5.6 % Estimated Average Glucose 117 mg/dL [facility] Comment: The ADA recommends reporting an estimated Average Glucose (eAG) with all Hemoglobin A1c results using the equation derived from a study of 507 normal and diabetic adults. Minority populations were underrepresented and children were not included. (Diabetes Care 31:9750-1810, 2008). The eAG is not equivalent to a fasting glucose. Blood 01/16/2025 3:30 PM CDT 01/16/2025 3:30 PM CDT Forrest Regan MD LAB BLOOD ORDERABLES Final Result Performing Organization Address [facility] de Phone Number [facility] [address] [facility] [place] [place] [address] * eGFR (01/16/2025 3:29 PM CDT) [facility] eGFR 87 >=60 mL/min/1. 73 m2 [...] Regan MD LAB BLOOD ORDERABLES Final Result [facility] [address] Department [employer] [place], [place] [id number] * (ABNORMAL) Vitamin D 25 hydroxy (01/16/2025 3:29 PM CDT) Vitamin D 25-OH 20(L) 30 - 80 ng/mL Blood 01/16/2025 3:29 PM CDT 01/16/2025 3:29 PM CDT Forrest Regan MD LAB BLOOD ORDERABLES Final Result [facility] [address] [place] [address] * Type and screen (01/16/2025 3:29 PM CDT) ABO Rh O Negative Lorenza, indirect Negative [facility] Blood 01/16/2025 3:29 PM CDT 01/16/2025 3:34 PM CDT Narrative [facility] - 01/16/2025 4:18 PM CDT Is this test being ordered in advance for a procedure?->Yes Expected date of procedure:->02/06/25 Has the patient been transfused in the past 3 months?->No Princess Purvis NP LAB BLOOD BANK TEST ORD ERABLES Final Result Performing Organization Address City/[facility] Co de Phone Number [facility] [address] [place] [place] [address] * CRP (acute phase) (01/16/2025 3:29 PM CDT) [facility] CRP 3.4 <=10.0 mg/L Blood 01/16/2025 3:29 PM CDT 01/16/2025 3:29 PM CDT Forrest Regan MD LAB BLOOD ORDERABLES Final Result Performing Organization Address [facility] Co de Phone Number [facility] [address] [place] [place] [place] [address] * Albumin (01/16/2025 3:29 PM CDT) [facility] Albumin 4.0 3.5 - 5.0 g/dL Blood 01/16/2025 3:29 PM CDT 01/16/2025 3:29 PM CDT Forrest Regan MD LAB BLOOD ORDERABLES Final Result Performing Organization Address [facility] Co de Phone Number [facility] [address] Department [place] [address] * Comprehensive metabolic panel (01/16/2025 3:29 PM CDT) [facility] Sodium 135 135 - 145 mmol/L Potassium, pl 4.1 3.3 - 4.9 mmol/L [facility] Chloride 99 97 - 110 mmol/L [facility] CO2 24 22 - 32 mmol/L [facility] Anion gap 12 2 - 15 mmol/L [facility] BUN 17 6 - 25 mg/dL [facility] Creatinine 1.02 0.80 - 1.30 mg/dL [facility] Glucose 86 70 - 199 mg/dL [facility] Comment: Interpretive Data Fasting glucose >/= [...] 2022. Calcium 9.0 8.5 - 10.3 mg/dL [facility] Bilirubin, total 0.8 0.1 - 1.2 mg/dL [facility] Protein, pl 7.5 6.5 - 8.5 g/dL [facility] Albumin 4.0 3.5 - 5.0 g/dL [facility] Alk phos 60 40 - 130 Units/L [facility] ALT 30 7 - 55 Units/L [facility] AST 26 10 - 50 Units/L [facility] Blood 01/16/2025 3:29 PM CDT 01/16/2025 3:29 PM CDT us Forrest Regan MD LAB BLOOD ORDERABLES Final Result [facility] [address] [place] [address] * Urinalysis reflex to microscopic and culture Urine, clean voided (01/16/2025 2:46 PM CDT) Color, ur Yellow Yellow Clarity, ur Clear Clear [facility] Specific gravity, ur 1.024 1.003 - 1.030 [facility] pH, urine 6.5 [facility] Comment: Interpretive Data U rine pH is affected by diet, medications, systemic acid-base disturbances, and renal tubular function. pH may affect urinary stone formation. For example, urine pH below 6.0 may help reduce the tendency for calcium phosphate stones and pH greater than 6.0 may reduce the tendency for uric acid stone formation. Source: [facility] [employer] Current Interpretive Data was last revised on 2017 Protein, ur ql Negative Negative [facility] Glucose, ur ql Negative Negative [facility] Ketones, ur Negative Negative [facility] Bilirubin, ur Negative Negative [facility] Blood, ur Negative Negative [facility] Urobilinogen, ur <2.0 <2.0 mg/dL [facility] Nitrite, ur Negative Negative [facility] Leukocyte esterase, ur Negative Negative [facility] UA reflex comment Reflex conditions for microscopic UA and culture not met. [facility] Urine, clean voided 01/16/2025 2:46 PM CDT 01/16/2025 7:09 PM CDT Forrest Regan MD LAB MICROBIOLOGY - GENERAL ORDERABLES Final Result Performing Organization Address City/[facility] Co de Phone Number [facility] [address] [place] [address] * Nicotine metabolite screen, urine (01/16/2025 2:46 PM CDT) Nicotine, ur <5.0 <5.0 ng/mL [place] [facility] Cotinine, ur <5.0 <5.0 ng/mL [facility] Anabasine ur <2.0 <2.0 ng/mL [facility] Comment: ADDITIONAL INFORMATION This test was developed and its performance characteristics determined by [facility] in a manner consistent with CLIA requirements. This test has not been cleared or approved by the U.S. Food and Drug Administration. Test Performed by: [facility] - [address] [address] It Compliance Analyst: Sybil Escobar Ph.D.; CLIA# [id number] Nornicotine, ur <2.0 <2.0 ng/mL [facility] Urine 01/16/2025 2:46 PM CDT 01/16/2025 9:57 PM CDT Forrest Regan MD LAB URINE ORDERABLES Final Result Performing Organization Address City/[facility] Co de Phone Number [facility] [address] [place] [address] [place] [facility] * XR Spine Lumbar Ap [...] Lumbar/Sacral Selective Nerve Root INJ (TFE) Right (50581) (11/28/2024 3:18 PM VP SECURITY) Narrative [facility] - 11/28/2024 3:18 PM VP SECURITY The images from this study are not interpreted by Radiology. Please refer to the physician's procedure / OR operative note. us Jojo Oviedo MD IMG PAIN MGMT PROCEDURES F inal Result [facility] * Transthoracic Echo (TTE) Complete W Doppler/CF (11/26/2024 11:05 AM VP SECURITY) Anatomical Region Laterality Modality Ultrasound us Farzad Anthony MD CV ECHO PROCEDURES Final R esult * Cardiology Document Scan (11/13/2024 3:09 PM VP SECURITY) Anatomical Region Laterality Modality Other Farzad Anthony MD CV CARDIAC SERVICES PROCED URES Final Result from Last 3 Months Insurance [employer] [facility] [employer] [facility] [employer] [facility] Advance Directives For more information, please contact: [phone] * Full Code (Latest Code Status on [...] 1:44 PM 07/10/2021 1:20 AM Care Teams Emergency Department Manager Relationship Specialty Start Date End Date Rome Jacobson MD [address] [address] PCP - General Family Medicine 01/07/25 Filipe Briggs MD [address] [place] [address] [place] [address] Referring Physician Cardiovascular Disease 01/17/25
[2025-01-25 17:58] LABS: Anion Gap 10 mmol/L (4-12); Blood Urea Nitrogen 16 mg/dL (9-20); Calcium 9.1 mg/dL (8.4-10.2); Carbon Dioxide 25 mmol/L (22-30); Chloride 102 mmol/L (98-107); Estimated CRCL calculation 107 ml/min; Estimated Glomerular Filt Rate > 60; Glucose 109 mg/dL (65-110); Potassium 4.1 mmol/L (3.4-5.0); Sodium 137 mmol/L (137-145)
[2025-01-25 18:17] LABS: Add Urine Microscopic? NO; Appearance Urine Clear (Clear); Bilirubin Urine Negative (Negative); Blood Urine Negative (Negative); Color Urine Yellow (Yellow); Glucose Urine UA Negative (Negative); Ketones Urine Negative (Negative); Leukocyte Esterase Ur Negative LEU/UL (Negative); Nitrate Urine Negative (Negative); Protein Urine Negative (Negative); Specific Grav Ur 1.022 (1.001-1.035); pH Urine 5.5 (5.0-9.0)
[2025-01-25] MEDS: predniSONE 20 MG TABLET 40 MG PO (18:17)
[2025-01-25] MEDS: KETOROLAC (*BKC) 60 MG/2 ML VIAL IM (18:18)
[2025-01-25 20:12] VITALS: BP 134/82; PULSE 90; RESP 17; O2SAT 100
== END 2025-01-25 20:12 | disposition home or self-care (01) ==
PROVIDERS: Physician Assistant; Emergency Provider Registered Nurse
DX: M54.16 Radiculopathy, lumbar region (principal); G89.29 Other chronic pain; I10 Essential (primary) hypertension
CPT/HCPCS: 36415; 72131; 74176; 80048; 81003; 85025; 96372; 99284; A9270; J1885; J7512

== ENCOUNTER 2025-02-17 19:16 | Emergency (ER) | payer BC, SELFPAY ==
--- OUTSIDE RECORDS SUMMARY | 2025-02-17 19:18 | XMS_ITS | Data Portability ---
Author Organization [facility] [employer], Main Office Address [address] [place] [address] Assessment No assessment recorded. Plan of Treatment Reminders Order Date Submit Date Provider Last Modified By Organization Details Last Modified Time Details Appointments None recorded. Lab HbA1c (hemoglobin A1c), blood 2022 023 [email or web address] [facility], [address], [address], [place], [address], 4 08:47:44 CMP, serum or plasma 2022 023 [email or web address] [facility], [address], [address], [place], [address], 4 08:47:44 lipid panel, serum 2022 023 [email or web address] [facility], [address], [address], [place], [address], 4 08:47:43 Referral EGD referral 2022 023 [email or web address] Laith Gaviria MD, [address], [address], [place], [address], 3 11:04:31 Procedures lexiscan cardiolite stress test (PROC) - Approved [id number] 01/18/2023- 03/21/20232022 023 [facility], [address] [place] [address] [address], [address], [place], [address], 3 17:35:03 colonoscopy screening (PROC) 2022 023 AMPARO Gaviria MD, [address] [facility] [address], [address], [place], [address], 3 13:42:42 Surgeries None recorded. Imaging None recorded. Medication Orders doxycycline hyclate 100 mg capsule 2022 023 [email or web address] [id number], [address] [facility], [place], [address], 3 14:22:15 Patient TargetsNo targets recorded. Patient Instructions Encounter Date Encounter Id Patient Instructions Last Modified By Organization Details Last Modified Time 01/12/2023 [id number] INFLUENZA VACCIN E TD/TDAP PNEUMONIA VACCINE SHINGLES [...] ciate your busin ess. Not Available [facility] ([facility]) [address] [facility] [facility], [place], [address], 10/14/2021 16:11:14 10/09/20 21 10/09/2021 ASHELY VARGASRE [...] ciate your busin ess. Not Available [facility] ([facility]) [address] [facility] [facility] [address], [place], [address], 10/14/2021 16:11:13 10/09/20 21 10/11/2021 PROST ATE-S [...] t be inter prete d as absol table [place] evide nce of the prese nce or absen ce of gloria goodwin disea se. Not Available [facility] ([facility]) [address] [place], [address], 10/14/2021 16:11:13 10/09/20 21 10/11/2021 TSH TSH 1.910 uIU/m L 0.450- 4.500 Not Available [facility] ([facility]) [address] [place], [address], 10/14/2021 16:11:12 10/09/20 21 10/11/2021 THYRO XINE (T4) FREE, DIREC T T4,free(dire ct) 0.88 NG/dL 0.82-1 .77 Not Available [facility] ([facility]) [address] [place], [address], 10/14/2021 16:11:12 10/09/20 21 10/10/2021 HEMOG LOBIN A1C hemoglobin A1C 5.5 % 4.8-5. 6 Predi abete s: 5.7 - 6.4 Diabe omar: >6.4 Glyce javier contr ol for adult s with diabe omar: <7.0 Not Available [facility] ([facility]) [address] [place], [address], 10/14/2021 16:11:11 10/09/20 21 10/11/2021 LIPID PANEL cholesterol, total 202 mg/dL 100-19 9 above high normal Not Available [facility] ([facility]) [address] [place], [address], 10/14/2021 16:11:11 10/09/20 21 10/11/2021 LIPID PANEL triglyceride s 198 mg/dL 0-149 above high normal Not Available [facility] ([facility]) [address] [place], [address], 10/14/2021 16:11:11 10/09/20 21 10/11/2021 LIPID PANEL HDL cholesterol 33 mg/dL >39 below low normal Not Available [facility] ([facility]) [address] [facility], [place], [address], 10/14/2021 16:11:11 10/09/20 21 10/11/2021 LIPID PANEL VLDL cholesterol leobardo 36 mg/dL 5-40 Not Available [facility] ([facility]) [address] [facility] [place], [address], 10/14/2021 16:11:11 10/09/20 21 10/11/2021 LIPID PANEL LDL chol calc ([facility]) 133 mg/dL 0-99 above high normal Not Available [facility] ([facility]) [address] [facility] [address], [place], [address], 10/14/2021 16:11:11 10/09/20 21 10/11/2021 LIPID PANEL comment: advertising assistant Not Available [facility] ([facility]) [address] [place], [address], 10/14/2021 16:11:11 10/09/20 21 10/10/2021 UA/M W/RFL X CULTU RE, ROUTI NE urinalysis reflex commen t This speci men has refle xed to a Urine Cultu re. Not Available [facility] ([facility]) [address] [place], [address], 10/14/2021 16:11:10 10/09/20 21 10/10/2021 UA/M W/RFL X CULTU RE, ROUTI NE specific gravity 1.019 1.005- 1.030 Not Available [facility] ([facility]) [address] [place], [address], 10/14/2021 16:11:10 10/09/20 21 10/10/2021 UA/M W/RFL X CULTU RE, ROUTI NE pH 5.5 5.0-7. 5 Not Available [facility] ([facility]) [address] [place], [address], 10/14/2021 16:11:10 10/09/20 21 10/10/2021 UA/M W/RFL X CULTU RE, ROUTI NE urine-color yellow yellow Not Available [facility]) [address] [facility] [facility], [place], [address], 10/14/2021 16:11:10 10/09/20 21 10/10/2021 UA/M W/RFL X CULTU RE, ROUTI NE appearance clear clear Not Available [facility] ([facility]) [address] [facility] [address], [place], [address], 10/14/2021 16:11:10 10/09/20 21 10/10/2021 UA/M W/RFL X CULTU RE, ROUTI NE WBC esterase 2+ negati ve abnormal Not Available [facility] ([facility]) [address] [place], [address], 10/14/2021 16:11:10 10/09/20 21 10/10/2021 UA/M W/RFL X CULTU RE, ROUTI NE protein negati ve negati ve/tra ce Not Available [facility] ([facility]) [address] [facility] [facility], [place], [address], 10/14/2021 16:11:10 10/09/20 21 10/10/2021 UA/M W/RFL X CULTU RE, ROUTI NE glucose negati ve negati ve Not Available [facility] ([facility]) [address] [place], [address], 10/14/2021 16:11:10 10/09/20 21 10/10/2021 UA/M W/RFL X CULTU RE, ROUTI NE ketones negati ve negati ve Not Available [facility] ([facility]) [address] [place], [address], 10/14/2021 16:11:10 10/09/20 21 10/10/2021 UA/M W/RFL X CULTU RE, ROUTI NE occult blood negati ve negati ve Not Available [facility] ([facility]) [address] [facility], [place], [address], 10/14/2021 16:11:10 10/09/20 21 10/10/2021 UA/M W/RFL X CULTU RE, ROUTI NE bilirubin negati ve negati ve Not Available [facility] ([facility]) [address] [facility] [facility], [place], [address], 10/14/2021 16:11:10 10/09/20 21 10/10/2021 UA/M W/RFL X CULTU RE, ROUTI NE urobilinogen ,semi-qn 0.2 mg/dL 0.2-1. 0 Not Available [facility] ([facility]) [address] [place], [address], 10/14/2021 16:11:10 10/09/20 21 10/10/2021 UA/M W/RFL X CULTU RE, ROUTI NE nitrite, urine positi ve negati ve abnormal Not Available [facility] ([facility]) [address] [place], [address], 10/14/2021 16:11:10 10/09/20 21 10/10/2021 UA/M W/RFL X CULTU RE, ROUTI NE microscopic examination see below: Micro scopi c was indic ated and was perfo rmed. Not Available [facility] ([facility]) [address] [place], [address], 10/14/2021 16:11:10 10/09/20 21 10/10/2021 UA/M W/RFL X CULTU RE, ROUTI NE WBC >30 /hpf 0 - 5 abnormal Not Available [facility] ([facility]) [address] [place], [address], 10/14/2021 16:11:10 10/09/20 21 10/10/2021 UA/M W/RFL X CULTU RE, ROUTI NE RBC none seen /hpf 0 - 2 Not Available [facility] ([facility]) [address] [facility] [facility], [place], [address], 10/14/2021 16:11:10 10/09/20 21 10/10/2021 UA/M W/RFL X CULTU RE, ROUTI NE epithelial cells (non renal) 0-10 /hpf 0 - 10 Not Available [facility] ([facility]) [address] [facility], [place], [address], 10/14/2021 16:11:10 10/09/20 21 10/10/2021 UA/M W/RFL X CULTU RE, ROUTI NE epithelial cells (renal) advertising assistant Not Available [facility] ([facility]) [address] [facility] [facility], [place], [address], 10/14/2021 16:11:10 10/09/20 21 10/10/2021 UA/M W/RFL X CULTU RE, ROUTI NE casts none seen /lpf none seen Not Available [facility] ([facility]) [address] [facility] [facility], [place], [address], 10/14/2021 16:11:10 10/09/20 21 10/10/2021 UA/M W/RFL X CULTU RE, ROUTI NE cast type advertising assistant Not Available [facility] ([facility]) [address] [facility] [facility], [place], [address], 10/14/2021 16:11:10 10/09/20 21 10/10/2021 UA/M W/RFL X CULTU RE, ROUTI NE crystals advertising assistant Not Available [facility] ([facility]) [address] [facility], [place], [address], 10/14/2021 16:11:10 10/09/20 21 10/10/2021 UA/M W/RFL X CULTU RE, ROUTI NE crystal type advertising assistant Not Available [facility] ([facility]) [address] [facility], [place], [address], 10/14/2021 16:11:10 10/09/20 21 10/10/2021 UA/M W/RFL X CULTWILDER CHANG mucus threads advertising assistant Not Available [facility]) [address] [facility] [address], [place], [address], 10/14/2021 16:11:10 10/09/20 21 10/10/2021 UA/M W/RFL X CULTU REWILDER bacteria many none seen/f ew abnormal Not Available [facility] ([facility]) [address] [facility] [address], [place], [address], 10/14/2021 16:11:10 10/09/20 21 10/10/2021 UA/M W/RFL X CULTSharlene REWILDER yeast advertising assistant Not Available [facility] ([facility]) [address] [facility] [facility] [address], [place], [address], 10/14/2021 16:11:10 10/09/20 21 10/10/2021 UA/M W/RFL X CULTSharlene REWILDER trichomonas advertising assistant Not Available [facility]) [address] [facility] [address], [place], [address], 10/14/2021 16:11:10 10/09/20 21 10/10/2021 UA/M W/RFL X CULTWILDER CHANG comment advertising assistant Not Available [facility] ([facility]) [address] [facility] [address], [place], [address], 10/14/2021 16:11:10 10/09/20 21 10/10/2021 UA/M W/RFL X CULTSharlene REWILDER microscopic examination advertising assistant Not Available [facility]) [address] [facility] [facility] [address], [place], [address], 10/14/2021 16:11:10 12/10/20 21 10/14/2021 UA/M W/RFL X CULTU RE, ROUTI NE urine culture, routine final report abnormal Not Available [facility] ([facility]) [address] [facility] [address], [place], [address], 10/14/2021 16:11:10 10/09/20 21 10/14/2021 UA/M W/RFL [...] ng units per mL Not Available [facility] ([facility]) [address] [facility], [place], [address], 10/14/2021 16:11:10 10/09/20 21 10/14/2021 UA/M W/RFL [...] thopr im/Vogt lfa S Not Available [facility] ([facility]) [address] [place], [address], 10/14/2021 16:11:10 10/09/20 21 10/11/2021 COMP. METAB OLIC PANEL (14) glucose 105 mg/dL 65-99 above high normal Not Available [facility] ([facility]) [address] [place], [address], 10/14/2021 16:11:10 10/09/20 21 10/11/2021 COMP. METAB OLIC PANEL (14) BUN 10 mg/dL 6-24 Not Available [facility] ([facility]) [address] [place], [address], 10/14/2021 16:11:10 10/09/20 21 10/11/2021 COMP. METAB OLIC PANEL (14) creatinine 1.09 mg/dL 0.76-1 .27 Not Available [facility] ([facility]) [address] [place], [address], 10/14/2021 16:11:10 10/09/20 21 10/11/2021 COMP. METAB OLIC PANEL (14) eGFR if nonafricn AM 78 mL/mi n/1.7 3 >59 Not Available [facility] ([facility]) [address] [place], [address], 10/14/2021 16:11:10 10/09/20 21 10/11/2021 COMP. METAB [...] a race varia ble. Not Available [facility] ([facility]) [address] [place], [address], 10/14/2021 16:11:10 10/09/20 21 10/11/2021 COMP. METAB OLIC PANEL (14) BUN/creatini ne ratio 9 9-20 Not Available [facility] ([facility]) [address] [facility] [facility], [place], [address], 10/14/2021 16:11:10 10/09/20 21 10/11/2021 COMP. METAB OLIC PANEL (14) sodium 140 mmol/ L 134-14 4 Not Available [facility] ([facility]) [address] [facility] [facility], [place], [address], 10/14/2021 16:11:10 10/09/20 21 10/11/2021 COMP. METAB OLIC PANEL (14) potassium 4.6 mmol/ L 3.5-5. 2 Not Available [facility] ([facility]) [address] [facility] [address], [place], [address], 10/14/2021 16:11:10 10/09/20 21 10/11/2021 COMP. METAB OLIC PANEL (14) chloride 102 mmol/ L 96-106 Not Available [facility] ([facility]) [address] [facility] [facility], [place], [address], 10/14/2021 16:11:10 10/09/20 21 10/11/2021 COMP. METAB OLIC PANEL (14) carbon dioxide, total 25 mmol/ L 20-29 Not Available [facility] ([facility]) [address] [facility] [facility], [place], [address], 10/14/2021 16:11:10 10/09/20 21 10/11/2021 COMP. METAB OLIC PANEL (14) calcium 9.8 mg/dL 8.7-10 .2 Not Available [facility] ([facility]) [address] [place], [address], 10/14/2021 16:11:10 10/09/20 21 10/11/2021 COMP. METAB OLIC PANEL (14) protein, total 7.4 g/dL 6.0-8. 5 Not Available [facility] ([facility]) [address] [facility] [facility], [place], [address], 10/14/2021 16:11:10 10/09/20 21 10/11/2021 COMP. METAB OLIC PANEL (14) albumin 4.3 g/dL 3.8-4. 9 Not Available [facility] ([facility]) [address] [facility] [facility], [place], [address], 10/14/2021 16:11:10 10/09/20 21 10/11/2021 COMP. METAB OLIC PANEL (14) globulin, total 3.1 g/dL 1.5-4. 5 Not Available [facility] ([facility]) [address] [facility] [facility], [place], [address], 10/14/2021 16:11:10 10/09/20 21 10/11/2021 COMP. METAB OLIC PANEL (14) A/G ratio 1.4 1.2-2. 2 Not Available [facility] ([facility]) [address] [facility] [facility], [place], [address], 10/14/2021 16:11:10 10/09/20 21 10/11/2021 COMP. METAB OLIC PANEL (14) bilirubin, total 0.4 mg/dL 0.0-1. 2 Not Available [facility] ([facility]) [address] [facility] [facility], [place], [address], 10/14/2021 16:11:10 10/09/20 21 10/11/2021 COMP. METAB OLIC PANEL (14) alkaline phosphatase 69 IU/L 44-121 Ple ase note refer ence inter jim reis e Not Available [facility] ([facility]) [address] [facility] [facility], [place], [address], 10/14/2021 16:11:10 10/09/20 21 10/11/2021 COMP. METAB OLIC PANEL (14) AST (SGOT) 18 IU/L 0-40 Not Available [facility] ([facility]) [address] [facility] [facility], [place], [address], 10/14/2021 16:11:10 10/09/20 21 10/11/2021 COMP. METAB OLIC PANEL (14) ALT (SGPT) 28 IU/L 0-44 Not Available [facility] ([facility]) [address] [facility] [facility], [place], [address], 10/14/2021 16:11:10 03/24/20 22 03/25/2022 CULTU RE, URINE , ROUTI NE culture, urine, routine CULTU RE, URINE , ROUTI NE Micro Numbe r: [id number] Test Statu s: Final Speci men Sourc e: Urine , clean catch Speci men Quali ty: Adequ ate Resul t: No Growt h Not Available [address], [address], 03/25/2022 22:38:45 03/24/20 22 03/25/2022 URINA LYSIS , COMPL ETE color yellow yellow normal Not Available [address], [address], 03/25/2022 22:38:44 03/24/20 22 03/25/2022 URINA LYSIS , COMPL ETE appearance clear clear normal Not Available [facility] [address], [address], 03/25/2022 22:38:44 03/24/20 22 03/25/2022 URINA LYSIS , COMPL ETE specific gravity 1.014 1.001- 1.035 normal Not Available [facility] [address], [address], 03/25/2022 22:38:44 03/24/20 22 03/25/2022 URINA LYSIS , COMPL ETE pH 8.0 5.0-8. 0 normal Not Available [address], [address], 03/25/2022 22:38:44 03/24/20 22 03/25/2022 URINA LYSIS , COMPL ETE glucose negati ve negati ve normal Not Available [facility] [address], [address], 03/25/2022 22:38:44 03/24/20 22 03/25/2022 URINA LYSIS , COMPL ETE bilirubin negati ve negati ve normal Not Available [facility] [address], [address], 03/25/2022 22:38:44 03/24/20 22 03/25/2022 URINA LYSIS , COMPL ETE ketones negati ve negati ve normal Not Available [facility] [address], [address], 03/25/2022 22:38:44 03/24/20 22 03/25/2022 URINA LYSIS , COMPL ETE occult blood negati ve negati ve normal Not Available [address], [address], 03/25/2022 22:38:44 03/24/20 22 03/25/2022 URINA LYSIS , COMPL ETE protein negati ve negati ve normal Not Available [facility] [address], [address], 03/25/2022 22:38:44 03/24/20 22 03/25/2022 URINA LYSIS , COMPL ETE nitrite negati ve negati ve normal Not Available [address], [address], 03/25/2022 22:38:44 03/24/20 22 03/25/2022 URINA LYSIS , COMPL ETE leukocyte esterase negati ve negati ve normal Not Available [facility] [address] [place], [address], 03/25/2022 22:38:44 03/24/20 22 03/25/2022 URINA LYSIS , COMPL ETE WBC none seen /hpf < or = 5 normal Not Available [address], [address], 03/25/2022 22:38:44 03/24/20 22 03/25/2022 URINA LYSIS , COMPL ETE RBC none seen /hpf < or = 2 normal Not Available [address], [address], 03/25/2022 22:38:44 03/24/20 22 03/25/2022 URINA LYSIS , COMPL ETE squamous epithelial cells none seen /hpf < or = 5 normal Not Available [address], [address], 03/25/2022 22:38:44 03/24/20 22 03/25/2022 URINA LYSIS , COMPL ETE bacteria none seen /hpf none seen normal Not Available [address], [address], 03/25/2022 22:38:44 03/24/20 22 03/25/2022 URINA LYSIS , COMPL ETE hyaline cast none seen /lpf none seen normal Not Available [address], [address], 03/25/2022 22:38:44 04/08/20 22 04/09/2022 CBC (INCL UDES DIFF/ PLT) white blood cell count 5.1 thous and/u L 3.8-10 .8 normal Not Available [address], [address], 04/09/2022 07:22:46 04/08/20 22 04/09/2022 CBC (INCL UDES DIFF/ PLT) red blood cell count 5.36 kalpesh on/uL 4.20-5 .80 normal Not Available [address], [address], 04/09/2022 07:22:46 04/08/20 22 04/09/2022 CBC (INCL UDES DIFF/ PLT) hemoglobin 14.9 g/dL 13.2-1 7.1 normal Not Available [address], [address], 04/09/2022 07:22:46 04/08/20 22 04/09/2022 CBC (INCL UDES DIFF/ PLT) hematocrit 45.5 % 38.5-5 0.0 normal Not Available [address], [address], 04/09/2022 07:22:46 04/08/20 22 04/09/2022 CBC (INCL UDES DIFF/ PLT) MCV 84.9 fL 80.0-1 00.0 normal Not Available [address], [address], 04/09/2022 07:22:46 04/08/20 22 04/09/2022 CBC (INCL UDES DIFF/ PLT) MCH 27.8 pg 27.0-3 3.0 normal Not Available [address], [address], 04/09/2022 07:22:46 04/08/20 22 04/09/2022 CBC (INCL UDES DIFF/ PLT) MCHC 32.7 g/dL 32.0-3 6.0 normal Not Available [address], [address], 04/09/2022 07:22:46 04/08/20 22 04/09/2022 CBC (INCL UDES DIFF/ PLT) RDW 13.5 % 11.0-1 5.0 normal Not Available [address], [address], 04/09/2022 07:22:46 04/08/20 22 04/09/2022 CBC (INCL UDES DIFF/ PLT) platelet count 209 thous and/u L 140-40 0 normal Not Available [address], [address], 04/09/2022 07:22:46 04/08/20 22 04/09/2022 CBC (INCL UDES DIFF/ PLT) MPV 10.4 fL 7.5-12 .5 normal Not Available [address], [address], 04/09/2022 07:22:46 04/08/20 22 04/09/2022 CBC (INCL UDES DIFF/ PLT) absolute neutrophils 3249 cells /uL 1500-7 800 normal Not Available [address], [address], 04/09/2022 07:22:46 04/08/20 22 04/09/2022 CBC (INCL UDES DIFF/ PLT) absolute lymphocytes 1224 cells /uL 850-39 00 normal Not Available [address], [address], 04/09/2022 07:22:46 04/08/20 22 04/09/2022 CBC (INCL UDES DIFF/ PLT) absolute monocytes 479 cells /uL 200-95 0 normal Not Available [address], [address], 04/09/2022 07:22:46 04/08/20 22 04/09/2022 CBC (INCL UDES DIFF/ PLT) absolute eosinophils 128 cells /uL 15-500 normal Not Available [address], [address], 04/09/2022 07:22:46 04/08/20 22 04/09/2022 CBC (INCL UDES DIFF/ PLT) absolute basophils 20 cells /uL 0-200 normal Not Available [facility] [address] [address], [place], [address], 04/09/2022 07:22:46 04/08/20 22 04/09/2022 CBC (INCL UDES DIFF/ PLT) neutrophils 63.7 % normal Not Available [address], [address], 04/09/2022 07:22:46 04/08/20 22 04/09/2022 CBC (INCL UDES DIFF/ PLT) lymphocytes 24.0 % normal Not Available [facility] [address], [address], 04/09/2022 07:22:46 04/08/20 22 04/09/2022 CBC (INCL UDES DIFF/ PLT) monocytes 9.4 % normal Not Available [address], [address], 04/09/2022 07:22:46 04/08/20 22 04/09/2022 CBC (INCL UDES DIFF/ PLT) eosinophils 2.5 % normal Not Available [address], [address], 04/09/2022 07:22:46 04/08/20 22 04/09/2022 CBC (INCL UDES DIFF/ PLT) basophils 0.4 % normal Not Available [address], [address], 04/09/2022 07:22:46 04/08/20 22 04/09/2022 LIPAS E lipase 32 U/L 7-60 normal Not Available [address], [address], 04/09/2022 07:22:45 04/08/20 22 04/09/2022 AMYLA SE amylase 34 U/L 21-101 normal Not Available [address], [address], 04/09/2022 07:22:45 04/08/20 22 04/09/2022 COMPR EHENS DWAYNE METAB OLIC PANEL glucose 105 mg/dL 65-99 high Fasti ng refer ence inter jim For someo ne witho ut known diabe omar, a gluco se value betwe en 100 and 125 mg/dL is consi stent with predi abete s and shoul d be confi rmed with a follo w-up test. Not Available [facility] [address] [address] [place], [address], 04/09/2022 07:22:44 04/08/20 22 04/09/2022 COMPR EHENS DWAYNE METAB OLIC PANEL urea nitrogen (BUN) 14 mg/dL 7-25 normal Not Available [facility] [address] [address] [place], [address], 04/09/2022 07:22:44 04/08/20 22 04/09/2022 COMPR EHENS DWAYNE METAB OLIC PANEL creatinine 1.02 mg/dL 0.70-1 .33 normal For patie nts >49 years of age, the refer ence limit for Creat inine is appro ximat ghanshyam 13% highe r for peopl e ident ified as Afric an-Am hussein n. Not Available [facility] [address] [address] [place], [address], 04/09/2022 07:22:44 04/08/20 22 04/09/2022 COMPR EHENS DWAYNE METAB OLIC PANEL eGFR non-afr. bahraini 85 mL/mi n/1.7 3m2 > or = 60 normal Not Available [facility] [address] [address] [place], [address], 04/09/2022 07:22:44 04/08/20 22 04/09/2022 COMPR EHENS DWAYNE METAB OLIC PANEL eGFR 98 mL/mi n/1.7 3m2 > or = 60 normal Not Available [facility] [address] [address] [place], [address], 04/09/2022 07:22:44 04/08/20 22 04/09/2022 COMPR EHENS DWAYNE METAB OLIC PANEL BUN/creatini ne ratio not applic able (calc ) 6-22 Not Available [address], [address], 04/09/2022 07:22:44 04/08/20 22 04/09/2022 COMPR EHENS DWAYNE METAB OLIC PANEL sodium 138 mmol/ L 135-14 6 normal Not Available [address], [address], 04/09/2022 07:22:44 04/08/20 22 04/09/2022 COMPR EHENS DWAYNE METAB OLIC PANEL potassium 4.4 mmol/ L 3.5-5. 3 normal Not Available [address], [address], 04/09/2022 07:22:44 04/08/20 22 04/09/2022 COMPR EHENS DWAYNE METAB OLIC PANEL chloride 102 mmol/ L 98-110 normal Not Available [address], [address], 04/09/2022 07:22:44 04/08/20 22 04/09/2022 COMPR EHENS [facility] METAB OLIC PANEL carbon dioxide 28 mmol/ L 20-32 normal Not Available [address], [address], 04/09/2022 07:22:44 04/08/20 22 04/09/2022 COMPR EHENS [facility] METAB OLIC PANEL calcium 9.4 mg/dL 8.6-10 .3 normal Not Available [address], [address], 04/09/2022 07:22:44 04/08/20 22 04/09/2022 COMPR EHENS [facility] METAB OLIC PANEL protein, total 7.7 g/dL 6.1-8. 1 normal Not Available [address], [address], 04/09/2022 07:22:44 04/08/20 22 04/09/2022 COMPR EHENS [facility] METAB OLIC PANEL albumin 4.5 g/dL 3.6-5. 1 normal Not Available [address], [address], 04/09/2022 07:22:44 04/08/20 22 04/09/2022 COMPR EHENS [facility] METAB OLIC PANEL globulin 3.2 g/dL_ (calc ) 1.9-3. 7 normal Not Available [address], [address], 04/09/2022 07:22:44 04/08/20 22 04/09/2022 COMPR EHENS [facility] METAB OLIC PANEL albumin/glob ulin ratio 1.4 (calc ) 1.0-2. 5 normal Not Available [address], [address], 04/09/2022 07:22:44 04/08/20 22 04/09/2022 COMPR EHENS [facility] METAB OLIC PANEL bilirubin, total 0.8 mg/dL 0.2-1. 2 normal Not Available [address], [address], 04/09/2022 07:22:44 04/08/20 22 04/09/2022 COMPR EHENS [facility] METAB OLIC PANEL alkaline phosphatase 71 U/L 35-144 normal Not Available [facility] [address], [address], 04/09/2022 07:22:44 04/08/20 22 04/09/2022 COMPR EHENS [facility]AY[facility] METAB OLIC PANEL AST 27 U/L 10-35 normal Not Available [address], [address], 04/09/2022 07:22:44 04/08/20 22 04/09/2022 COMPR EHENS DWAYNE METAB OLIC PANEL ALT 36 U/L 9-46 normal Not Available [facility] [address] , [place], [address], 04/09/2022 07:22:44 08/04/20 21 07/16/2021 XR, abdom en No observ ation record ed. MIGRATION. [facility] (Imaging) [address], [place], [address], 12/29/2022 07:40:17 08/04/20 21 07/17/2021 US, echoc ardio gram, trans thora cic, compl ete, w/ color flow No observ ation record ed. MIGRATION. [facility] (Imaging) [address], [place], [address], 12/29/2022 07:40:17 04/16/20 22 04/16/2022 US, abdom en No observ ation record ed. MIGRATION. [facility] (Imaging) [address] [facility], [place], [address], 12/29/2022 07:40:17 01/27/20 23 01/26/2023 lata can cardi olite stres s test (PROC ) No observ ation record ed. [email or web address] [facility] [address], [place], [address], 01/28/2023 11:54:37 04/05/20 23 04/01/2023 colon oscop y scree shandra (PROC ) No observ ation record ed. [email or web address] Laith Gaviria MD [address] [facility] [address], [place], [address], 07/19/2023 18:03:13 11/17/19 24 10/23/2023 CT, brain , w/o contr ast No observ ation record ed. [place] [id number], [place], [address], 11/17/2023 15:13:23 Result Notes None recorded. Problems Name Problem SNOMED Code Status Onset Date Resolution Date Notes Provider Name and Address Organization Details Recorded Time Abdominal bloating 608796413 Active 2021 Not Available [facility] 3 07:31:45 Abnormal urinalysi s 287869261 Active 2021 Not Available [facility] 3 07:31:45 Degenerat ion of lumbar intervert ebral disc 22404174 Active Not Available [facility] 3 07:31:45 Periphera l neuropath ic pain 899885102 Active 2021 Not Available [facility] 3 07:31:45 Left lower quadrant pain 430069818 Active 2021 Not Available [facility] 3 07:31:45 Acute sciatica 942323947 Active Not Available [facility] 3 07:31:45 Pyeloneph ritis 88478129 Active 2022 Not Available [facility] 3 07:31:45 COVID-19 588086664 Completed 202007/31/2021 Not Available [facility] 3 07:31:45 Pneumonia caused by SARS-CoV- 2 71759134364 1054087 Completed 202007/31/2021 Not Available [facility] 3 07:31:45 Hyperlipi demia 87650988 Active 2022 ISABEL De Oliveira [address] [facility] [address], [place], [address] , [facility] 3 17:13:35 Intermitt ent dysphagia 83984356 Active 2022 ISABEL De Oliveira [address], [address], [place], [address] , [facility] 3 17:13:52 Folliculi tis 37787960 Active 2022 ISABEL De Oliveira [address] [facility], [address], [place], [address] , [facility] 3 17:14:03 Impaired glucose tolerance 1669305 Active 2022 ISABEL De Oliveira [address] [facility], [address], [place], [address] , [facility] 3 17:14:07 Chronic low back pain 733413746 Active 2022 ISABEL De Oliveira [address] [facility] [address], [facility] [address], [place], [address] , [facility] 3 17:15:46 Notes:covid + 06/29/21 Problem Notes None recorded. Procedures Surgical History Date Name Laterality Status Provider Name and Address Organization Details Recorded Time Back Surgery completed Gely Orta MA [facility] 01/12/2023 16:40:21 Back Surgery completed Not Available [facility] 12/29/2022 07:27:09 Imaging Results Imaging Date Name Status LastModified by Celestino bravo Details LastModified Time 07/16/2021 XR, abdomen completed [id number] [facility] (Imaging) [address] [place] [address], [address], 12/29/2022 07:40:17 07/17/2021 US, echocardiogram, transthoracic, complete, w/ color flow completed [id number] [facility] (Imaging) [address] [place] [address], [address], 12/29/2022 07:40:17 04/16/2022 US, abdomen completed [id number] [facility] (Imaging) [address] [place], [address], 12/29/2022 07:40:17 01/26/2023 lexiscan cardiolite stress test (PROC) completed [id number] [facility] [address], [place], [address], 01/28/2023 11:54:37 04/01/2023 colonoscopy screening (PROC) completed [email or web address] Laith Gaviria MD [address], [place], [address], 07/19/2023 18:03:13 10/23/2023 CT, brain, w/o contrast completed [address], [place], [address], 11/17/2023 15:13:23 Procedure Notes None recorded. Medical [...] % 96 % 122 /min 97.1 [degF] 671137. 27 g 120 mm[Hg] 80 mm[Hg] Not Available [facility] 3 07:28:55 Date Recorded Body mass index (BMI) Body height Oxygen saturation Oxygen saturation in Arterial blood by Pulse oximetry Heart rate Respiratory rate Body temperature Body weight Systolic blood pressure Diastolic blood pressure Provider Name and Address Organization Details Last Updated DateTime 2 35.7 kg/m2 180.34 cm 96 % 96 % 106 /min 16 /min 98 [degF] 622096. 65 g 110 mm[Hg] 68 mm[Hg] Not Available [facility] 3 07:28:55 Date Recorded Body height Body mass index (BMI) Body weight Body temperature Heart rate Oxygen saturation Oxygen saturation in Arterial blood by Pulse oximetry Systolic blood pressure Diastolic blood pressure Provider Name and Address Organization Details Last Updated DateTime 3 180.34 cm 36.1 kg/m2 258920. 42 g 98.2 [degF] 93 /min 97 % 97 % 118 mm[Hg] 84 mm[Hg] Gely Orta MA [facility] [employer] [facility] 16:42:45 Social History Question Answer Notes LastModified by Organizat ion Details LastModified Time Tobacco Smoking Status Never Smoker NIRMAL Roberts, [facility] 01/12/2023 16:24:45 Do You Have An Advance Directive? No [id number] Information not available 12/29/2022 What Is Your Level Of Alcohol Consumption? None [id number] Information not available 12/29/2022 Do You Wear A Helmet When Biking? No [email or web address] Information not available 01/12/2023 Is Blood Transfusion Acceptable In An Emergency? No [email or web address] Information not available 01/12/2023 What Is Your Level Of Caffeine Consumption? Moderate Monster- Daily [id number] Information not available 12/29/2022 In The 14 Days Before Symptom Onset, Have You Had Close Contact With A Laboratory-confir med COVID-19 While That Case Was Ill? No [email or web address] Information not available 01/12/2023 In The 14 Days Before Symptom Onset, Have You Had Close Contact With A Person Who Is Under Investigation For COVID-19 While That Person Was Ill? No [email or web address] Information not available 01/12/2023 Are You Currently Employed? Yes [email or web address] Information not available 01/12/2023 What Type Of Diet Are You Following? REGULAR [id number] Information not available 12/29/2022 What Is The Highest Grade Or Level Of School You Have Completed Or The Highest Degree You Have Received? [id number] Trade School Information not available 01/12/2023 What Is Your Occupation? [employer]ing [employer] [email or web address] Information not available 01/12/2023 Have You Been Exposed To Chemicals Or Toxins? No [email or web address] Information not available 01/12/2023 Have There Been Any Changes To Your Family Or Social Situation? No [email or web address] Information no t available 01/12/2023 Are There Any Guns Present In Your Home? Yes [email or web address] Information not available 01/12/2023 Do You Use Insect Repellent Routinely? Yes [email or web address] Information not available 01/12/2023 Do You Have A Medical Power Of Certified Surgical Technician? No [email or web address] Information not available 01/12/2023 Do You Have Moisture Problems In Your Home? No [email or web address] Information not available 01/12/2023 What Is Your Relationship Status? [id number] Information not available 12/29/2022 Do You Use Your Seat Belt Or Car Seat Routinely? Yes [email or web address] Information not available 01/12/2023 Do You Have Smoke And Carbon Monoxide Detectors In Your Home? Yes Information not available 01/12/2023 Do You Participate In Social Belly? No [email or web address] Information not available 01/12/2023 Do You Feel Stressed (tense, Restless, Nervous, Or Anxious, Or Unable To Sleep At Night)? [id number] [email or web address] Information not available 01/12/2023 Do You Use Any Illicit Or Recreational Drugs? No [email or web address] Information not available 01/12/2023 Do You Use Sunscreen Routinely? Yes [email or web address] Information not available 01/12/2023 Has Tobacco Cessation Counseling Been Provided? No [email or web address] Information not available 01/12/2023 Have You Recently Traveled Abroad? No [email or web address] Information not available 01/12/2023 Are You Currently In School? No [email or web address] Information not available 01/12/2023 Do You Have Any Dietary Restrictions? No [email or web address] Information not available 01/12/2023 Do You Or Have You Ever Used Any Other Forms Of Tobacco Or Nicotine? No [email or web address] Information not available 01/12/2023 Sex: Unknown Functional Status Question Answer Note LastModified by Organizat ion Details LastModified Time What is your exercise level? None [id number] Information not available 12/29/2022 Mental Status None recorded. Family History Relationship Description Onset Age of this Age Resolved Age Notes LastModified by Organization Details LastModified Time Mother Malignant tumor of lung [id number] Not available 12/29/2022 07:27:12 Father Chronic obstructive pulmonary disease [id number] Not available 12/29/2022 07:27:12 Medical History Condition Response KIDNEY STONES Y EYE PROBLEMS N BACK / NECK PROBLEMS Y URINARY/BLADDER/KIDNEY PROBLEMS Y Immunizations Vaccine Type Date Status Note Provider Juwan schuler and Address Organization Details Recorded Time influenza, unspecified formulation 5 completed Not Available [facility] 12/29/2022 07:39:54 Tdap 2 completed Not Available [facility] 12/29/2022 07:39:54 Past Encounters Encounter ID Performer Location Encounter Start Date Encounter Closed Date Diagnosis/Indication Diagnosis SNOMED-CT Code Diagnosis ICD10 Code Diagnosis Note [id number] [facility] [address] [place] [address] 07/24/2021 00:00:00 07/26/2021 21:21:44 [id number] [facility] [address] [place] [address] 04/07/2022 00:00:00 04/29/2022 18:12:33 [id number] ISABEL De Oliveira [facility] [address] [place] [address] 01/12/2023 16:24:04 01/12/2023 17:19:24 Adult health examination 940057289 Z00.01 well exam completed Hyperlipidemia 60453271 E78.5 pt has declined statin therapy and continues to pick on diet management . recommenda tions given that medication is indicated. he will repeat labs in may. Impaired g lucose tolerance 1533189 R73.03 5.8% A1c following. Watch carbs and sugars. limited on his exercise due to chronic back issues. Family his tory of premature coronary heart disease 291108051 Z82.49 refer for screening lexiscan testing with fam hx of premature CAD. He is UNABLE to complete treadmill stress testing due to his low back fusion hx and current continued pain. Intermitte nt dysphagia 05329588 R13.19 refer for EGD with reported intermitte nt dysphagia Screening for malignant neoplasm of colon 125159833 Z12.11 refer for colonoscop y Folliculitis 27946001 L7 3.9 start course of doxy 100mg bid x 10 days History of lumbar fusion 7953585885 9106 Z98.1 Chronic low back pain 27 9014173 M54.50 seeing his neurosurge ry specialist for management . Long-term drug therapy 689770789 Z79.899 CMP repeat due in may. Health Concerns Section Related Observation LastModified by Organization Detai ls LastModified Time None Recorded Concern Status LastModified by Organization Details LastModified Time None Recorded Advance Directives Directive N: Payers Encounter Date Sequence Insurance Name Policy Number Policy Lynch Covered Member ID Lynch Member ID Guarantor Name 01/12/2023 1 [place] [id number] Dk Quinones [id number] Dk Quinones Notes Date Note Type Note Provider Name and Address Organization Details Recorded Time 07/24/2021 text/html Generic HPI TemplateReported bypatient.Notes:First hospital admission was for Covid and pneumonia at [facility]. He was in for 5 days in [...] appt with ortho on tuesday Not Available [facility] 07/26/2021 21:21:44 04/07/2022 text/html Foot Problem - [...] these two things are related. Not Available [facility] 04/29/2022 18:12:33 01/12/2023 text/html having some acne but here just for routine check up ISABEL De Oliveira [address] [facility] [facility] [address], [place], [address], [facility] 01/16/2023 13:11:39
--- OUTSIDE RECORDS SUMMARY | 2025-02-17 19:18 | XMS_ITS | Continuity of Care Document ---
Author Organization [facility] Address [address] [place] [address] [place] [address] Phone Care Team Providers Care Retail Office Associate Name Role Phone Gordon Young MD Unavailable Unavailable Advance Directives Directive Yes / No Effective Date File Name No Information Encounters Encounter Description Practice Location Reason(s) For Visit Diagnoses Date Provider Providers Copied on Encounter [facility], [address], [place], [place], [id number], [place] tel:[phone] SEC [facility] [place] [facility] [place] No Information [address] Leyva. [address], [place], [place], [id number], [place]. tel:[phone] Family History Family Member Type Diagnosis Age [...]
--- OUTSIDE RECORDS SUMMARY | 2025-02-17 19:18 | XMS_ITS | CONTINUITY OF CARE DOCUMENT ---
Author Name kamla cason Address Unknown Organization [facility] Address [address] [place] [address] Phone [phone] Care Team Providers Care Truck Assembler Name Role Phone Epi TORRES, Unavailable [phone] MARK LOPEZ Unavailable INSURANCE PROVIDERS Payer name Policy type / Coverage type Saira red constitution party ID [facility] [id number]
--- OUTSIDE RECORDS SUMMARY | 2025-02-17 19:19 | XMS_ITS | Data Portability ---
Author Organization [facility] [address] [facility] [address] Care Team Providers Care Museum Service Scheduler Name Role Phone MARK BULLOCK Primary Care Provider Unavailab le Assessment No assessment recorded. Plan of Treatment Reminders Order Date Submit Date Provider Last Modified By Organization Details Last Modified Time Details Appointments None recorded. Lab lipid panel, serum [facility], [address], [address], [place], [address], 4 03:37:30 CBC w/ auto diff [facility], [address], [address], [place], [address], 4 03:37:36 CMP, serum or plasma [facility], [address], [address], [place], [address], 4 03:37:31 TSH + free T4, serum [facility], [address], [address], [place], [address], 4 03:37:28 vitamin B12 + folate, serum or blood [facility], [address], [address], [place], [address], 4 03:37:32 PSA, total, serum or plasma [facility], [address], [address], [place], [address], 03:37:37 testoster one, free + total, serum [facility], [address], [address], [place], [address], 03:37:27 HbA1c (hemoglob in A1c), blood [facility], [address], [address], [place], [address], 03:37:34 insulin, serum [facility], [address], [address], [place], [address], 03:37:35 Referral None recorded. Procedures None recorded. Surgeries None recorded. Imaging None recorded. Medication Orders None recorded. Patient TargetsNo targets recorded. Patient Instructions Encounter Date Encounter Id Patient Instructions Last Modified By Organization Details Last Modified Time 07/31/2024 [id number] A healthy lifestyle: care instructions [email or web address] Not [...] . JCEM 2017, 102;1 161-1 173. PMID: [id number] 103. Not Available [facility] ([facility]) [address], [place], [address], 08/09/2024 03:37:27 08/03/2008/09/2024 TESTO STERO NE,FR EE AND TOTAL free testosterone (direct) 10.0 pg/mL 7.2-24 .0 Not Available [facility] ([facility]) [address] [place], [address], 08/09/2024 03:37:27 08/03/20 24 08/04/2024 TSH+F REE T4 TSH 1.700 uIU/m L 0.450- 4.500 Not Available [facility] ([facility]) [address] [place], [address], 08/09/2024 03:37:28 08/03/2008/04/2024 TSH+F REE T4 T4,free(dire ct) 0.90 NG/dL 0.82-1 .77 Not Available [facility] ([facility]) [address] [place], [address], 08/09/2024 03:37:28 08/03/20 24 08/04/2024 LIPID PANEL WITH LDL/H DL RATIO cholesterol, total 215 mg/dL 100-19 9 above high normal Not Available [facility] ([facility]) [address] [place], [address], 08/09/2024 03:37:30 08/03/20 24 08/04/2024 LIPID PANEL WITH LDL/H DL RATIO triglyceride s 183 mg/dL 0-149 above high normal Not Available [facility] ([facility]) [address] [place], [address], 08/09/2024 03:37:30 08/03/20 24 08/04/2024 LIPID PANEL WITH LDL/H DL RATIO HDL cholesterol 33 mg/dL >39 below low normal Not Available [facility] ([facility]) [address] [place], [address], 08/09/2024 03:37:30 08/03/20 24 08/04/2024 LIPID PANEL WITH LDL/H DL RATIO VLDL cholesterol leobardo 33 mg/dL 5-40 Not Available [facility] ([facility]) [address] [facility], [place], [address], 08/09/2024 03:37:30 08/03/20 24 08/04/2024 LIPID PANEL WITH LDL/H DL RATIO LDL chol calc ([facility]) 149 mg/dL 0-99 above high normal Not Available [facility] ([facility]) [address] [facility], [place], [address], 08/09/2024 03:37:30 08/03/20 24 08/04/2024 LIPID PANEL WITH LDL/H DL RATIO LDL/HDL ratio 4.5 ratio 0.0-3. 6 above high normal LDL/H DL Ratio Men Women 1/2 Avg.R isk 1.0 1.5 Avg.R isk 3.6 3.2 2X Avg.R isk 6.2 5.0 3X Avg.R isk 8.0 6.1 Not Available [facility] ([facility]) [address] [place], [address], 08/09/2024 03:37:30 08/03/20 24 08/04/2024 COMP. METAB OLIC PANEL (14) glucose 106 mg/dL 70-99 above high normal Not Available [facility] ([facility]) [address] [place], [address], 08/09/2024 03:37:31 08/03/20 24 08/04/2024 COMP. METAB OLIC PANEL (14) BUN 13 mg/dL 6-24 Not Available [facility] ([facility]) [address] [place], [address], 08/09/2024 03:37:31 08/03/20 24 08/04/2024 COMP. METAB OLIC PANEL (14) creatinine 1.05 mg/dL 0.76-1 .27 Not Available [facility] ([facility]) [address] [place], [address], 08/09/2024 03:37:31 08/03/20 24 08/04/2024 COMP. METAB OLIC PANEL (14) eGFR 85 mL/mi n/1.7 3 >59 Not Available [facility] ([facility]) [address] [facility], [place], [address], 08/09/2024 03:37:31 08/03/20 24 08/04/2024 COMP. METAB OLIC PANEL (14) BUN/creatini ne ratio 12 9-20 Not Available [facility] ([facility]) [address] [facility], [place], [address], 08/09/2024 03:37:31 08/03/20 24 08/04/2024 COMP. METAB OLIC PANEL (14) sodium 138 mmol/ L 134-14 4 Not Available [facility] ([facility]) [address] [facility], [place], [address], 08/09/2024 03:37:31 08/03/20 24 08/04/2024 COMP. METAB OLIC PANEL (14) potassium 4.7 mmol/ L 3.5-5. 2 Not Available [facility] ([facility]) [address] [facility], [place], [address], 08/09/2024 03:37:31 08/03/20 24 08/04/2024 COMP. METAB OLIC PANEL (14) chloride 102 mmol/ L 96-106 Not Available [facility] ([facility]) [address] [facility], [place], [address], 08/09/2024 03:37:31 08/03/20 24 08/04/2024 COMP. METAB OLIC PANEL (14) carbon dioxide, total 26 mmol/ L 20-29 Not Available [facility] ([facility]) [address] [facility], [place], [address], 08/09/2024 03:37:31 08/03/20 24 08/04/2024 COMP. METAB OLIC PANEL (14) calcium 9.2 mg/dL 8.7-10 .2 Not Available [facility] ([facility]) [address] [facility] [place], [address], 08/09/2024 03:37:31 08/03/20 24 08/04/2024 COMP. METAB OLIC PANEL (14) protein, total 7.0 g/dL 6.0-8. 5 Not Available [facility] ([facility]) [address] [facility], [place], [address], 08/09/2024 03:37:31 08/03/20 24 08/04/2024 COMP. METAB OLIC PANEL (14) albumin 4.3 g/dL 3.8-4. 9 Not Available [facility] ([facility]) [address], [place], [address], 08/09/2024 03:37:31 08/03/20 24 08/04/2024 COMP. METAB OLIC PANEL (14) globulin, total 2.7 g/dL 1.5-4. 5 Not Available [facility] ([facility] [address] [facility] [place], [address], 08/09/2024 03:37:31 08/03/20 24 08/04/2024 COMP. METAB OLIC PANEL (14) bilirubin, total 0.7 mg/dL 0.0-1. 2 Not Available [facility] ([facility]) [address] [facility] [place], [address], 08/09/2024 03:37:31 08/03/20 24 08/04/2024 COMP. METAB OLIC PANEL (14) alkaline phosphatase 72 IU/L 44-121 Not Available [facility] ([facility]) [address] [facility], [place], [address], 08/09/2024 03:37:31 08/03/20 24 08/04/2024 COMP. METAB OLIC PANEL (14) AST (SGOT) 25 IU/L 0-40 Not Available [facility] ([facility]) [address] [place], [address], 08/09/2024 03:37:31 08/03/2008/04/2024 COMP. METAB OLIC PANEL (14) ALT (SGPT) 26 IU/L 0-44 Not Available [facility] ([facility]) [address] [place], [address], 08/09/2024 03:37:31 08/03/20 24 08/04/2024 VITAM IN B12 AND FOLAT E vitamin B12 465 pg/mL 232-12 45 Not Available [facility] ([facility]) [address] [facility] [place], [address], 08/09/2024 03:37:32 08/03/2008/04/2024 VITAM IN B12 AND FOLAT E folate (folic acid), serum 5.0 NG/mL >3.0 A serum folat e lashonda ntrat ion of less than 3.1 ng/mL is consi dered to repre sent clini leobardo defic iency . Not Available [facility] ([facility]) [address] [place] [place], [address], 08/09/2024 03:37:32 08/03/20 24 08/04/2024 HEMOG LOBIN A1C hemoglobin A1C 5.9 % 4.8-5. 6 above high normal Predi abete s: 5.7 - 6.4 Diabe omar: >6.4 Glyce hardy contr ol for adult s with diabe omar: <7.0 Not Available [facility] ([facility]) [address] [facility] [place], [address], 08/09/2024 03:37:34 08/03/20 24 08/04/2024 INSUL IN insulin 23.5 uIU/m L 2.6-24 .9 Not Available [facility] ([facility]) [address] [facility] [place], [address], 08/09/2024 03:37:35 08/03/20 24 08/04/2024 CBC WITH DIFFE RENTI AL/PL ATELE T WBC 5.1 x10e3 /uL 3.4-10 .8 Not Available [facility] ([facility]) [address] [facility], [place], [address], 08/09/2024 03:37:36 08/03/2008/04/2024 CBC WITH DIFFE RENTI AL/PL ATELE T RBC 4.76 x10e6 /uL 4.14-5 .80 Not Available [facility] ([facility]) [address] [facility], [place], [address], 08/09/2024 03:37:36 08/03/2008/04/2024 CBC WITH DIFFE RENTI AL/PL ATELE T hemoglobin 14.0 g/dL 13.0-1 7.7 Not Available [facility] ([facility]) [address] [facility], [place], [address], 08/09/2024 03:37:36 08/03/20 24 08/04/2024 CBC WITH DIFFE RENTI AL/PL ATELE T hematocrit 43.3 % 37.5-5 1.0 Not Available [facility] ([facility]) [address] [facility], [place], [address], 08/09/2024 03:37:36 08/03/20 24 08/04/2024 CBC WITH DIFFE RENTI AL/PL ATELE T MCV 91 fL 79-97 Not Available [facility] ([facility]) [address] [place], [address], 08/09/2024 03:37:36 08/03/20 24 08/04/2024 CBC WITH DIFFE RENTI AL/PL ATELE T MCH 29.4 pg 26.6-3 3.0 Not Available [facility] ([facility]) [address] [facility], [place], [address], 08/09/2024 03:37:36 08/03/20 24 08/04/2024 CBC WITH DIFFE RENTI AL/PL ATELE T MCHC 32.3 g/dL 31.5-3 5.7 Not Available [facility] ([facility]) [address] [facility], [place], [address], 08/09/2024 03:37:36 08/03/2008/04/2024 CBC WITH DIFFE RENTI AL/PL ATELE T RDW 12.6 % 11.6-1 5.4 Not Available [facility] ([facility]) [address] [facility], [place], [address], 08/09/2024 03:37:36 08/03/2008/04/2024 CBC WITH DIFFE RENTI AL/PL ATELE T platelets 221 x10e3 /uL 150-45 0 Not Available [facility] ([facility]) [address] [facility], [place], [address], 08/09/2024 03:37:36 08/03/20 24 08/04/2024 CBC WITH DIFFE RENTI AL/PL ATELE T neutrophils 70 % notest ab. Not Available [facility] ([facility]) [address] [facility], [place], [address], 08/09/2024 03:37:36 08/03/20 24 08/04/2024 CBC WITH DIFFE RENTI AL/PL ATELE T lymphs 21 % notest ab. Not Available [facility] ([facility]) [address] [facility], [place], [address], 08/09/2024 03:37:36 08/03/20 24 08/04/2024 CBC WITH DIFFE RENTI AL/PL ATELE T monocytes 6 % notest ab. Not Available [facility] ([facility]) [address] [facility], [place], [address], 08/09/2024 03:37:36 08/03/20 24 08/04/2024 CBC WITH DIFFE RENTI AL/PL ATELE T eos 3 % notest ab. Not Available [facility] ([facility]) [address] [facility], [place], [address], 08/09/2024 03:37:36 08/03/20 24 08/04/2024 CBC WITH DIFFE RENTI AL/PL ATELE T basos 0 % notest ab. Not Available [facility] ([facility]) [address] [facility], [place], [address], 08/09/2024 03:37:36 08/03/2008/04/2024 CBC WITH DIFFE RENTI AL/PL ATELE T neutrophils (absolute) 3.5 x10e3 /uL 1.4-7. 0 Not Available [facility] ([facility]) [address] [facility], [place], [address], 08/09/2024 03:37:36 08/03/20 24 08/04/2024 CBC WITH DIFFE RENTI AL/PL ATELE T lymphs (absolute) 1.1 x10e3 /uL 0.7-3. 1 Not Available [facility] ([facility]) [address] [facility], [place], [address], 08/09/2024 03:37:36 08/03/20 24 08/04/2024 CBC WITH DIFFE RENTI AL/PL ATELE T monocytes(ab solute) 0.3 x10e3 /uL 0.1-0. 9 Not Available [facility] ([facility]) [address] [facility], [place], [address], 08/09/2024 03:37:36 08/03/20 24 08/04/2024 CBC WITH DIFFE RENTI AL/PL ATELE T eos (absolute) 0.2 x10e3 /uL 0.0-0. 4 Not Available [facility] ([facility]) [address] [place], [address], 08/09/2024 03:37:36 08/03/20 24 08/04/2024 CBC WITH DIFFE RENTI AL/PL ATELE T baso (absolute) 0.0 x10e3 /uL 0.0-0. 2 Not Available [facility] ([facility]) [address] [facility], [place], [address], 08/09/2024 03:37:36 08/03/20 24 08/04/2024 CBC WITH DIFFE RENTI AL/PL ATELE T immature granulocytes 0 % notest ab. Not Available [facility] ([facility]) [address] [facility], [place], [address], 08/09/2024 03:37:36 08/03/20 24 08/04/2024 CBC WITH DIFFE RENTI AL/PL ATELE T immature grans (abs) 0.0 x10e3 /uL 0.0-0. 1 Not Available [facility] ([facility]) [address] [facility], [place], [address], 08/09/2024 03:37:36 08/03/2008/04/2024 PROST ATE-S PECIF IC [...] gloria goodwin disea se. Not Available [facility] ([facility]) [address] [facility], [place], [address], 08/09/2024 03:37:37 Result Notes None recorded. Problems Name Problem SNOMED Code Status Onset Date Resolution Date Notes Provider Name and Address Organization Details Recorded Time Body mass index 30+ - obesity 568991179 Active 2023 Adalberto Saini MA null, [place] [facility] 4 16:25:36 Cardiac defibrillator in situ 173986954 Active 2023 ISABEL De Oliveira Attn: Sobeida alexander,[address] [facility], [place], [address], [facility] - [facility] 4 16:47:29 Obesity 570923280 Active 2023 ISABEL De Oliveira Attn: Sobeida alexander,[address] [place], [address], [facility] - [facility] 4 16:47:30 Family history of Cardiomyopathy 103100229 Active 2023 ISABEL De Oliveira Attn: Sobeida g,[address] [facility], [place], [address], [facility] 4 16:50:43 Benign essential hypertension 6280951 Active 2023 ISABEL De Oliveira Attn: Sobeida g,[address] [place], [address], [facility] 4 17:03:34 Long-term drug therapy Active 2023 ISABEL De Oliveira Attn: Sobeida alexander,[address] [place], [address], [facility] - [facility] 4 09:14:26 Problem Notes None recorded. Procedures Surgical History Date Name Laterality Status Provider Name and Address Organization Details Recorded Time Back Surgery completed Adalberto Saini MA [facility] 07/31/2024 16:25:24 Defibrillator completed Adalberto Saini MA [facility] 07/31/2024 16:25:27 Imaging Results None recorded. [...] Details Last Updated DateTime 4 18 /min 359369. 62 g 35.5 kg/m2 180.34 cm 96 % 96 % 98 /min 130 mm[Hg] 78 mm[Hg] Adalberto Saini MA [facility] 16:27:32 Social History Question Answer Notes LastModified by Organizat ion Details LastModified Time Tobacco Smoking Status Never Smoker Adalberto Saini MA null, [facility] 07/31/2024 16:24:58 Do You Have An Advance [...] Anxious, Or Unable To Sleep At Night)? [id number] Information not available 07/31/2024 Do You Use [...] Skin Problems N Anemia N Heart Attack ([place]) N Anxiety Disorder N Diabetes N Muscle, Joint, or Bone Problems N Seizures/Epilepsy N Have you had a colonoscopy in the last 1 0 years? N Acid Reflux (GERD) N Cancer N Stroke N Asthma N Allergies N Have you had a PSA blood test in the las t year? N High Cholesterol N Hepatitis N Liver Disease N Headaches N Osteoporosis N Heart Failure N Past Encounters Encounter ID Performer Location Encounter Start Date Encounter Closed Date Diagnosis/Indication Diagnosis SNOMED-CT Code Diagnosis ICD10 Code Diagnosis Note [id number] ISABEL De Oliveira [facility] [place] [address] [place] [address] 07/31/2024 15:30:45 08/09/2024 11:54:11 Body mass index 30+ - obesity 241810909 Z68.35 BMI is 35.5. Screening insulin level fasting ordered Obesity 046023823 E66.9 discussed healthy diet, exercise, controllin g carbohydra omar and added sugars in the diet Cardiac de fibrillator in situ 721878300 Z95.810 Patient recently has cardiac defibrilla tor in place with incision site clean dry and intact Family his tory of Cardiomyopathy 449444643 Z82.49 Family history is strong for cardiomyop athy with a few cases of sudden and a younger sister that went into cardiac arrest and patient testing positive for gene at risk Benign ess ential hypertension 5128841 I10 Patient's blood pressure is well-maint ained on regimen by Cardiology Screening for malignant neoplasm of prostate 915167687 Z12.5 Annual PSA is due Cholesterol screening 27 2962289 Z13.220 Fasting lipid panel due Diabetes m ellitus screening 005087073 Z13.1 Diabetes screening due Long-term drug therapy 377036830 Z79.891 Routine CBC, CMP, TSH T4 and vitamins ordered Endocrine/ metabolic screening 042607170 Z13.228 Screening testostero ne ordered Adult heal th examination 083669637 Z00.01 Wellness exam completed Health Concerns Section Related Observation LastModified by Organization Detai ls LastModified Time None Recorded Concern Status LastModified by Organization Details LastModified Time None Recorded Advance Directives Directive N: Payers Encounter Date Sequence Insurance Name Policy Number Policy Lynch Covered Member ID Lynch Member ID Guarantor Name 07/31/2024 1 [place] [id number] Quinones [id number] Dk Quinones Notes Date Note Type [...] such. ISABEL De Oliveira Attn: Accounting,[address] [place], [address], [facility] 08/20/2024 09:15:02
--- OUTSIDE RECORDS SUMMARY | 2025-02-17 19:19 | XMS_ITS | Clinical Summary ---
Author Organization [facility] Address [address] [place] [address] Care Team Providers Care Learning And Development Consultant Name Role Phone Buster Pearson MD Primary Care Provider [phone] Source Comments [facility],non-owned Affiliates and Associated Physician Practices is amultiple site organization consisting of ambulatory clinics and hospital sitesin [place], [place], [place] and [place]. This disclosure is being madepursuant to the Care Everywhere program and may not contain all information available regarding this patient. Last updated 18.[facility] Allergies No known active allergies Medications * Be aware that medications may not be up to date on this document. Alwaysverify current medications with the patient. Ivermectin (Soolantra) 1 %Indications:Ot her rosacea 1 Each by Apply externally route once daily 45 g 11 4 Active metroNIDAZOLE (Metrogel) 0.75 % gel Apply to areas prone to redness, breakouts bid. 30 DS 45 g 11 4 Active clindamycin (Cleocin) 1 % lotionIndicatio ns:Acne vulgaris Apply to affected area on chest daily. 30 day supply. 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 Social History Tobacco Use Types Packs/Day Years Used Date Smoking Tobacco: Never Smokeless Tobacco: Never Tobacco Cessation:Counseling Given: Not Answered Sex and Gender Information Value Date Recorded Sex Assigned at Not on file Legal Sex Male 6:29 AM [facility] Gender Identity Not on file Sexual Orientation Not on file Plan of Treatment Upcoming Encounters Date Type Department Care Team (Late st Contact Info) Description 06/14/2025 3:00 PM CDT Office Visit [facility] - Dermatology [address] [place] [address], [facility] [place] [address] Max Yuan MD [address] [place] [address] [place] [address] Health Maintenance Due Date Last Done Comments [...] VACCINE (1 - 2023-2 5 season) 2024 DEPRESSION SCREENING 10/31/2024 INFLUENZA VACCINE (Season Ended) 2025 10/31/19 15 HIB VACCINE Aged Out No longer eligi [...] on patient's age to complete this topic Insurance Care Teams Learning And Development Consultant Relationship Specialty Start Date End Date Buster Pearson MD [facility] [place] [address] PCP - General 03/07/23
--- OUTSIDE RECORDS SUMMARY | 2025-02-17 19:19 | XMS_ITS | Referral Summary ---
Author Organization [facility] Address [address] [place] [phone] Care Team Providers Care Pension Administrator Name Role Phone Rome Jacobson MD Primary Care Provider [phone] Filipe Briggs MD Unavailable [phone] Encounters Date Type Department Care Team Description 02/14/2025 Telephone [facility] Orthopaedic Surgery [address] [facility] Medical Office Building [address] [place] [address] Forrest Regan MD post-op questions 02/06/2025 9:50 AM CDT - 02/09/2025 1:00 PM CDT Hospital Encounter [facility] [address] [place] [phone] Forrest Regan MD Lumbar stenosis with neurogenic claudication [M48.062] (Primary Dx) Discharge Disposition: Discharge to home or self care 02/06/2025 11:45 AM CDT - 02/06/2025 6:45 PM CDT Surgery [facility] Operating Room [address] [place] [phone] Forrest Regan MD L2-4 Posterior Spinal fusion L3-L4 Decompressive Laminectomy/Foraminot caio; revision right sided L5-S1 deompression and foraminotomy L2-S1 instrumentation 02/06/2025 2:29 PM CDT Anesthesia Event [facility] Operating Room [address] [place] [phone] aMx Mendez DO Bleeker, Grant Nicholas, MD 02/04/2025 2:57 PM CDT - 02/04/2025 11:59 PM CDT Hospital Encounter [facility] [address] [place] [address] [address] [place] Quevedo [phone] Lumbar radiculopathy; Fusion of spine of lumbar region; Radiculopathy of lumbar region Discharge Disposition: Discharge to home or self care 02/04/2025 3:20 PM CDT Office Visit [facility] Orthopaedic Surgery [address] [place] [address] Medical Office Building [address] [place] [phone] Forrest Regan MD Lumbar radiculopathy (Primary Dx); Fusion of spine of lumbar region; Radiculopathy of lumbar region; Degenerative lumbar spinal stenosis 02/01/2025 Documentation [facility] Orthopaedic Surgery [address] [place] [address] Medical Office [facility] [address] [place] [phone] Alisa eJnsen RN 01/29/2025 3:23 PM CDT - 01/29/2025 11:59 PM CDT Hospital Encounter [facility] [address] [place] [address] Discharge Disposition: Discharge to home or self care 01/29/2025 3:05 PM CDT - 01/29/2025 11:59 PM CDT Hospital Encounter [facility] [address] [place] [address] Discharge Disposition: Discharge to home or self care 01/18/2025 Orders Only [facility] Pre Anesthesia Testing [address] [place] [phone] Farzad Anthony MD 01/17/2025 Telephone [facility] Pre Anesthesia Testing [address] [place] [phone] Tracey Fischer RN 01/16/2025 2:15 PM CDT - 01/16/2025 11:59 PM CDT Hospital Encounter [facility] - Imaging [address] [place] [phone] Fusion of spine of lumbar region; 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, unspecified fracture morphology, subsequent encounter; Spinal stenosis of lumbar region, unspecified whether neurogenic claudication present; Lumbar radiculopathy Discharge Disposition: Discharge to home or self care 01/16/2025 2:30 PM CDT Pre-Admission Testing [facility] Pre Anesthesia Testing [facility] [place] [phone] Preop testing (Primary Dx); Spinal stenosis, lumbar region, with neurogenic claudication; Lumbar radiculopathy 01/09/2025 Orders Only [facility] Orthopaedic Surgery [address] [place] [address] Office Building [address] [place] [phone] Forrest Regan MD Fusion of spine of lumbar region (Primary Dx); 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, unspecified fracture morphology, subsequent encounter; Spinal stenosis of lumbar region, unspecified whether neurogenic claudication present; Lumbar radiculopathy 01/07/2025 2:29 PM CDT - 01/07/2025 11:59 PM CDT Hospital Encounter [facility] [facility] [address] [place] [phone] Fusion of spine of lumbar region Discharge Disposition: Discharge to home or self care 01/07/2025 3:00 PM CDT Office Visit [facility] Orthopaedic Surgery [address] [place] [address] Medical Office Building [address] [place] [phone] Forrest Regan MD 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, unspecified fracture morphology, subsequent encounter (Primary Dx); Fusion of spine of lumbar region; Spinal stenosis of lumbar region, unspecified whether neurogenic claudication present; Lumbar radiculopathy 12/19/2024 Telephone [facility] Orthopaedic Surgery [address] [place] [address] [facility] 6th [place] [address] [place] [address] Forrest Regan MD injection 12/05/2024 Telephone [facility] Orthopaedic Surgery [facility] 6th [place] [address] [place] [address] Forrest Regan MD injection follow up 11/28/2024 1:32 PM INSOLE CHANNELER - 11/28/2024 11:59 PM INSOLE CHANNELER Hospital Encounter [facility] at the [facility] [address] [facility] [address] [place] [address] Jojo Oviedo MD Radiculopathy of lumbar region (Primary Dx); Fusion of spine of lumbar region; Degenerative lumbar spinal stenosis; Lumbar radiculopathy Discharge Disposition: Discharge to home or self care 11/26/2024 Telephone [facility] [address] [facility] [address] [place] [address] Jojo Oviedo MD PMC Preprocedure from Last 3 Months Allergies No known [...] (two) times a day with meals Active gabapentin (NEURONTIN) 300 mg capsule Take 1 capsule (300 mg total) by mouth 3 (three) times a day 90 capsule 2 5 02/10/20 26 Active senna (SENOKOT) 8.6 mg tablet Take 2 tablets by mouth daily Hold for diarrhea 60 tablet 5 03/11/20 25 Active oxyCODONE (ROXICODONE) 10 mg tabletIndicatio ns:Pain Take 1 tablet (10 mg total) by mouth every 4 (four) hours as needed for pain 40 tablet 5 Active baclofen (LIORESAL) 10 mg tablet Take 1 tablet (10 mg total) by mouth every 8 (eight) hours as needed for muscle spasms 90 tablet 04/18/202 5 Active cyclobenzaprine (FLEXERIL) 5 mg tablet Take 1 tablet (5 mg total) by mouth 3 (three) times a day as needed for muscle spasms 60 tablet 1 5 02/16/20 Discontinu ed(Alterna te therapy) oxyCODONE (ROXICODONE) 10 mg tabletIndicatio ns:Pain Take 1 tablet (10 mg total) by mouth every 4 (four) hours as needed for pain 40 tablet 5 02/16/20 Discontinu ed(Reorder ) Active Problems Problem Noted Date Diagnosed Date Lumbar stenosis with neurogenic claudication 07/2025 Spinal stenosis, lumbar herb on, with neurogenic claudication 01/09/2025 Lumbar radiculopathy 01/09/2025 Cardiomyopathy 01/07/2025 AURELIO (obstructive sleep apnea) 01/07/2025 Snoring 01/07/2025 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 06/12/2024 Acne vulgaris 02/07/2024 Other rosacea 02/07/2024 Xerosis cutis 02/07/2024 Diplopia 10/24/2023 Assessment & Plan (01/06/2024 4:10 PM INSOLE CHANNELER): -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 (+)borderline HTN -small ET flick today; asymptomatic -pt was having horizontal diplopia x 1-2 weeks; also resolved -ocular health otherwise unremarkable today OU -ok to continue care at outside [facility] for glasses/CTL fittings -RTC here prn Pseudarthrosis following spinal fusion 3 Pseudoarthrosis of lumbar spine 07/20/2023 Spondylosis of lumbar region without myelopathy or radiculopathy 07/20/2023 Chronic low back pain 01/12/2023 Folliculitis 01/12/2023 Hyperlipidemia 01/12/2023 Impaired glucose tolerance 01/12/2023 Intermittent dysphagia 01/12/2023 Pyelonephritis 12/17/2022 Sinus tachycardia 12/11/2021 Assessment & Plan (12/11/2021 6:43 PM INSOLE CHANNELER): Patient reports history of baseline tachycardia. Suspect [...] 12/11/2021 Assessment & Plan (12/11/2021 6:43 PM INSOLE CHANNELER): Resolved with IVF, likely dehydration. Acute sciatica 12/05/2021 Degeneration of lumbar intervertebral disc 12/05 History of thrombocytopenia 12/02/2021 At risk for obstructive sleep apnea 12/02/2021 Herniation of intervertebral disc between L5 and S1 11/30/2021 Overview (11/30/2021): Added automatically from request for surgery [id number] Neuroforaminal stenosis of lumbosacral spine Overview (11/13/2021): Added automatically from request for surgery [id number] Cerebral ventriculomegaly 07/14/2021 Acute respiratory failure with hypoxia 1 Obesity 07/14/2021 NICOLE (acute kidney injury) 07/14/2021 Acute hyponatremia 07/14/2021 Assessment & Plan (12/11/2021 6:44 PM INSOLE CHANNELER): Likely related to hypovolemia. Expect will improve [...] (02/20/2020): Added automatically from request for surgery [id number] Assessment & Plan (12/11/2021 6:40 PM INSOLE CHANNELER): S/p L5-S1 decompression, L5-S1 TLIF, L4-S1 PSF by Dr. Drake on 12/09. Defer management to orthopedic primary team. Lumbar disc herniation with radiculopathy 2019 Overview (02/20/2020): Added automatically from request for surgery [id number] Near syncope Delayed emergence from general anesthesia Immunizations Immunization Administration Dates Next Due Influenza, Unspecified 10/31/2014 Tdap 06/02/2022 Social History Tobacco Use Types Packs/Day Years Used Date Smoking Tobacco: Never Smokeless Tobacco: Never Tobacco Cessation:Counseling Given: Not Answered Alcohol Use Standard Drinks/Week Comments Not Currently 0 (1 standard drink = 0.6 oz pur e alcohol) [facility] [email or web address] Answer Date Recorded In the past 12 months has zEconomy, gas, oil, or water Beamly threatened to shut off services in your home? No 02/07/2025 Social Connection and Isolat ion Panel [NHANES] Answer Date Recorded In a typical week, how many times do you talk on the phone with family, friends, or neighbors? More than three times a week 02/07/2025 How often do you get togethe r with friends or relatives? Twice a week 02/07/2025 How often do you attend chur or temple services? Never 02/07/2025 Do you belong to any clubs o r organizations such as christianity groups, unions, fraternal or athletic groups, or school groups? No 02/07/2025 How often do you attend meet ings of the clubs or organizations you belong to? Never 02/07/2025 Are you , , di vorced, , never , or living with a partner? 02/07/2025 AUDIT-C Answer Date Recorded Q1: How often [...] care, and heating? Not hard at all 02/07/2025 PHQ-2 Answer Date Recorded PHQ-2 Total Score 0 11/16/2023 Hunger Vital Sign Answer Date Recorded Within the past 12 months, y ou worried that your food would run out before you got the money to buy more. Never true 02/08/20 25 Within the past 12 months, t he food you bought just didn't last and you didn't have money to get more. Never true 02/07/2025 PRAPARE - Transportation Answer Date Re corded In the past 12 months, has l ack of transportation kept you from medical appointments or from getting medications? No 01/29 In the past 12 months, has l ack of transportation kept you from meetings, work, or from getting things needed for daily living? No 02/07/2025 Housing Stability Vital Sign Answer Artur e [...] health care facility (including now)? No 11/16/2023 Housing Stability Vital Sign Answer Artur e Recorded In the last 12 months, was t here a time when you were not able to pay the mortgage or rent on time? No 02/07/2025 In the past 12 months, how m any times have you moved where you were living? 0 02/07/2025 At any time in the past 12 m [facility], were you homeless or living in a [place] health care facility (including now)? No 02/07/2025 Personal Safety Answer Date Recorded Have you ever been in or are you currently in a harmful physical or emotional relationship or is someone making you feel afraid or unsafe? Denies 02/06/2025 Sex and Gender Information Value Date Recorded Sex Assigned at Not on file Legal Sex Male 7:39 PM INSOLE CHANNELER Gender Identity Not on file Sexual Orientation Not on file Last Filed Vital Signs Vital Sign Reading Time Taken Comments Blood Pressure 103/64 02/09/2025 7:47 AM CDT Pulse 114 02/09/2025 7:47 AM CDT Temperature 36.8 C (98.3 F) 02/09/2025 7:47 AM CDT Respiratory Rate 16 02/09/2025 7:47 AM CDT Oxygen Saturation 93% 02/09/2025 7:47 AM CDT Inhaled Oxygen Concentration - - Weight 115 kg (253 lb 8.5 oz) 02/06/2025 10:49 A M CDT Height 180.3 cm (5' 11 ) 02/06/2025 10:49 AM CDT Body Mass Index 35.36 02/06/2025 10:49 AM CDT Plan of Treatment Not on file Goals Goal Patient Goal Type Associated Problems Recent Progress Patient-Stated? Author CCM Chronic Pain Care Plan Chronic Care Management Worsening( 1:45 PM INSOLE CHANNELER) Marjorie Blunt RN Note: Problem: Chronic Pain Goals: 1. Minimize further functional decline 2. Maximize quality of life 3. Control pain Strategies: - Activity/exercise program recommendation - Conservative stepwise pain medicine strategy with multi-disciplinary approach - Recommend healthy lifestyle strategies and compensatory methods as needed Medical Devices Implanted Type Area [employer] Worker Device Identifier Shelf Expiration Date Model / Serial / Lot Allosource Crushed Fresh Frozen Cancellous 1-4mm Graft 15ml Bone [id number] - [id number] Implanted:Qty: 1 on 02/06/2025 by Forrest Regan MD at [facility] Bone N/A: Spine Lumbar Allosource 06/20/2028 [id number] / / [id number] Allosource Crushed Fresh Frozen Cancellous 1-4mm Graft 15ml Bone [id number] - [id number] Implanted:Qty: 1 on 02/06/2025 by Forrest Regan MD at [facility] Bone N/A: Spine Lumbar Allosource [id number] 04/04/2028 [id number] / / [id number] [employer] S-Icd A219-07/19/2024 Implanted: 024 (Quantity not on file) ICD Chest Wall [employer] C.R.M. A219 / [id number] / [employer] Rv Lead 3501-07/19/2024 Implanted: 024 by David Maki MD (Quantity not on file) Lead Chest Wall [employer] C.R.M. 3501 / [id number] / Medtronic Inc Cd Horizon Break Off Spinal Screw Set Titanium Nonsterile 5.5 Mm [id number] - [id number] Implanted:Qty: 8 on 02/06/2025 by Forrest Regan MD at [facility] Screw N/A: Spine Lumbar Medtronic Inc [id number] / / Medtronic Inc Screw Spinal Pedicle Multiaxial Cannulated Cd Horizon Solera 7.5x50mm [place] Chromium [id number] - [id number] Implanted:Qty: 3 on 02/06/2025 by Forrest Regan MD at [facility] Screw N/A: Spine Lumbar Medtronic Inc [id number] / / Integra Lifesciences Shelley [id number] Duragen Plus 2x2in Patch Resorbable Suturable Cranial Dura Graft - [id number] Implanted:Qty: 1 on 03/05/2020 by Yamilex Drake MD at [facility] Integra Lif[employer]iences Shelley [id number] 09/29/2022 [id number] / / [id number] Globus Medical 1067.4645 Creo Amp 6.5mm 45mm Cannulated Modular Spine Screw Bone - [id number] Implanted:Qty: 1 on 12/09/2021 by Yamilex Drake MD at [facility] N/A: Spine Lumbar [employer] 1067.4645 / / Creo Screw 6.5x35 Implanted:Qty: 1 on 12/09/2021 by Yamilex Drake MD at [facility] N/A: Spine Lumbar GLOBUS 1067.4635 / / Medtronic Sofamor Danek [id number] Infuse 14mm 23mm Absorbable Sponge Sterile Water Syringe Needle - [id number] Implanted:Qty: 1 on 12/09/2021 by Yamilex Drake MD at [facility] N/A: Spine Lumbar Medtronic Inc 07/01/2023 [id number] / / [id number] Acuity Surgical Inc [id number] - [id number] - [id number] Implanted:Qty: 1 on 12/09/2021 by Yamilex Drake MD at [facility] N/A: Spine Lumbar Acuity [employer] Inc 03/18/2026 [id number] / [id number] / Sea Spine Inc Integra Accell Evo3 Putty Graft 2.5cc Bone Demineralized Bone - [id number] - [id number] Implanted:Qty: 1 on 12/09/2021 by Yamilex Drake MD at [facility] N/A: Spine Lumbar Sea Spine Inc 07/28/2022 / [id number] / [id number] Globus Implanted:Qty: 1 on 12/09/2021 by Yamilex Drake MD at [facility] N/A: Spine Lumbar GLOBUS 10/05/2031 [id number] / / [id number] [employer] 1134.001 Creo Spinal Cap Locking Nonsterile Mis - [id number] Implanted:Qty: 6 on 12/09/2021 by Yamilex Drake MD at [facility] N/A: Spine Lumbar [employer] 1134.0010 / / Glob[employer] 7146.011 Creo Amp Polyaxial Thread Tulip Spine Transfacet Screw Bone Cocr - [id number] Implanted:Qty: 6 on 12/09/2021 by Yamilex Drake MD at [facility] N/A: Spine Lumbar [employer] 7146.0110 / / Gl[employer] 1067.4660 Creo Amp 6.5mm 60mm Modular Cannulated Spine Screw Bone - [id number] Implanted:Qty: 2 on 12/09/2021 by Yamilex Drake MD at [facility] N/A: Spine Lumbar [employer] 1067.4660 / / Gl[employer] 1067.4655 Creo Amp 6.5mm 55mm Cannulated Modular Spine Screw Bone - [id number] Implanted:Qty: 3 on 12/09/2021 by Yamilex Drake MD at [facility] N/A: Spine Lumbar [employer] 1067.4655 / / Lifenet Vivigen Allograft Graft 10 Cc Bone Cortical Cancellous Demineral [facility]1500-003 - [id number] - [id number] Implanted:Qty: 1 on 11/15/2023 by Forrest Regan MD at [facility] N/A: Spine Lumbar Lifenet [id number] 01/07/2024 [facility]1500-003 / [id number] / Musculoskeletal Transplant Od10+ Mm L30 Mm Allograft Frozen Graft Bone Femoral Shaft [id number] - [id number] - [id number] Implanted:Qty: 1 on 11/15/2023 by Forrest Regan MD at [facility] N/A: Spine Lumbar Musculoskeletal Transplant [id number] 11/18/2027 [id number] / [id number] / Medtronic Inc Screw Spinal Anterior Cervical Solid Pyramid 6.5x35mm Titanium [id number] - [id number] Implanted:Qty: 2 on 11/15/2023 by Forrest Regan MD at [facility] N/A: Spine Lumbar Medtronic Inc [id number] / / Medtronic Inc 17mm 17mm Washer Spinal Titanium Bone Graft [id number] - [id number] Implanted:Qty: 2 on 11/15/2023 by Forrest Regan MD at [facility] N/A: Spine Lumbar Medtronic Inc [id number] / / Medtronic Inc Solera Cd Horizon 7.5mm 60mm Multiaxial Spine Screw Bone Cocr [id number] - [id number] Implanted:Qty: 5 on 11/15/2023 by Forrest Regan MD at [facility] N/A: Spine Lumbar Medtronic Inc [id number] / / Medtronic Inc Solera Cd Horizon 7.5mm 55mm Multiaxial Spine Screw Bone Cocr [id number] - [id number] Implanted:Qty: 1 on 11/15/2023 by Forrest Regan MD at [facility] N/A: Spine Lumbar Medtronic Inc [id number] / / Medtronic Inc Cd Horizon Break Off Spinal Screw Set Titanium Nonsterile 5.5 Mm [id number] - [id number] Implanted:Qty: 6 on 11/15/2023 by Forrest Regan MD at [facility] N/A: Spine Lumbar Medtronic Inc [id number] / / Medtronic Inc 5.5mm 60mm Curve David Spinal Nonsterile [id number] - [id number] Implanted:Qty: 1 on 11/15/2023 by Forrest Regan MD at [facility] N/A: Spine Lumbar Medtronic Inc [id number] / / Medtronic Inc 5.5mm 55mm Curve David Spinal Nonsterile [id number] - [id number] Implanted:Qty: 1 on 11/15/2023 by Forrest Regan MD at [facility] N/A: Spine Lumbar Medtronic Inc [id number] / / Medtronic Inc David Spinal Thoracolumbar Straight Cd Horizon 5.6y326sy [place] Chromium [id number] - [id number] Implanted:Qty: 1 on 02/06/2025 by Forrest Regan MD at [facility] N/A: Spine Lumbar Medtronic Inc [id number] / / Procedures Procedure Name Priority Date/Time Associated Diagnosis Comments EGFR Routine 02/09/2025 6:27 AM CDT COMPREHENSIVE METABOLIC PANEL Routine 02/09/2025 6:27 AM CDT CBC WITHOUT DIFFERENTIAL Routine 02/09/2025 6:27 AM CDT XR SCOLIOSIS AP LAT ED Urgent/IP Urgent 02/08/2025 11:07 AM CDT EGFR Routine 02/08/2025 6:05 AM CDT COMPREHENSIVE METABOLIC PANEL Routine 02/08/2025 6:05 AM CDT CBC WITHOUT DIFFERENTIAL Routine 02/08/2025 6:05 AM CDT EGFR Routine 02/07/2025 5:50 AM CDT COMPREHENSIVE METABOLIC PANEL Routine 02/07/2025 5:50 AM CDT CBC WITHOUT DIFFERENTIAL Routine 02/07/2025 5:50 AM CDT EGFR STAT 02/06/2025 9:35 PM CDT BASIC METABOLIC PANEL STAT 02/06/2025 9:35 PM CDT CBC WITHOUT DIFFERENTIAL STAT 02/06/2025 9:35 PM CDT CBC WITHOUT DIFFERENTIAL STAT 02/06/2025 8:51 PM CDT FL FLUOROSCOPY < 1 HOUR IP Routine 02/06/2025 8:45 PM CDT XR SPINE LUMBAR 2 OR 3 VIEWS IP Routine 02/06/2025 8:45 PM CDT XR SPINE LUMBAR 2 OR 3 VIEWS ED Urgent/IP Urgent 02/06/2025 7:27 PM CDT ND AN PROCEDURE PLACEHOLDER Routine 02/06/2025 3:39 PM CDT ND AN PROCEDURE PLACEHOLDER Routine 02/06/2025 3:39 PM CDT ND AN PROCEDURE PLACEHOLDER Routine 02/06/2025 3:39 PM CDT ND AN ELECTIVE ENDOTRACHEAL AIRWAY Routine 02/06/2025 3:39 PM CDT FUSION LUMBAR - POSTERIOR - 4+ LEVELS 02/06/2025 2:29 PM CDT Spinal stenosis, lumbar region, with neurogenic claudication Lumbar radiculopathy B CHECK SAMPLE STAT 02/06/2025 10:16 AM CDT XR SCOLIOSIS 4 OR 5 VW Schedule Routine, Read Routine (OP Routine) 02/04/2025 3:31 PM CDT Lumbar radiculopathy Fusion of spine of lumbar region Radiculopathy of lumbar region CT BODY OUTSIDE REFERENCE Routine 01/29/2025 3:23 PM CDT Diagnosis unknown NEURO CT OUTSIDE REFERENCE Routine 01/29/2025 3:05 PM CDT Diagnosis unknown CT LUMBAR SPINE WO CONTRAST Schedule Routine, [...] Read Routine (OP Routine) 11/28/2024 3:18 PM INSOLE CHANNELER Lumbar radiculopathy TRANSTHORACIC ECHO (TTE) COMPLETE W DOPPLER/CF Routine 11/26/2024 11:05 AM INSOLE CHANNELER from Last 3 Months Results * eGFR (02/09/2025 6:27 AM CDT) eGFR >90 >=60 mL/min/1. 73 m2 Comment: Interpretive Data [...] of Race in Diagnosing Kidney Disease, JASN 2021). The CKD-EPI equation should not be used for patients with unstable renal function and has not been validated in children and those over 70. Current interpretive data was last reviewed 2021. Blood 02/09/2025 6:27 AM CDT 02/09/2025 7:10 AM CDT Albert Bundy MD LAB BLOOD ORDERABLES Final Result Performing Organization Address City/[facility]/ZIP Co de Phone Number [facility] [address] [place] [address] * (ABNORMAL) CBC without differential (02/09/2025 6:27 AM CDT) WBC 8.78 3.80 - 9.90 K/cumm Hgb 8.7(L) 13.0 - 17.5 g/dL [facility] Hct 26.8(L) 38.9 - 50.3 % [facility] Plt 150 150 - 400 K/cumm [facility] MPV 10.3 9.1 - 12.3 fL [facility] RBC 2.93(L) 4.30 - 5.80 M/cumm [facility] MCV 91.5 81.3 - 96.4 fL [facility] MCH 29.7 27.1 - 33.3 pg [facility] MCHC 32.5 32.3 - 35.7 g/dL [facility] RDW CV 13.4 11.1 - 14.9 % [facility] RDW SD 44.9 35.7 - 48.1 fL [facility] NRBC abs 0.00 0.00 - 0.01 K/cumm [facility] Blood 02/09/2025 6:27 AM CDT 02/09/2025 7:11 AM CDT us Albert Bundy MD LAB BLOOD ORDERABLES Final Result Performing Organization Address City/[facility]/ZIP Co de Phone Number [facility] [address] [place] [address] * (ABNORMAL) Comprehensive metabolic panel (02/09/2025 6:27 AM CDT) Sodium 136 135 - 145 mmol/L Potassium, pl 4.0 3.3 - 4.9 mmol/L [facility] Chloride 101 97 - 110 mmol/L [facility] CO2 25 22 - 32 mmol/L [facility] Anion gap 10 2 - 15 mmol/L [facility] BUN 14 6 - 25 mg/dL [facility] Creatinine 0.86 0.80 - 1.30 mg/dL [facility] Glucose 126 70 - 199 mg/dL [facility] Comment: Interpretive Data Fasting glucose [...] interpretive data was last revised 2022. Calcium 8.2(L) 8.5 - 10.3 mg/dL [facility] Bilirubin, total 0.7 0.1 - 1.2 mg/dL [facility] Protein, pl 6.1(L) 6.5 - 8.5 g/dL [facility] Albumin 3.3(L) 3.5 - 5.0 g/dL [facility] Alk phos 45 40 - 130 Units/L [facility] ALT 21 7 - 55 Units/L [facility] AST 26 10 - 50 Units/L [facility] Blood 02/09/2025 6:27 AM CDT 02/09/2025 7:10 AM CDT us Albert Bundy MD LAB BLOOD ORDERABLES Final Result [facility] [address] [place] [address] * XR Scoliosis Ap Lat (02/08/2025 11:07 AM CDT) Anatomical Region Laterality Modality Spine N/A Radio Fluoroscop y 02/08/2025 11:1 7 AM CDT Impressions 02/08/2025 11:20 AM CDT AP and lateral views entire spine are submitted for interpretation, a total of 9 radiographs. There is moderate anterior sagittal imbalance. There is no coronal imbalance or pelvic obliquity. Postoperative changes from posterior fusion of L2-S1 are present, combined interbody at L4-L5 and anterior at L5-S1. Chronic L3 compression deformity. No new acute fracture. A pacemaker lead overlies the left hemithorax. Dictated by: Antelmo Sim MD The radiology attending physician has personally reviewed this study, and had reviewed and/or edited this written report and agrees with it. Electronically signed by: William Rodriguez M.D., MPH Narrative 02/08/2025 11:20 AM CDT EXAMINATION: XR SCOLIOSIS AP AND LATERAL HISTORY: Postoperative COMPARISON: CT from 01/17/2025 Procedure Note William Rodriguez MD - 02/08/2025 EXAMINATION: XR SCOLIOSIS AP AND LATERAL HISTORY: Postoperative COMPARISON: CT from 01/17/2025 IMPRESSION: AP and lateral views entire spine are submitted for interpretation, a total of 9 radiographs. There is moderate anterior sagittal imbalance. There is no coronal imbalance or pelvic obliquity. Postoperative changes from posterior fusion of L2-S1 are present, combined interbody at L4-L5 and anterior at L5-S1. Chronic L3 compression deformity. No new acute fracture. A pacemaker lead overlies the left hemithorax. Dictated by: Antelmo Sim MD The radiology attending physician has personally reviewed this study, and had reviewed and/or edited this written report and agrees with it. Electronically signed by: William Rodriguez M.D., MPH Forrest Regan MD IMG XR PROCEDURES Final Re sult * eGFR (02/08/2025 6:05 AM CDT) eGFR >90 >=60 mL/min/1. 73 m2 Comment: Interpretive Data [...] interpretive data was last reviewed 2021. Blood 02/08/2025 6:05 AM CDT 02/08/2025 6:18 AM CDT us Albert Bundy MD LAB BLOOD ORDERABLES Final Result [facility] [address] [place] [address] * (ABNORMAL) CBC without differential (02/08/2025 6:05 AM CDT) WBC 13.43(H) 3.80 - 9.90 K/cumm Hgb 9.5(L) 13.0 - 17.5 g/dL [facility] Hct 29.0(L) 38.9 - 50.3 % [facility] Plt 168 150 - 400 K/cumm [facility] MPV 10.0 9.1 - 12.3 fL [facility] RBC 3.18(L) 4.30 - 5.80 M/cumm [facility] MCV 91.2 81.3 - 96.4 fL [facility] MCH 29.9 27.1 - 33.3 pg [facility] MCHC 32.8 32.3 - 35.7 g/dL [facility] RDW CV 13.4 11.1 - 14.9 % [facility] RDW SD 44.9 35.7 - 48.1 fL [facility] NRBC abs 0.00 0.00 - 0.01 K/cumm [facility] Blood 02/08/2025 6:05 AM CDT 02/08/2025 6:18 AM CDT us Albert Bundy MD LAB BLOOD ORDERABLES Final Result [facility] [address] [place] [address] * (ABNORMAL) Comprehensive metabolic panel (02/08/2025 6:05 AM CDT) Sodium 137 135 - 145 mmol/L Potassium, pl 4.1 3.3 - 4.9 mmol/L [facility] Chloride 101 97 - 110 mmol/L [facility] CO2 24 22 - 32 mmol/L [facility] Anion gap 12 2 - 15 mmol/L [facility] BUN 15 6 - 25 mg/dL [facility] Creatinine 0.86 0.80 - 1.30 mg/dL [facility] Glucose 140 70 - 199 mg/dL [facility] Comment: Interpretive Data Fasting glucose [...] interpretive data was last revised 2022. Calcium 8.4(L) 8.5 - 10.3 mg/dL [facility] Bilirubin, total 0.5 0.1 - 1.2 mg/dL [facility] Protein, pl 6.5 6.5 - 8.5 g/dL [facility] Albumin 3.6 3.5 - 5.0 g/dL [facility] Alk phos 50 40 - 130 Units/L [facility] ALT 24 7 - 55 Units/L [facility] AST 29 10 - 50 Units/L [facility] Blood 02/08/2025 6:05 AM CDT 02/08/2025 6:18 AM CDT Albert Bundy MD LAB BLOOD ORDERABLES Final Result Performing Organization Address City/[facility]/ZIP Co de Phone Number [facility] [address] Department [place] [address] * eGFR (02/07/2025 5:50 AM CDT) Pathologist [facility] eGFR >90 >=60 mL/min/1. 73 m2 Comment: Interpretive Data [...] of Race in Diagnosing Kidney Disease, JASN 202). The CKD-EPI equation should not be used for patients with unstable renal function and has not been validated in children and those over 70. Current interpretive data was last reviewed 2021. Blood 02/07/2025 5:50 AM CDT 02/07/2025 6:49 AM CDT us Albert Bundy MD LAB BLOOD ORDERABLES Final Result Performing Organization Address City/[facility]/ZIP Co de Phone Number [facility] [address] Department [place] [address] * (ABNORMAL) CBC without differential (02/07/2025 5:50 AM CDT) [facility] WBC 13.67(H) 3.80 - 9.90 K/cumm Hgb 9.3(L) 13.0 - 17.5 g/dL [facility] Hct 28.8(L) 38.9 - 50.3 % [facility] Plt 143(L) 150 - 400 K/cumm [facility] MPV 10.0 9.1 - 12.3 fL [facility] RBC 3.10(L) 4.30 - 5.80 M/cumm [facility] MCV 92.9 81.3 - 96.4 fL [facility] MCH 30.0 27.1 - 33.3 pg [facility] MCHC 32.3 32.3 - 35.7 g/dL [facility] RDW CV 13.0 11.1 - 14.9 % [facility] RDW SD 43.7 35.7 - 48.1 fL [facility] NRBC abs 0.00 0.00 - 0.01 K/cumm [facility] Blood 02/07/2025 5:50 AM CDT 02/07/2025 6:49 AM CDT us Albert Bundy MD LAB BLOOD ORDERABLES Final Result [facility] [address] [place] [address] * (ABNORMAL) Comprehensive metabolic panel (02/07/2025 5:50 AM CDT) [facility] Sodium 138 135 - 145 mmol/L Potassium, pl 4.6 3.3 - 4.9 mmol/L [facility] Chloride 106 97 - 110 mmol/L [facility] CO2 18(L) 22 - 32 mmol/L [facility] Anion gap 14 2 - 15 mmol/L [facility] BUN 12 6 - 25 mg/dL [facility] Creatinine 0.67(L) 0.80 - 1.30 mg/dL [facility] Glucose 133 70 - 199 mg/dL [facility] Comment: Interpretive Data Fasting glucose [...] interpretive data was last revised 2022. Calcium 7.3(L) 8.5 - 10.3 mg/dL [facility] Bilirubin, total 0.6 0.1 - 1.2 mg/dL [facility] Protein, pl 4.7(L) 6.5 - 8.5 g/dL [facility] Albumin 2.8(L) 3.5 - 5.0 g/dL [facility] Alk phos 29(L) 40 - 130 Units/L [facility] ALT 18 7 - 55 Units/L [facility] AST 22 10 - 50 Units/L [facility] Blood 02/07/2025 5:50 AM CDT 02/07/2025 6:49 AM CDT us Albert Bundy MD LAB BLOOD ORDERABLES Final Result [facility] [address] [place] [address] * eGFR (02/06/2025 9:35 PM CDT) eGFR >90 >=60 mL/min/1. 73 m2 Comment: Interpretive Data [...] of Race in Diagnosing Kidney Disease, JASN 202). The CKD-EPI equation should not be used for patients with unstable renal function and has not been validated in children and those over 70. Current interpretive data was last reviewed 2021. Blood 02/06/2025 9:35 PM CDT 02/06/2025 9:44 PM CDT us Albert Bundy MD LAB BLOOD ORDERABLES Final Result [facility] [address] Department [place] [address] * (ABNORMAL) CBC without differential (02/06/2025 9:35 PM CDT) WBC 11.61(H) 3.80 - 9.90 K/cumm Hgb 10.6(L) 13.0 - 17.5 g/dL [facility] Hct 32.4(L) 38.9 - 50.3 % [facility] Plt 134(L) 150 - 400 K/cumm [facility] MPV 9.8 9.1 - 12.3 fL [facility] RBC 3.52(L) 4.30 - 5.80 M/cumm [facility] MCV 92.0 81.3 - 96.4 fL [facility] MCH 30.1 27.1 - 33.3 pg [facility] MCHC 32.7 32.3 - 35.7 g/dL [facility] RDW CV 13.3 11.1 - 14.9 % [facility] RDW SD 44.3 35.7 - 48.1 fL [facility] NRBC abs 0.00 0.00 - 0.01 K/cumm [facility] Blood 02/06/2025 9:35 PM CDT 02/06/2025 9:44 PM CDT us Albert Bundy MD LAB BLOOD ORDERABLES Final Result Performing Organization Address City/[facility]/ZIP Co de Phone Number [facility] [address] Department [place] [address] * (ABNORMAL) Basic metabolic panel (02/06/2025 9:35 PM CDT) [facility] Sodium 135 135 - 145 mmol/L Potassium, pl 4.3 3.3 - 4.9 mmol/L [facility] Chloride 103 97 - 110 mmol/L [facility] CO2 21(L) 22 - 32 mmol/L [facility] Anion gap 11 2 - 15 mmol/L [facility] BUN 16 6 - 25 mg/dL [facility] Creatinine 0.87 0.80 - 1.30 mg/dL [facility] Glucose 184 70 - 199 mg/dL [facility] Comment: Interpretive Data Fasting glucose [...] interpretive data was last revised 2022. Calcium 7.9(L) 8.5 - 10.3 mg/dL [facility] Blood 02/06/2025 9:35 PM CDT 02/06/2025 9:44 PM CDT Albert Bundy MD LAB BLOOD ORDERABLES Final Result [facility] [address] Department [place] [address] * (ABNORMAL) CBC without differential (02/06/2025 8:51 PM CDT) [facility] WBC 9.80 3.80 - 9.90 K/cumm Hgb 10.5(L) 13.0 - 17.5 g/dL [facility] Hct 32.4(L) 38.9 - 50.3 % [facility] Plt 139(L) 150 - 400 K/cumm [facility] MPV 9.5 9.1 - 12.3 fL [facility] RBC 3.52(L) 4.30 - 5.80 M/cumm [facility] MCV 92.0 81.3 - 96.4 fL [facility] MCH 29.8 27.1 - 33.3 pg [facility] MCHC 32.4 32.3 - 35.7 g/dL [facility] RDW CV 13.4 11.1 - 14.9 % [facility] RDW SD 45.5 35.7 - 48.1 fL [facility] NRBC abs 0.00 0.00 - 0.01 K/cumm [facility] Blood 02/06/2025 8:51 PM CDT 02/06/2025 8:57 PM CDT Max Mendez DO LAB BLOOD ORDERABLES Fin al Result Performing Organization Address [facility]/ZIP Co de Phone Number [facility] [address] [place] [address] * FL Fluoroscopy < 1 Hour (02/06/2025 8:45 PM CDT) Narrative [facility] - 02/06/2025 8:46 PM CDT The images from this study are not interpreted by Radiology. Please refer to the physician's procedure / OR operative note. Forrset Regan MD IMG FLUOROSCOPY PROCEDURES Final Result Performing Organization Address [facility]/ZIP Co de Phone Number [facility] * XR Spine Lumbar 2 or 3 Views (02/06/2025 8:45 PM CDT) Anatomical Region Laterality Modality Spine N/A Computed Radiogr aphy 02/07/2025 6:38 AM CDT Impressions 02/07/2025 6:38 AM CDT FINDINGS/IMPRESSION: 5 intraoperative fluoroscopic images are submitted for review. Redemonstration postoperative changes of L4-S1 posterior instrumented fusion and decompression with L4-L5 interbody fusion device in place. Redemonstration of L5-S1 anterior interbody fusion. Operative changes of extension of posterior fusion and decompression superiorly to L2 with bilateral L2 and single right L3 transpedicular screws. The hardware is grossly intact. Please refer to the dedicated operative report for complete evaluation of real-time findings. Electronically signed by: Clarence Hallman M.D. Narrative 02/07/2025 6:38 AM CDT EXAM: XR SPINE LUMBAR 2 OR 3 VIEWS INDICATION: L4-S1 Hardware Removal; L2-4 Posterior Spinal Decompressive Laminectomy/Foraminotomy; L2-S1/Ilium Posterior Spinal Fusion COMPARISON: Radiograph 02/04/2025 Procedure Note Clarence Hallman MD - 02/07/2025 EXAM: XR SPINE LUMBAR 2 OR 3 VIEWS INDICATION: L4-S1 Hardware Removal; L2-4 Posterior Spinal Decompressive Laminectomy/Foraminotomy; L2-S1/Ilium Posterior Spinal Fusion COMPARISON: Radiograph 02/04/2025 IMPRESSION: FINDINGS/IMPRESSION: 5 intraoperative fluoroscopic images are submitted for review. Redemonstration postoperative changes of L4-S1 posterior instrumented fusion and decompression with L4-L5 interbody fusion device in place. Redemonstration of L5-S1 anterior interbody fusion. Operative changes of extension of posterior fusion and decompression superiorly to L2 with bilateral L2 and single right L3 transpedicular screws. The hardware is grossly intact. Please refer to the dedicated operative report for complete evaluation of real-time findings. Electronically signed by: Clarence Hallman M.D. Forrest Regan MD IMG XR PROCEDURES Final Re sult * XR Spine Lumbar 2 or 3 Views (02/06/2025 7:27 PM CDT) Anatomical Region Laterality Modality Spine N/A Computed Radiogr aphy 02/07/2025 6:36 AM CDT Impressions 02/07/2025 6:36 AM CDT FINDINGS/IMPRESSION: Frontal and lateral intraoperative radiographs of the lumbar spine are submitted for review. Postoperative changes of L2-S1 posterior fusion and decompression with L4-L5 interbody fusion device in place. Anterior interbody fusion L5-S1 hardware again seen. The hardware is grossly intact. Drainage catheter overlies the posterior paraspinal soft tissues. Chronic L3 vertebral body compression deformity again seen. Please refer to the dedicated operative report for complete evaluation of real-time findings. Electronically signed by: Clarence Hallman M.D. Narrative 02/07/2025 6:36 AM CDT EXAM: XR SPINE LUMBAR 2 OR 3 VIEWS INDICATION: L4-S1 Hardware Removal; L2-4 Posterior Spinal Decompressive Laminectomy/Foraminotomy; L2-S1/Ilium Posterior Spinal Fusion COMPARISON: Radiograph 02/06/2025 Procedure Note Clarence Hallman MD - 02/07/2025 EXAM: XR SPINE LUMBAR 2 OR 3 VIEWS INDICATION: L4-S1 Hardware Removal; L2-4 Posterior Spinal Decompressive Laminectomy/Foraminotomy; L2-S1/Ilium Posterior Spinal Fusion COMPARISON: Radiograph 02/06/2025 IMPRESSION: FINDINGS/IMPRESSION: Frontal and lateral intraoperative radiographs of the lumbar spine are submitted for review. Postoperative changes of L2-S1 posterior fusion and decompression with L4-L5 interbody fusion device in place. Anterior interbody fusion L5-S1 hardware again seen. The hardware is grossly intact. Drainage catheter overlies the posterior paraspinal soft tissues. Chronic L3 vertebral body compression deformity again seen. Please refer to the dedicated operative report for complete evaluation of real-time findings. Electronically signed by: Clarence Hallman M.D. Forrest Regan MD IMG XR PROCEDURES Final Re sult * ND AN PROCEDURE PLACEHOLDER (02/06/2025 3:39 PM CDT) Narrative Rosemarie Garber CRNA - 02/06/2025 3:39 PM CDT Rosemarie Garber CRNA 02/06/2025 3:40 PM Arterial Line Patient location: OR Indication: continuous blood pressure monitoring Ultrasound assisted: yes Staff: Placed by: Anesthesiologist: aMx Mendez DO Procedure prep: Prep solution: chlorhexadine/alcohol Prep: provider hat/mask Arterial line: Catheter size: 20 gauge Catheter type: wire-guided catheter Laterality: left Site: radial artery Line secured: tape and Tegaderm Results: good waveform and good blood return Number of attempts: 1 Assessment: Events: patient tolerated procedure well with no complications Max Mendez DO ANESTHESIA ORDERABLES Fi nal Result * ND AN PROCEDURE PLACEHOLDER (02/06/2025 3:39 PM CDT) Rosemarie Stafford CRNA - 02/06/2025 3:39 PM CDT Rosemarie Garber CRNA 02/06/2025 3:39 PM Peripheral IV Catheter Patient location: OR Staff: Placed by: CLASSROOM TECHNOLOGY TECHNICIAN: Rosemarie Garber CRNA Preprocedure prep: Prep solution: chlorhexadine PPE: provider hat/mask and gloves PIV line: Laterality: right Site: forearm Catheter size: 18 g Technique: palpatation Procedure details: occlusive dressing applied and good blood return Number of attempts: 2 Assessment: Events: patient tolerated procedure well with no complications Result [facility] Max Mendez DO ANESTHESIA ORDERABLES Fi nal Result * ND AN ELECTIVE ENDOTRACHEAL AIRWAY, ND AN PROCEDURE PLACEHOLDER (02/06/2025 3:39 PM CDT) Rosemarie Stafford CRNA - 02/06/2025 3:39 PM CDT Rosemarie Garber CRNA 02/06/2025 3:39 PM Airway Patient location: OR Urgency: elective Indications for airway management: anesthesia Difficult airway: no Staff: Placed by: CLASSROOM TECHNOLOGY TECHNICIAN: Rosemarie Garber CRNA Airway prep: Preoxygenated: yes Patient position: sniffing Mask difficulty assessment: 0 - not attempted Sedation level during airway: GA Final airway details: Final airway type: endotracheal airway Tube type: ETT ETT size: 8.0 mm Cuffed: yes Technique used for successful ETT placement: video laryngoscopy Insertion site: oral Blade type: Missy Video blade type: Mena Blade size: 4 Cormack-Lehane (video): grade I - full view of glottis Cuff volume: 8 mL Cuff inflated with: air ETT to lips: 23 cm Placement verified by: auscultation and CO2 detection Airway secured with: silk tape Number of attempts: 1 Planned trial extubation: yes Max Mendez ANESTHESIA ORDERABLES Fi nal Result * Check Sample (02/06/2025 10:16 AM CDT) ABO Rh O Negative MBC HCLL OTHER 02/06/2025 10:1 6 AM CDT 02/06/2025 10:45 AM CDT us Princess Purvis MINE PATROL LAB BLOOD ORDERABLES Fi nal Result [facility] [address] [place] [address] MBC * XR Scoliosis 4 or 5 View (02/04/2025 3:31 PM CDT) Anatomical Region Laterality Modality Spine N/A Computed Radiogr aphy 02/04/2025 4:36 PM CDT Impressions 02/04/2025 4:36 PM CDT 1. No significant scoliosis. 2. Unchanged combined posterior and anterior fusion from L4 to S1. 3. Unchanged chronic L3 vertebral body compression fracture. Electronically signed by: Arnie See D.O. Narrative 02/04/2025 4:36 PM CDT EXAMINATION: XR SCOLIOSIS 4 OR 5 VW HISTORY: back pain COMPARISON: 01/07/2025 FINDINGS: No significant scoliosis. No coronal imbalance or pelvic obliquity. Mild anterior sagittal imbalance. Unchanged posterior decompression and instrumented fusion from L4 to S1 with combined anterior discectomy and instrumented fusion at these levels. The hardware is intact. Normal motion in the lumbar spine on flexion and extension. Unchanged chronic L3 vertebral body compression fracture. No new compression fractures. Partially visualized left-sided cardiac device with intact lead. Procedure Note Arnie See DO - 02/04/2025 EXAMINATION: XR SCOLIOSIS 4 OR 5 VW HISTORY: back pain COMPARISON: 01/07/2025 FINDINGS: No significant scoliosis. No coronal imbalance or pelvic obliquity. Mild anterior sagittal imbalance. Unchanged posterior decompression and instrumented fusion from L4 to S1 with combined anterior discectomy and instrumented fusion at these levels. The hardware is intact. Normal motion in the lumbar spine on flexion and extension. Unchanged chronic L3 vertebral body compression fracture. No new compression fractures. Partially visualized left-sided cardiac device with intact lead. IMPRESSION: 1. No significant scoliosis. 2. Unchanged combined posterior and anterior fusion from L4 to S1. 3. Unchanged chronic L3 vertebral body compression fracture. Electronically signed by: Arnie See D.O. Forrest Regan MD IMG XR PROCEDURES Final Re sult * CT Body Outside Reference (01/29/2025 3:23 PM CDT) Impressions [facility] - 01/29/2025 3:23 PM CDT These images are for Reference purposes only and have not been reviewed by [facility] Radiology. There will be no report generated by a [facility] Radiologist. Narrative [facility] - 01/29/2025 3:23 PM CDT EXAMINATION: Images For Reference Purposes Only Forrest Regan MD [facility] [place] PROCEDURES Final Re sult Performing Organization Address [facility] Co de Phone Number [email or web address] * Neuro CT Outside Reference (01/29/2025 3:05 PM CDT) Impressions [facility] - 01/29/2025 3:05 PM CDT These images are for Reference purposes only and have not been reviewed by [facility] Radiology. There will be no report generated by a [facility] Radiologist. Narrative [facility] - 01/29/2025 3:05 PM CDT EXAMINATION: Images For Reference Purposes Only Forrest Regan MD [facility] [place] CT PROCEDURES Final Re sult Performing Organization Address [facility] Co de Phone Number [email or web address] * CT Lumbar Spine WO Contrast (01/16/2025 [...] gran abs 0.0 0.0 - 0.1 K/cumm [facility] Lymphocyte abs 1.5 0.8 - 3.3 K/cumm [facility] Monocyte abs 0.5 0.2 - 0.8 K/cumm [facility] Eosinophil abs 0.2 0.0 - 0.5 K/cumm [facility] Basophil abs 0.0 0.0 - 0.1 K/cumm [facility] Neutrophil pct 65.1 % [facility] Comment: Interpretive Data Percent cell count reference ranges are not reported, since discordance with absolute values may lead to misinterpretation of CBC data. Current Interpretive Data was last revised on 2018. Imm gran pct 0.5 % [facility] Comment: Interpretive Data Percent cell count reference ranges are not reported, since discordance with absolute values may lead to misinterpretation of CBC data. Current Interpretive Data was last revised on 2018. Lymphocyte pct 23.4 % [facility] Comment: Interpretive Data Percent cell count reference ranges are not reported, since discordance with absolute values may lead to misinterpretation of CBC data. Current Interpretive Data was last revised on 2018. Monocyte pct 8.2 % [facility] Comment: Interpretive Data Percent cell count reference ranges are not reported, since discordance with absolute values may lead to misinterpretation of CBC data. Current Interpretive Data was last revised on 2018. Eosinophil pct 2.3 % [facility] Comment: Interpretive Data Percent cell count reference ranges are not reported, since discordance with absolute values may lead to misinterpretation of CBC data. Current Interpretive Data was last revised on 2018. Basophil pct 0.5 % [facility] Comment: Interpretive Data Percent cell count reference ranges are not reported, since discordance with absolute values may lead to misinterpretation of CBC data. Current Interpretive Data was last revised on 2018. Blood 01/16/2025 3:30 PM CDT 01/16/2025 3:30 PM CDT us Forrest Regan MD LAB BLOOD ORDERABLES Final Result [facility] [address] [place] [address] * (ABNORMAL) CBC with auto differential (01/16/2025 3:30 PM CDT) WBC 6.5 3.8 - 9.9 K/cumm Hgb 14.2 13.0 - 17.5 g/dL [facility] Hct 45.2 38.9 - 50.3 % [facility] Plt 223 150 - 400 K/cumm [facility] MPV 9.8 9.1 - 12.3 fL [facility] RBC 4.95 4.30 - 5.80 M/cumm [facility] MCV 91.3 81.3 - 96.4 fL [facility] MCH 28.7 27.1 - 33.3 pg [facility] MCHC 31.4(L) 32.3 - 35.7 g/dL [facility] RDW CV 13.3 11.1 - 14.9 % [facility] RDW SD 44.4 35.7 - 48.1 fL [facility] NRBC abs 0.00 0.00 - 0.01 K/cumm [facility] Blood 01/16/2025 3:30 PM CDT 01/16/2025 3:30 PM CDT Forrest Regan MD LAB BLOOD ORDERABLES Final Result Performing Organization Address City/[facility]/ZIP Co de Phone Number [facility] [address] [place], [place] [id number] * Erythrocyte sedimentation rate (01/16/2025 3:30 PM CDT) [facility] Erythrocyte sedimentation rate 8 1 - 20 mm/hr Blood 01/16/2025 3:30 PM CDT 01/16/2025 3:30 PM CDT Forrest Regan MD LAB BLOOD ORDERABLES Final Result Performing Organization Address City/[facility]/ZIP Co de Phone Number [facility] [address] [employer] [place], [place] [id number] * (ABNORMAL) Hemoglobin A1c (01/16/2025 3:30 PM CDT) [facility] Hgb A1C 5.7(H) 4.0 - 5.6 % Estimated Average Glucose 117 mg/dL [facility] Comment: The ADA recommends reporting an estimated Average Glucose (eAG) with all Hemoglobin A1c results using the equation derived from a study of 507 normal and diabetic adults. Minority populations were underrepresented and children were not included. (Diabetes Care [id number], 2008). The eAG is not equivalent to a fasting glucose. Blood 01/16/2025 3:30 PM CDT 01/16/2025 3:30 PM CDT Forrest Regan MD LAB BLOOD ORDERABLES Final Result [facility] [address] [facility] [place] [address] * eGFR (01/16/2025 3:29 PM CDT) eGFR 87 >=60 mL/min/1. 73 m2 Comment: [...] Regan MD LAB BLOOD ORDERABLES Final Result [facility] [address] Department [place] [address] * (ABNORMAL) Vitamin D 25 hydroxy (01/16/2025 3:29 PM CDT) Pathologist [facility] Vitamin D 25-OH 20(L) 30 - 80 ng/mL Blood 01/16/2025 3:29 PM CDT 01/16/2025 3:29 PM CDT Forrest Regan MD LAB BLOOD ORDERABLES Final Result Performing Organization Address [facility]/ZIP Co de Phone Number [facility] [place] [id number] [place] [address] * Type and screen (01/16/2025 3:29 PM CDT) [facility] ABO Rh O Negative Lorenza, indirect Negative [facility] Blood 01/16/2025 3:29 PM CDT 01/16/2025 3:34 PM CDT Narrative [facility] - 01/16/2025 4:18 PM CDT Is this test being ordered in advance for a procedure?->Yes Expected date of procedure:->02/06/25 Has the patient been transfused in the past 3 months?->No Princess Purvis NP LAB BLOOD BANK TEST ORD ERABLES Final Result Performing Organization Address [facility]/ZIP Co de Phone Number [facility] [place] [address] [place] [address] * CRP (acute phase) (01/16/2025 3:29 PM CDT) [facility] CRP 3.4 <=10.0 mg/L Blood 01/16/2025 3:29 PM CDT 01/16/2025 3:29 PM CDT Forrest Regan MD LAB BLOOD ORDERABLES Final Result Performing Organization Address [facility]/ZIP Co de Phone Number [facility] [address] [place] [address] * Albumin (01/16/2025 3:29 PM CDT) [facility] Albumin 4.0 3.5 - 5.0 g/dL Blood 01/16/2025 3:29 PM CDT 01/16/2025 3:29 PM CDT Forrest Regan MD LAB BLOOD ORDERABLES Final Result [facility] [address] Department [place] [address] * Comprehensive metabolic panel (01/16/2025 3:29 PM CDT) [facility] Sodium 135 135 - 145 mmol/L Potassium, pl 4.1 3.3 - 4.9 mmol/L [facility] Chloride 99 97 - 110 mmol/L [facility] CO2 24 22 - 32 mmol/L [facility] Anion gap 12 2 - 15 mmol/L [facility] BUN 17 6 - 25 mg/dL [facility] Creatinine 1.02 0.80 - 1.30 mg/dL [facility] Glucose 86 70 - 199 mg/dL [facility] Comment: Interpretive Data Fasting glucose [...] 2022. Calcium 9.0 8.5 - 10.3 mg/dL [facility] Bilirubin, total 0.8 0.1 - 1.2 mg/dL [facility] Protein, pl 7.5 6.5 - 8.5 g/dL [facility] Albumin 4.0 3.5 - 5.0 g/dL [facility] Alk phos 60 40 - 130 Units/L [facility] ALT 30 7 - 55 Units/L [facility] AST 26 10 - 50 Units/L [facility] Blood 01/16/2025 3:29 PM CDT 01/16/2025 3:29 PM CDT Forrest Regan MD LAB BLOOD ORDERABLES Final Result Performing Organization Address City/[facility]/ZIP Co de Phone Number [facility] [address] Department [place] [address] * Urinalysis reflex to microscopic and culture Urine, clean voided (01/16/2025 2:46 PM CDT) Color, ur Yellow Yellow Clarity, ur Clear Clear [facility] Specific gravity, ur 1.024 1.003 - 1.030 [facility] pH, urine 6.5 [facility] Comment: Interpretive Data U rine pH is affected by diet, medications, systemic acid-base disturbances, and renal tubular function. pH may affect urinary stone formation. For example, urine pH below 6.0 may help reduce the tendency for calcium phosphate stones and pH greater than 6.0 may reduce the tendency for uric acid stone formation. Source: [facility] Current Interpretive Data was last revised on 2017 Protein, ur ql Negative Negative [facility] Glucose, ur ql Negative Negative [facility] Ketones, ur Negative Negative [facility] Bilirubin, ur Negative Negative [facility] Blood, ur Negative Negative [facility] Urobilinogen, ur <2.0 <2.0 mg/dL [facility] Nitrite, ur Negative Negative [facility] Leukocyte esterase, ur Negative Negative [facility] UA reflex comment Reflex conditions for microscopic UA and culture not met. [facility] Urine, clean voided 01/16/2025 2:46 PM CDT 01/16/2025 7:09 PM CDT Forrest Regan MD LAB MICROBIOLOGY - GENERAL ORDERABLES Final Result [facility] [address] Department [place] [address] * Nicotine metabolite screen, urine (01/16/2025 2:46 PM CDT) Nicotine, ur <5.0 <5.0 ng/mL [facility] Cotinine, ur <5.0 <5.0 ng/mL [facility] Anabasine ur <2.0 <2.0 ng/mL [facility] Comment: ADDITIONAL INFORMATION This test was developed and its performance characteristics determined by [facility] in a manner consistent with CLIA requirements. This test has not been cleared or approved by the U.S. Food and Drug Administration. Test Performed by: [place] [address] Java Integration Developer: Sybil Escobar Ph.D.; CLIA# [id number] Nornicotine, ur <2.0 <2.0 ng/mL [facility] Urine 01/16/2025 2:46 PM CDT 01/16/2025 9:57 PM CDT Forrest Regan MD LAB URINE ORDERABLES Final Result Performing Organization Address City/State/[facility] Co de Phone Number [facility] [address] [place] [address] [facility] * XR Spine Lumbar Ap Lat [...] Lumbar/Sacral Selective Nerve Root INJ (TFE) Right (48259) (11/28/2024 3:18 PM INSOLE CHANNELER) Narrative [facility] - 11/28/2024 3:18 PM INSOLE CHANNELER The images from this study are not interpreted by Radiology. Please refer to the physician's procedure / OR operative note. us Jojo Oviedo MD IMG PAIN MGMT PROCEDURES F inal Result [facility] * Transthoracic Echo (TTE) Complete W Doppler/CF (11/26/2024 11:05 AM INSOLE CHANNELER) Anatomical Region Laterality Modality Ultrasound us Farzad Anthony MD CV ECHO PROCEDURES Final R esult from Last 3 Months Insurance [place]iv[place] Advance Direct[place] For more information, please contact: [phone] * Full Code (Latest Code Status on File) Date Activated Date Inactivated Comments 02/06/2025 8:17 PM 02/09/2025 5:29 PM * Full Code Date Activated Date Inactivated Comments 11/15/2023 9:54 PM 11/18/2023 9:58 PM * Full Code Date Activated Date Inactivated Comments 11/15/2023 9:38 PM 11/15/2023 9:54 PM * Full Code Date Activated Date Inactivated Comments 10/24/2023 12:49 AM 10/25/2023 7:19 PM * Full Code Date Activated Date Inactivated Comments 12/09/2021 6:52 PM 12/12/2021 4:56 PM Care Teams Pension Administrator Relationship Specialty Start Date End Date Rome Jacobson MD [address] [address] PCP - General Family Medicine 01/07/25 Filipe Briggs MD [address] [place] [address] [address] [facility] [address] Referring Physician Cardiovascular Disease 01/17/25
--- OUTSIDE RECORDS SUMMARY | 2025-02-17 19:19 | XMS_ITS | Clinical Summary ---
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 (+)borderline HTN -small ET flick today; asymptomatic -pt was having horizontal diplopia x 1-2 weeks; also resolved -ocular health otherwise unremarkable today OU -ok to continue care at outside [facility] for glasses/CTL fittings -RTC here prn Pseudarthrosis following spinal fusion 3 Pseudoarthrosis of lumbar spine 07/20/2023 Spondylosis of lumbar region without myelopathy or radiculopathy 07/20/2023 Chronic low back pain 01/12/2023 Folliculitis 01/12/2023 Hyperlipidemia 01/12/2023 Impaired glucose tolerance 01/12/2023 Intermittent dysphagia 01/12/2023 Pyelonephritis 12/17/2022 Sinus tachycardia 12/11/2021 Assessment & Plan (12/11/2021 6:43 PM CLAIMS REPRESENTATIVE): Patient reports history of baseline tachycardia. Suspect [...] 12/11/2021 Assessment & Plan (12/11/2021 6:43 PM CLAIMS REPRESENTATIVE): Resolved with IVF, likely dehydration. Acute sciatica 12/05/2021 Degeneration of lumbar intervertebral disc 12/05 History of thrombocytopenia 12/02/2021 At risk for obstructive sleep apnea 12/02/2021 Herniation of intervertebral disc between L5 and S1 11/30/2021 Overview (11/30/2021): Added automatically from request for surgery [id number] Neuroforaminal stenosis of lumbosacral spine Overview (11/13/2021): Added automatically from request for surgery [id number] Cerebral ventriculomegaly 07/14/2021 Acute respiratory failure with hypoxia 1 Obesity 07/14/2021 NICOLE (acute kidney injury) 07/14/2021 Acute hyponatremia 07/14/2021 Assessment & Plan (12/11/2021 6:44 PM CLAIMS REPRESENTATIVE): Likely related to hypovolemia. Expect will improve [...] (02/20/2020): Added automatically from request for surgery [id number] Assessment & Plan (12/11/2021 6:40 PM CLAIMS REPRESENTATIVE): S/p L5-S1 decompression, L5-S1 TLIF, L4-S1 PSF by Dr. Drake on 12/09. Defer management to orthopedic primary team. Lumbar disc herniation with radiculopathy 2019 Overview (02/20/2020): Added automatically from request for surgery [id number] Near syncope Delayed emergence from general anesthesia Encounters Date Type Department Care Team Description 02/14/2025 Telephone [facility] Orthopaedic Surgery [address] [facility] Office Building [address] [place] [address] Forrest Regan MD post-op questions 02/06/2025 2:29 PM CDT Anesthesia Event Operating Room [address] [place] [phone] Max Mendez DO Bleeker, Grant Nicholas, MD 02/06/2025 11:45 AM CDT - 02/06/2025 6:45 PM CDT Surgery Operating Room [address] [place] [phone] Forrest Regan MD L2-4 Posterior Spinal fusion L3-L4 Decompressive Laminectomy/Foraminot caio; revision right sided L5-S1 deompression and foraminotomy L2-S1 instrumentation 02/06/2025 9:50 AM CDT - 02/09/2025 1:00 PM CDT [facility] [address] [place] [phone] Forrest Regan MD Lumbar stenosis with neurogenic claudication [M48.062] (Primary Dx) Discharge Disposition: Discharge to home or self care 02/04/2025 3:20 PM CDT Office Visit [facility] Orth[facility] [address] [facility] Office Building [address] [place] [phone] Forrest Regan MD Lumbar radiculopathy (Primary Dx); Fusion of spine of lumbar region; Radiculopathy of lumbar region; Degenerative lumbar spinal stenosis 02/04/2025 2:57 PM CDT - 02/04/2025 11:59 PM CDT Hospital Encounter [facility] Radiology [address] [facility] [address] [place] [phone] Lumbar radiculopathy; Fusion of spine of lumbar region; Radiculopathy of lumbar region Discharge Disposition: Discharge to home or self care 02/01/2025 Documentation [facility] [address] [facility] Office [facility] [address] [place] [phone] Alisa Jensen RN 01/29/2025 3:23 PM CDT - 01/29/2025 11:59 PM CDT Hospital Encounter [facility] [address] [place] [address] Discharge Disposition: Discharge to home or self care 01/29/2025 3:05 PM CDT - 01/29/2025 11:59 PM CDT Hospital Encounter [facility] [address] [place] [phone] Discharge Disposition: Discharge to home or self care 01/18/2025 Orders Only Pre Anesthesia Testing [address] [place] [phone] Farzad Anthony MD 01/17/2025 Telephone Pre Anesthesia Testing [address] [place] [phone] Tracey Fischer RN 01/16/2025 2:30 PM CDT Pre-Admission Testing Pre Anesthesia Testing [address] [place] [phone] Preop testing (Primary Dx); Spinal stenosis, lumbar region, with neurogenic claudication; Lumbar radiculopathy 01/16/2025 2:15 PM CDT - 01/16/2025 11:59 PM CDT Hospital Encounter - Imaging [address] [place] [address] Fusion of spine of lumbar region; 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, unspecified fracture morphology, subsequent encounter; Spinal stenosis of lumbar region, unspecified whether neurogenic claudication present; Lumbar radiculopathy Discharge Disposition: Discharge to home or self care 01/09/2025 Orders Only [facility] [address] [facility] Office Building [address] [place] [address] Forrest Regan MD Fusion of spine of lumbar region (Primary Dx); 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, unspecified fracture morphology, subsequent encounter; Spinal stenosis of lumbar region, unspecified whether neurogenic claudication present; Lumbar radiculopathy 01/07/2025 3:00 PM CDT Office Visit [facility] Orth[facility] Surgery [address] [place] [address] Medical Office Building [address] [place] [address] Forrest Regan MD 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, unspecified fracture morphology, subsequent encounter (Primary Dx); Fusion of spine of lumbar region; Spinal stenosis of lumbar region, unspecified whether neurogenic claudication present; Lumbar radiculopathy 01/07/2025 2:29 PM CDT - 01/07/2025 11:59 PM CDT Hospital Encounter [facility] Radiology [address] [place] [address] [address] [place] [address] Fusion of spine of lumbar region Discharge Disposition: Discharge to home or self care 12/19/2024 Telephone [facility] Surgery [address] [facility] 6th [place] [address] [place] [address] Forrest Regan MD injection 12/05/2024 Telephone [facility] [address] [facility] 6th [place] [address] [place] [address] Forrest Regan MD injection follow up 11/28/2024 1:32 PM CLAIMS REPRESENTATIVE - 11/28/2024 11:59 PM CLAIMS REPRESENTATIVE Hospital Encounter [facility] [place] [facility] [address] [facility] [address] [place] [address] Jojo Oviedo MD Radiculopathy of lumbar region (Primary Dx); Fusion of spine of lumbar region; Degenerative lumbar spinal stenosis; Lumbar radiculopathy Discharge Disposition: Discharge to home or self care 11/26/2024 Telephone [facility] at the [facility] [address] [facility] [address] [place] [address] Jojo Oviedo MD PMC Preprocedure from Last 3 Months Immunizations Immunization Administration [...] drink = 0.6 oz pur e alcohol) [facility] Utilities Answer Date Recorded In the past 12 months has th e electric, gas, oil, or water company threatened to shut off services in your [...] 02/07/2025 How often do you attend chur ch or zoroastrian services? Never 02/07/2025 Do you belong to any clubs o r organizations such as jainism groups, unions, fraternal or athletic groups, or [...] place to sleep or slept in a longterm (including now)? No 11/16/2023 Housing Stability Vital Sign Answer Artur e Recorded In the last 12 months, was t here a time when you were not able to pay the mortgage or rent on time? No 02/07/2025 In the past 12 months, how m any times have you moved where you were living? 0 02/07/2025 At any time in the past 12 m [facility], were you homeless or living in a longterm (including now)? No 02/07/2025 Personal Safety Answer Date Recorded Have you ever been in or are you currently in a harmful physical or emotional relationship or is someone making you feel afraid or unsafe? Denies 02/06/2025 Sex and Gender Information Value Date Recorded Sex Assigned at Not on file Legal Sex Male 7:39 PM CLAIMS REPRESENTATIVE Gender Identity Not on file Sexual Orientation [...] 02/06/2025 10:49 AM CDT Plan of Treatment Health Maintenance Due Date Last Done Comments Colon Cancer Screening-Colonoscopy 1970 Hepatitis C Screening 1970 Prostate Cancer Screening-PSA 1970 Hepatitis B Screening 1988 Regular Well Visit/Exam 18-64 1988 Pneumococcal vaccine <65 (1 of 2 - PCV) 1989 Zoster Vaccine (1 of 2) 2020 Depression Screening 08/23/2024 08/23/2023 Influenza Vaccine (Season Ended) 2025 10/31/19 15 DTaP/Tdap/Td Vaccine (2 - Td or Tdap) 06/02/203212/2021 Goals Goal Patient Goal Type Associated Problems Recent Progress Patient-Stated? Author CCM Chronic Pain Care Plan Chronic Care Management Worsening( 1:45 PM CLAIMS REPRESENTATIVE) Marjorie Blunt, RN Note: Problem: Chronic Pain Goals: 1. Minimize further functional decline 2. Maximize quality of life 3. Control pain Strategies: - Activity/exercise program recommendation - Conservative stepwise pain medicine strategy with multi-disciplinary approach - Recommend healthy lifestyle strategies and compensatory methods as needed Medical Devices Implanted Type Area Loss Prevention Detective Device Identifier Shelf Expiration Date Model / Serial / Lot Allosource Crushed Fresh Frozen Cancellous 1-4mm Graft 15ml Bone [id number] - [id number] Implanted:Qty: 1 on 02/06/2025 by Forrest Regan MD at Bone N/A: Spine Lumbar Allosource 06/20/2028 [id number] / / [id number] Allosource Crushed Fresh Frozen Cancellous 1-4mm Graft 15ml Bone [id number] - [id number] Implanted:Qty: 1 on 02/06/2025 by Forrest Regan MD at Bone N/A: Spine Lumbar Allosource [id number] 04/04/2028 [id number] / / [id number] Scenic Scientific S-Icd A219-07/19/2024 Implanted: 024 (Quantity not on file) ICD Chest Wall [employer]enic Scientific C.R.M. A219 / [id number] / Scenic Scientific Rv Lead 3501-07/19/2024 Implanted: 024 by David Maki MD (Quantity not on file) Lead Chest Wall [employer]enic Scientific C.R.M. 3501 / [id number] / Medtronic Inc Cd Horizon Break Off Spinal Screw Set Titanium Nonsterile 5.5 Mm [id number] - [id number] Implanted:Qty: 8 on 02/06/2025 by Forrest Regan MD at Screw N/A: Spine Lumbar Medtronic Inc [id number] / / Medtronic Inc Screw Spinal Pedicle Multiaxial Cannulated Cd Horizon Solera 7.5x50mm [place] Chromium [id number] - [id number] Implanted:Qty: 3 on 02/06/2025 by Forrest Regan MD at Screw N/A: Spine Lumbar Medtronic Inc [id number] / / Language123a EatWithciEUROBOX Shelley [id number] Duragen Plus 2x2in Patch Resorbable Suturable Cranial Dura Graft - [id number] Implanted:Qty: 1 on 03/05/2020 by Yamilex Drake MD at [facility] Language123a [employer]WithciEUROBOX Shelley [id number] 09/29/2022 [id number] / / [id number] Globus Medical 1067.4645 Creo Amp 6.5mm 45mm Cannulated Modular Spine Screw Bone - [id number] Implanted:Qty: 1 on 12/09/2021 by Yamilex Drake MD at [facility] N/A: Spine Lumbar Globus Medical 1067.4645 / / Creo Screw 6.5x35 Implanted:Qty: 1 on 12/09/2021 by Yamilex Drake MD at [facility] N/A: Spine Lumbar GLOBUS 1067.4635 / / Medtronic Sofamor [place] [id number] Infuse 14mm 23mm Absorbable Sponge Sterile Water Syringe Needle - [id number] Implanted:Qty: 1 on 12/09/2021 by Yamilex Drake MD at [facility] N/A: Spine Lumbar Medtronic Inc 07/01/2023 [id number] / / [id number] Acuity Surgical Inc [id number] - [id number] - [id number] Implanted:Qty: 1 on 12/09/2021 by Yamilex Drake MD at [facility] N/A: Spine Lumbar Acuity Surgical Inc 03/18/2026 [id number] / [id number] / Sea Spine Inc Integra Accell Evo3 Putty Graft 2.5cc Bone Demineralized Bone - [id number] - [id number] Implanted:Qty: 1 on 12/09/2021 by Yamilex rDake MD at [facility] N/A: Spine Lumbar Sea Spine Inc 07/28/2022 / [id number] / [id number] Globus Implanted:Qty: 1 on 12/09/2021 by Yamilex Drake MD at [facility] N/A: Spine Lumbar GLOBUS 10/05/2031 [id number] / / [id number] Globus Medical 1134.001 Creo Spinal Cap Locking Nonsterile Mis - [id number] Implanted:Qty: 6 on 12/09/2021 by Yamilex Drake MD at [facility] N/A: Spine Lumbar [employer] 1134.0010 / / Globus Medical 7146.011 Creo Amp Polyaxial Thread Tulip Spine Transfacet Screw Bone Cocr - [id number] Implanted:Qty: 6 on 12/09/2021 by Yamilex Drake MD at [facility] N/A: Spine Lumbar [employer] 7146.0110 / / Globus Medical 1067.4660 Creo Amp 6.5mm 60mm Modular Cannulated Spine Screw Bone - [id number] Implanted:Qty: 2 on 12/09/2021 by Yamilex Drake MD at [facility] N/A: Spine Lumbar [employer] 1067.4660 / / Globus Medical 1067.4655 Creo Amp 6.5mm 55mm Cannulated Modular Spine Screw Bone - [id number] Implanted:Qty: 3 on 12/09/2021 by Yamilex Drake MD at [facility] N/A: Spine Lumbar Globus Medical 1067.4655 / / Lifenet Vivigen Allograft Graft 10 Cc Bone Cortical Cancellous Demineral Bl-1500-003 - [id number] - [id number] Implanted:Qty: 1 on 11/15/2023 by Forrest Regan MD at [facility] N/A: Spine Lumbar Lifenet [id number] 01/07/2024 [facility]1500-003 / [id number] / Musculoskeletal Transplant Od10+ Mm L30 Mm Allograft Frozen Graft Bone Femoral Shaft 292097 - [id number] - [id number] Implanted:Qty: 1 on 11/15/2023 by Forrest Regan MD at [facility] N/A: Spine Lumbar Musculoskeletal Transplant [id number] 11/18/2027 [id number] / [id number] / Medtronic Inc Screw Spinal Anterior Cervical Solid Pyramid 6.5x35mm Titanium [id number] - [id number] Implanted:Qty: 2 on 11/15/2023 by Forrest Regan MD at [facility] N/A: Spine Lumbar Medtronic Inc [id number] / / Medtronic Inc 17mm 17mm Washer Spinal Titanium Bone Graft [id number] - [id number] Implanted:Qty: 2 on 11/15/2023 by Forrest Regan MD at [facility] N/A: Spine Lumbar Medtronic Inc [id number] / / Medtronic Inc Solera Cd Horizon 7.5mm 60mm Multiaxial Spine Screw Bone Cocr [id number] - [id number] Implanted:Qty: 5 on 11/15/2023 by Forrest Regan MD at [facility] N/A: Spine Lumbar Medtronic Inc [id number] / / Medtronic Inc Solera Cd Horizon 7.5mm 55mm Multiaxial Spine Screw Bone Cocr [id number] - [id number] Implanted:Qty: 1 on 11/15/2023 by Forrest Regan MD at [facility] N/A: Spine Lumbar Medtronic Inc [id number] / / Medtronic Inc Cd Horizon Break Off Spinal Screw Set Titanium Nonsterile 5.5 Mm 7072804 - [id number] Implanted:Qty: 6 on 11/15/2023 by Forrest Regan MD at [facility] N/A: Spine Lumbar Medtronic Inc [id number] / / Medtronic Inc 5.5mm 60mm Curve David Spinal Nonsterile [id number] - [id number] Implanted:Qty: 1 on 11/15/2023 by Forrest Regan MD at [facility] N/A: Spine Lumbar Medtronic Inc [id number] / / Medtronic Inc 5.5mm 55mm Curve David Spinal Nonsterile [id number] - [id number] Implanted:Qty: 1 on 11/15/2023 by Forrest Regan MD at [facility] N/A: Spine Lumbar Medtronic Inc [id number] / / Medtronic Inc David Spinal Thoracolumbar Straight Cd Horizon 5.7s203up [place] Chromium [id number] - [id number] Implanted:Qty: 1 on 02/06/2025 by Forrest Regan MD at N/A: Spine Lumbar Medtronic Inc [id number] / / Procedures Procedure Name Priority Date/Time [...] ED Urgent/IP Urgent 02/06/2025 7:27 PM CDT MN AN PROCEDURE PLACEHOLDER Routine 02/06/2025 3:39 PM CDT MN AN PROCEDURE PLACEHOLDER Routine 02/06/2025 3:39 PM CDT MN AN PROCEDURE PLACEHOLDER Routine 02/06/2025 3:39 PM CDT MN AN ELECTIVE ENDOTRACHEAL AIRWAY Routine 02/06/2025 3:39 [...] Read Routine (OP Routine) 11/28/2024 3:18 PM CLAIMS REPRESENTATIVE Lumbar radiculopathy TRANSTHORACIC ECHO (TTE) COMPLETE W DOPPLER/CF Routine 11/26/2024 11:05 AM CLAIMS REPRESENTATIVE from Last 3 Months Results * eGFR [...] BLOOD ORDERABLES Final Result Performing Organization Address [facility]/ZIP Co de Phone Number [facility] [address] [place] [address] * (ABNORMAL) CBC without differential (02/09/2025 6:27 AM CDT) [facility] WBC 8.78 3.80 - 9.90 K/cumm Hgb 8.7(L) 13.0 - 17.5 g/dL [facility] Hct 26.8(L) 38.9 - 50.3 % [facility] Plt 150 150 - 400 K/cumm [facility] MPV 10.3 9.1 - 12.3 fL [facility] RBC 2.93(L) 4.30 - 5.80 M/cumm [facility] MCV 91.5 81.3 - 96.4 fL [facility] MCH 29.7 27.1 - 33.3 pg [facility] MCHC 32.5 32.3 - 35.7 g/dL [facility] RDW CV 13.4 11.1 - 14.9 % [facility] RDW SD 44.9 35.7 - 48.1 fL [facility] NRBC abs 0.00 0.00 - 0.01 K/cumm [facility] Blood 02/09/2025 6:27 AM CDT 02/09/2025 7:11 AM CDT us Albert Bundy MD LAB BLOOD ORDERABLES Final Result [facility] [address] Department of [employer] [place], [place] [id number] * (ABNORMAL) Comprehensive metabolic panel (02/09/2025 6:27 AM CDT) [facility] Sodium 136 135 - 145 mmol/L Potassium, pl 4.0 3.3 - 4.9 mmol/L [facility] Chloride 101 97 - 110 mmol/L [facility] CO2 25 22 - 32 mmol/L [facility] Anion gap 10 2 - 15 mmol/L [facility] BUN 14 6 - 25 mg/dL [facility] Creatinine 0.86 0.80 - 1.30 mg/dL [facility] Glucose 126 70 - 199 mg/dL [facility] Comment: Interpretive Data Fasting glucose [...] 2022. Calcium 8.2(L) 8.5 - 10.3 mg/dL [facility] Bilirubin, total 0.7 0.1 - 1.2 mg/dL [facility] Protein, pl 6.1(L) 6.5 - 8.5 g/dL [facility] Albumin 3.3(L) 3.5 - 5.0 g/dL [facility] Alk phos 45 40 - 130 Units/L [facility] ALT 21 7 - 55 Units/L [facility] AST 26 10 - 50 Units/L [facility] Blood 02/09/2025 6:27 AM CDT 02/09/2025 7:10 AM CDT Albert Bundy MD LAB BLOOD ORDERABLES Final Result [facility] [address] Department [place] [address] * XR Scoliosis Ap Lat (02/08/2025 11:07 [...] Bundy MD LAB BLOOD ORDERABLES Final Result [facility] [address] Department [place] [address] * (ABNORMAL) CBC without differential (02/08/2025 6:05 AM CDT) WBC 13.43(H) 3.80 - 9.90 K/cumm Hgb 9.5(L) 13.0 - 17.5 g/dL [facility] Hct 29.0(L) 38.9 - 50.3 % [facility] Plt 168 150 - 400 K/cumm [facility] MPV 10.0 9.1 - 12.3 fL [facility] RBC 3.18(L) 4.30 - 5.80 M/cumm [facility] MCV 91.2 81.3 - 96.4 fL [facility] MCH 29.9 27.1 - 33.3 pg [facility] MCHC 32.8 32.3 - 35.7 g/dL [facility] RDW CV 13.4 11.1 - 14.9 % [facility] RDW SD 44.9 35.7 - 48.1 fL [facility] NRBC abs 0.00 0.00 - 0.01 K/cumm [facility] Blood 02/08/2025 6:05 AM CDT 02/08/2025 6:18 AM CDT us Albert Bundy MD LAB BLOOD ORDERABLES Final Result [facility] [address] Department [place] [address] * (ABNORMAL) Comprehensive metabolic panel (02/08/2025 6:05 AM CDT) Sodium 137 135 - 145 mmol/L Potassium, pl 4.1 3.3 - 4.9 mmol/L [facility] Chloride 101 97 - 110 mmol/L [facility] CO2 24 22 - 32 mmol/L [facility] Anion gap 12 2 - 15 mmol/L [facility] BUN 15 6 - 25 mg/dL [facility] Creatinine 0.86 0.80 - 1.30 mg/dL [facility] Glucose 140 70 - 199 mg/dL [facility] Comment: Interpretive Data Fasting glucose [...] 2022. Calcium 8.4(L) 8.5 - 10.3 mg/dL [facility] Bilirubin, total 0.5 0.1 - 1.2 mg/dL [facility] Protein, pl 6.5 6.5 - 8.5 g/dL [facility] Albumin 3.6 3.5 - 5.0 g/dL [facility] Alk phos 50 40 - 130 Units/L [facility] ALT 24 7 - 55 Units/L [facility] AST 29 10 - 50 Units/L [facility] Blood 02/08/2025 6:05 AM CDT 02/08/2025 6:18 AM CDT us Albert Bundy MD LAB BLOOD ORDERABLES Final Result Performing Organization Address [facility] Co de Phone Number [facility] [address] Department [place] [address] * eGFR (02/07/2025 5:50 AM CDT) eGFR >90 >=60 mL/min/1. 73 [...] 5:50 AM CDT 02/07/2025 6:49 AM CDT Albert Bundy MD LAB BLOOD ORDERABLES Final Result Performing Organization Address [facility]/ZIP Co de Phone Number [facility] [address] Department [place] [address] * (ABNORMAL) CBC without differential (02/07/2025 5:50 AM CDT) Pathologist [facility] WBC 13.67(H) 3.80 - 9.90 K/cumm Hgb 9.3(L) 13.0 - 17.5 g/dL [facility] Hct 28.8(L) 38.9 - 50.3 % [facility] Plt 143(L) 150 - 400 K/cumm [facility] MPV 10.0 9.1 - 12.3 fL [facility] RBC 3.10(L) 4.30 - 5.80 M/cumm [facility] MCV 92.9 81.3 - 96.4 fL [facility] MCH 30.0 27.1 - 33.3 pg [facility] MCHC 32.3 32.3 - 35.7 g/dL [facility] RDW CV 13.0 11.1 - 14.9 % [facility] RDW SD 43.7 35.7 - 48.1 fL [facility] NRBC abs 0.00 0.00 - 0.01 K/cumm [facility] Blood 02/07/2025 5:50 AM CDT 02/07/2025 6:49 AM CDT us Albert Bundy MD LAB BLOOD ORDERABLES Final Result [facility] [address] Department [place] [address] * (ABNORMAL) Comprehensive metabolic panel (02/07/2025 5:50 AM CDT) Sodium 138 135 - 145 mmol/L Potassium, pl 4.6 3.3 - 4.9 mmol/L [facility] Chloride 106 97 - 110 mmol/L [facility] CO2 18(L) 22 - 32 mmol/L [facility] Anion gap 14 2 - 15 mmol/L [facility] BUN 12 6 - 25 mg/dL [facility] Creatinine 0.67(L) 0.80 - 1.30 mg/dL [facility] Glucose 133 70 - 199 mg/dL [facility] Comment: Interpretive Data Fasting glucose [...] 2022. Calcium 7.3(L) 8.5 - 10.3 mg/dL [facility] Bilirubin, total 0.6 0.1 - 1.2 mg/dL [facility] Protein, pl 4.7(L) 6.5 - 8.5 g/dL [facility] Albumin 2.8(L) 3.5 - 5.0 g/dL [facility] Alk phos 29(L) 40 - 130 Units/L [facility] ALT 18 7 - 55 Units/L [facility] AST 22 10 - 50 Units/L [facility] Blood 02/07/2025 5:50 AM CDT 02/07/2025 6:49 AM CDT us Albert Bundy MD LAB BLOOD ORDERABLES Final Result [facility] [address] Department [place] [address] * eGFR (02/06/2025 9:35 PM CDT) eGFR [...] BLOOD ORDERABLES Final Result Performing Organization Address [facility]/ZIP Co de Phone Number [facility] [address] [place] [place] [address] * (ABNORMAL) CBC without differential (02/06/2025 9:35 PM CDT) [facility] WBC 11.61(H) 3.80 - 9.90 K/cumm Hgb 10.6(L) 13.0 - 17.5 g/dL [facility] Hct 32.4(L) 38.9 - 50.3 % [facility] Plt 134(L) 150 - 400 K/cumm [facility] MPV 9.8 9.1 - 12.3 fL [facility] RBC 3.52(L) 4.30 - 5.80 M/cumm [facility] MCV 92.0 81.3 - 96.4 fL [facility] MCH 30.1 27.1 - 33.3 pg [facility] MCHC 32.7 32.3 - 35.7 g/dL [facility] RDW CV 13.3 11.1 - 14.9 % [facility] RDW SD 44.3 35.7 - 48.1 fL [facility] NRBC abs 0.00 0.00 - 0.01 K/cumm [facility] Blood 02/06/2025 9:35 PM CDT 02/06/2025 9:44 PM CDT us Albert Bundy MD LAB BLOOD ORDERABLES Final Result [facility] [address] [place] [address] * (ABNORMAL) Basic metabolic panel (02/06/2025 9:35 PM CDT) Pathologist [facility] Sodium 135 135 - 145 mmol/L Potassium, pl 4.3 3.3 - 4.9 mmol/L [facility] Chloride 103 97 - 110 mmol/L [facility] CO2 21(L) 22 - 32 mmol/L [facility] Anion gap 11 2 - 15 mmol/L [facility] BUN 16 6 - 25 mg/dL [facility] Creatinine 0.87 0.80 - 1.30 mg/dL [facility] Glucose 184 70 - 199 mg/dL [facility] Comment: Interpretive Data Fasting glucose [...] 2022. Calcium 7.9(L) 8.5 - 10.3 mg/dL [facility] Blood 02/06/2025 9:35 PM CDT 02/06/2025 9:44 PM CDT us Albert Bundy MD LAB BLOOD ORDERABLES Final Result [facility] [address] Department [place] [address] * (ABNORMAL) CBC without differential (02/06/2025 8:51 PM CDT) Pathologist [facility] WBC 9.80 3.80 - 9.90 K/cumm Hgb 10.5(L) 13.0 - 17.5 g/dL [facility] Hct 32.4(L) 38.9 - 50.3 % [facility] Plt 139(L) 150 - 400 K/cumm [facility] MPV 9.5 9.1 - 12.3 fL [facility] RBC 3.52(L) 4.30 - 5.80 M/cumm [facility] MCV 92.0 81.3 - 96.4 fL [facility] MCH 29.8 27.1 - 33.3 pg [facility] MCHC 32.4 32.3 - 35.7 g/dL [facility] RDW CV 13.4 11.1 - 14.9 % [facility] RDW SD 45.5 35.7 - 48.1 fL [facility] NRBC abs 0.00 0.00 - 0.01 K/cumm [facility] Blood 02/06/2025 8:51 PM CDT 02/06/2025 8:57 PM CDT us Max Mendez DO LAB BLOOD ORDERABLES Fin al Result [facility] [address] Department [place] [address] * [place] Fluoroscopy < 1 Hour (02/06/2025 8:45 PM CDT) Narrative [facility] - 02/06/2025 8:46 PM CDT The images from this study are not interpreted by Radiology. Please refer to the physician's procedure / OR operative note. Forrest Regan MD IMG FLUOROSCOPY PROCEDURES Final Result Performing Organization Address [facility]/ZIP Co de Phone Number [facility] * XR Spine Lumbar 2 or 3 [...] findings. Electronically signed by: Clarence Hallman M.D. us Forrest Regan MD IMG XR PROCEDURES Final Re sult * [place] AN PROCEDURE PLACEHOLDER (02/06/2025 3:39 PM CDT) Rosemarie Stafford CRNA - 02/06/2025 3:39 PM CDT Rosemarie Garber CRNA 02/06/2025 3:40 PM Arterial Line Patient location: OR Indication: continuous blood pressure monitoring Ultrasound assisted: yes Staff: Placed by: Anesthesiologist: Max Mendez DO Procedure prep: Prep solution: chlorhexadine/alcohol Prep: provider hat/mask Arterial line: Catheter size: 20 gauge Catheter type: wire-guided catheter Laterality: left Site: radial artery Line secured: tape and Tegaderm Results: good waveform and good blood return Number of attempts: 1 Assessment: Events: patient tolerated procedure well with no complications Max Mendez DO ANESTHESIA ORDERABLES Fi nal Result * [place] AN PROCEDURE PLACEHOLDER (02/06/2025 3:39 PM CDT) Rosemarie Stafford CRNA - 02/06/2025 3:39 PM CDT Rosemarie Garber CRNA 02/06/2025 3:39 PM Peripheral IV Catheter Patient location: OR Staff: Placed by: NEEDLE BOARD REPAIRER: Rosemarie Garber CRNA Preprocedure prep: Prep solution: chlorhexadine PPE: provider hat/mask and gloves PIV line: Laterality: right Site: forearm Catheter size: 18 g Technique: palpatation Procedure details: occlusive dressing applied and good blood return Number of attempts: 2 Assessment: Events: patient tolerated procedure well with no complications Max Mendez DO ANESTHESIA ORDERABLES Fi nal Result * [place] AN ELECTIVE ENDOTRACHEAL AIRWAY, [place] AN PROCEDURE PLACEHOLDER (02/06/2025 3:39 PM CDT) Narrative Rosemarie Garber CRNA - 02/06/2025 3:39 PM CDT Rosemarie Gabrer CRNA 02/06/2025 3:39 PM Airway Patient location: OR Urgency: elective Indications for airway management: anesthesia Difficult airway: no Staff: Placed by: NEEDLE BOARD REPAIRER: Rosemarie Garber CRNA Airway prep: Preoxygenated: yes [...] 1 Planned trial extubation: yes Max Mendez DO ANESTHESIA ORDERABLES Fi nal Result * Check Sample (02/06/2025 10:16 AM CDT) ABO Rh O Negative MBC HCLL OTHER 02/06/2025 10:1 6 AM CDT 02/06/2025 10:45 AM CDT Princess Purvis DIRECTOR TITLE LAB BLOOD ORDERABLES nal Result [facility] [address] Department [place] [address] [facility] * XR Scoliosis 4 or 5 View [...] device with intact lead. Procedure Note Arnie See, DO - 02/04/2025 EXAMINATION: XR SCOLIOSIS 4 [...] Outside Reference (01/29/2025 3:23 PM CDT) Impressions [facility] - 01/29/2025 3:23 PM CDT These images are for Reference purposes only and have not been reviewed by [facility]. There will be no report generated by a [facility] Radiologist. Narrative [facility] - 01/29/2025 3:23 PM CDT EXAMINATION: Images For Reference Purposes Only Forrest Regan MD IMG CT PROCEDURES Final Re sult Performing Organization Address [facility]/ZIP Co de Phone Number [facility] * Neuro CT Outside Reference (01/29/2025 3:05 PM CDT) Impressions [facility] - 01/29/2025 3:05 PM CDT These images are for Reference purposes only and have not been reviewed by [facility]. There will be no report generated by a [facility] Radiologist. Narrative [facility] - 01/29/2025 3:05 PM CDT EXAMINATION: Images For Reference Purposes Only Forrest Regan MD IMG CT PROCEDURES Final Re sult Performing Organization Address [facility] Co de Phone Number [facility] [...] gran abs 0.0 0.0 - 0.1 K/cumm [facility] Lymphocyte abs 1.5 0.8 - 3.3 K/cumm [facility] Monocyte abs 0.5 0.2 - 0.8 K/cumm [facility] Eosinophil abs 0.2 0.0 - 0.5 K/cumm [facility] Basophil abs 0.0 0.0 - 0.1 K/cumm [facility] Neutrophil pct 65.1 % [facility] Comment: Interpretive Data Percent cell count reference ranges are not reported, since discordance with absolute values may lead to misinterpretation of CBC data. Current Interpretive Data was last revised on 2018. Imm gran pct 0.5 % [facility] Comment: Interpretive Data Percent cell count reference ranges are not reported, since discordance with absolute values may lead to misinterpretation of CBC data. Current Interpretive Data was last revised on 2018. Lymphocyte pct 23.4 % [facility] Comment: Interpretive Data Percent cell count reference ranges are not reported, since discordance with absolute values may lead to misinterpretation of CBC data. Current Interpretive Data was last revised on 2018. Monocyte pct 8.2 % [facility] Comment: Interpretive Data Percent cell count reference ranges are not reported, since discordance with absolute values may lead to misinterpretation of CBC data. Current Interpretive Data was last revised on 2018. Eosinophil pct 2.3 % [facility] Comment: Interpretive Data Percent cell count reference ranges are not reported, since discordance with absolute values may lead to misinterpretation of CBC data. Current Interpretive Data was last revised on 2018. Basophil pct 0.5 % [facility] Comment: Interpretive Data Percent cell count reference ranges are not reported, since discordance with absolute values may lead to misinterpretation of CBC data. Current Interpretive Data was last revised on 2018. Blood 01/16/2025 3:30 PM CDT 01/16/2025 3:30 PM CDT us Forrest Regan MD LAB BLOOD ORDERABLES Final Result [facility] [address] Department [place] [address] * (ABNORMAL) CBC with auto differential (01/16/2025 3:30 PM CDT) WBC 6.5 3.8 - 9.9 K/cumm Hgb 14.2 13.0 - 17.5 g/dL [facility] Hct 45.2 38.9 - 50.3 % [facility] Plt 223 150 - 400 K/cumm [facility] MPV 9.8 9.1 - 12.3 fL [facility] RBC 4.95 4.30 - 5.80 M/cumm [facility] MCV 91.3 81.3 - 96.4 fL [facility] MCH 28.7 27.1 - 33.3 pg [facility] MCHC 31.4(L) 32.3 - 35.7 g/dL [facility] RDW CV 13.3 11.1 - 14.9 % [facility] RDW SD 44.4 35.7 - 48.1 fL [facility] NRBC abs 0.00 0.00 - 0.01 K/cumm [facility] Blood 01/16/2025 3:30 PM CDT 01/16/2025 3:30 PM CDT Forrest Regan MD LAB BLOOD ORDERABLES Final Result Performing Organization Address City/[facility]/ZIP Co de Phone Number [facility] [address] [place] [address] * Erythrocyte sedimentation rate (01/16/2025 3:30 PM CDT) Erythrocyte sedimentation rate 8 1 - 20 mm/hr Blood 01/16/2025 3:30 PM CDT 01/16/2025 3:30 PM CDT Forrest Regan MD LAB BLOOD ORDERABLES Final Result Performing Organization Address [facility] Co de Phone Number [facility] [address] [place] [address] * (ABNORMAL) Hemoglobin A1c (01/16/2025 3:30 PM CDT) Hgb A1C 5.7(H) 4.0 - 5.6 % Estimated Average Glucose 117 mg/dL [facility] Comment: The ADA recommends reporting an estimated Average Glucose (eAG) with all Hemoglobin A1c results using the equation derived from a study of 507 normal and diabetic adults. Minority populations were underrepresented and children were not included. (Diabetes Care 31:5086-8292, 2008). The eAG is not equivalent to a fasting glucose. Blood 01/16/2025 3:30 PM CDT 01/16/2025 3:30 PM CDT Forrest Regan MD LAB BLOOD ORDERABLES Final Result Performing Organization Address [facility] Co de Phone Number [facility] [address] [place] [address] * eGFR (01/16/2025 3:29 PM CDT) eGFR [...] BLOOD ORDERABLES Final Result Performing Organization Address City/[facility]/ZIP Co de Phone Number [facility] [address] Department of [employer] [place], [place] [id number] * (ABNORMAL) Vitamin D 25 hydroxy (01/16/2025 3:29 PM CDT) Pathologist [facility] Vitamin D 25-OH 20(L) 30 - 80 ng/mL Blood 01/16/2025 3:29 PM CDT 01/16/2025 3:29 PM CDT us Forrest Regan MD LAB BLOOD ORDERABLES Final Result Performing Organization Address [facility] Co de Phone Number [facility] [address] Department [employer] [place], [place] [id number] * Type and screen (01/16/2025 3:29 PM CDT) ABO Rh O Negative Lorenza, indirect Negative [facility] Blood 01/16/2025 3:29 PM CDT 01/16/2025 3:34 PM CDT Narrative [facility] - 01/16/2025 4:18 PM CDT Is this test being ordered in advance for a procedure?->Yes Expected date of procedure:->02/06/25 Has the patient been transfused in the past 3 months?->No us Princess Purvis NP LAB BLOOD BANK TEST ORD ERABLES Final Result Performing Organization Address [facility] Co de Phone Number [facility] [address] Department of [employer] [place], [place] [id number] * CRP (acute phase) (01/16/2025 3:29 PM CDT) Pathologist [facility] CRP 3.4 <=10.0 mg/L Blood 01/16/2025 3:29 PM CDT 01/16/2025 3:29 PM CDT us Forrest Regan MD LAB BLOOD ORDERABLES Final Result Performing Organization Address [facility]/ZIP Co de Phone Number [facility] [address] Department [employer] [place], [place] [phone] * Albumin (01/16/2025 3:29 PM CDT) Pathologist [facility] Albumin 4.0 3.5 - 5.0 g/dL Blood 01/16/2025 3:29 PM CDT 01/16/2025 3:29 PM CDT Forrest Regan MD LAB BLOOD ORDERABLES Final Result [facility] [address] Department [place] [address] * Comprehensive metabolic panel (01/16/2025 3:29 PM CDT) Sodium 135 135 - 145 mmol/L Potassium, pl 4.1 3.3 - 4.9 mmol/L [facility] Chloride 99 97 - 110 mmol/L [facility] CO2 24 22 - 32 mmol/L [facility] Anion gap 12 2 - 15 mmol/L [facility] BUN 17 6 - 25 mg/dL [facility] Creatinine 1.02 0.80 - 1.30 mg/dL [facility] Glucose 86 70 - 199 mg/dL [facility] Comment: Interpretive Data Fasting glucose [...] 2022. Calcium 9.0 8.5 - 10.3 mg/dL [facility] Bilirubin, total 0.8 0.1 - 1.2 mg/dL [facility] Protein, pl 7.5 6.5 - 8.5 g/dL [facility] Albumin 4.0 3.5 - 5.0 g/dL [facility] Alk phos 60 40 - 130 Units/L [facility] ALT 30 7 - 55 Units/L [facility] AST 26 10 - 50 Units/L [facility] Blood 01/16/2025 3:29 PM CDT 01/16/2025 3:29 PM CDT us Forrest Regan MD LAB BLOOD ORDERABLES Final Result Performing Organization Address City/[facility]/ZIP Co de Phone Number [facility] [address] [place] [address] * Urinalysis reflex to microscopic and culture Urine, clean voided (01/16/2025 2:46 PM CDT) Color, ur Yellow Yellow Clarity, ur Clear Clear [facility] Specific gravity, ur 1.024 1.003 - 1.030 [facility] pH, urine 6.5 [facility] Comment: Interpretive Data U rine pH is affected by diet, medications, systemic acid-base disturbances, and renal tubular function. pH may affect urinary stone formation. For example, urine pH below 6.0 may help reduce the tendency for calcium phosphate stones and pH greater than 6.0 may reduce the tendency for uric acid stone formation. Source: [facility] Current Interpretive Data was last revised on 2017 Protein, ur ql Negative Negative [facility] Glucose, ur ql Negative Negative [facility] Ketones, ur Negative Negative [facility] Bilirubin, ur Negative Negative [facility] Blood, ur Negative Negative [facility] Urobilinogen, ur <2.0 <2.0 mg/dL [facility] Nitrite, ur Negative Negative [facility] Leukocyte esterase, ur Negative Negative [facility] UA reflex comment Reflex conditions for microscopic UA and culture not met. [facility] Urine, clean voided 01/16/2025 2:46 PM CDT 01/16/2025 7:09 PM CDT Forrest Regan MD LAB MICROBIOLOGY - GENERAL ORDERABLES Final Result [facility] [address] [place] [address] * Nicotine metabolite screen, urine (01/16/2025 2:46 PM CDT) Nicotine, ur <5.0 <5.0 ng/mL [facility] Cotinine, ur <5.0 <5.0 ng/mL [facility] Anabasine ur <2.0 <2.0 ng/mL [facility] Comment: ADDITIONAL INFORMATION This test was developed and its performance characteristics determined by [facility] in a manner consistent with CLIA requirements. This test has not been cleared or approved by the U.S. Food and Drug Administration. Test Performed by: [facility] [address] [place] [address] Civil Structural Engineer: Sybil Escobar Ph.D.; CLIA# [id number] Nornicotine, ur <2.0 <2.0 ng/mL [facility] Urine 01/16/2025 2:46 PM CDT 01/16/2025 9:57 PM CDT Forrest Regan MD LAB URINE ORDERABLES Final Result Performing Organization Address City/State/[facility] Co de Phone Number [facility] [address] Department [place] [address] [facility] * XR Spine Lumbar Ap [...] left upper abdomen. Procedure Note Arnie See, - 01/07/2025 EXAMINATION: XR SPINE LUMBAR AP [...] Lumbar/Sacral Selective Nerve Root INJ (TFE) Right (01446) (11/28/2024 3:18 PM CLAIMS REPRESENTATIVE) Narrative [facility] - 11/28/2024 3:18 PM CLAIMS REPRESENTATIVE The images from this study are not interpreted by Radiology. Please refer to the physician's procedure / OR operative note. us Jojo Oviedo MD G PAIN MGMT PROCEDURES F inal Result [facility] * Transthoracic Echo (TTE) Complete W Doppler/CF (11/26/2024 11:05 AM CLAIMS REPRESENTATIVE) Anatomical Region Laterality Modality Ultrasound us Farzad Anthony MD CV ECHO PROCEDURES Final R esult from Last 3 Months Insurance [employer] [facility] [employer] [place] [employer] [place] Advance Directives For more information, please contact: [phone] * Full Code (Latest Code Status on [...] 6:52 PM 12/12/2021 4:56 PM Care Teams Hot Top Liner Helper Relationship Specialty Start Date End Date Rome Jacobson MD [address] [address] PCP - General Family Medicine 01/07/25 Filipe Briggs MD [address] [place] [address] [place] [address] Referring Physician Cardiovascular Disease 01/17/25
--- OUTSIDE RECORDS SUMMARY | 2025-02-17 19:30 | XMS_ITS | Continuity of Care Document ---
Author Organization [facility] Address [address] [place] [address] [place] [address] Phone Care Team Providers Care Pulp And Paper Tester Name Role Phone Gordon Young MD Unavailable Unavailable Advance Directives Directive Yes / No Effective Date File Name No Information Encounters Encounter Description Practice Location Reason(s) For Visit Diagnoses Date Provider Providers Copied on Encounter [facility], [address] [place], [place], [id number], [place] tel:[phone] [facility] No Information [address]. [address] [facility], [place], [place], [id number], [place]. tel:[phone] Family History Family Member Type Diagnosis Age At Onset No Information Payers Payer name Insurance type Covered libertarian ID Authoriza tion(s) No Information Social History [...]
--- OUTSIDE RECORDS SUMMARY | 2025-02-17 19:30 | XMS_ITS | CONTINUITY OF CARE DOCUMENT ---
Author Name kamla cason Address Unknown Organization [facility] Address [address] [place] [address] Phone [phone] Care Team Providers Care Assistant Professor Of Geography Name Role Phone Epi TORRES, Unavailable [phone] MARK LOPEZ Unavailable [phone] INSURANCE PROVIDERS Payer name Policy type / Coverage type Saira red republican ID [facility] [id number]
== END 2025-02-17 19:20 | disposition left against medical advice (07) ==
DX: Z53.21 Procedure and treatment not carried out due to patient leaving prior to being seen by health care provider (principal)
CPT/HCPCS: 99199